=== PATIENT | male | born 1980 | race Caucasian/White ===

== ENCOUNTER 2018-03-12 13:59 | Emergency (ER) | payer MEDICARE, MEDICAID ==
[2018-03-12] MEDS ORDERED: SODIUM CHLORIDE 0.9% 1,000 ML IV ONE (14:16)
[2018-03-12] MEDS ORDERED: MIDAZOLAM 2 MG/2 ML VIAL IVP STA ×2 (14:16→16:31)
--- NOTE | 2018-03-12 14:19 | ED Physician Documentation ---
PD HPI MHE - Stated complaint Stated Complaint: SZ - Chief complaint Chief Complaint: MHE - History obtained from History obtained from: Patient, Other (CHART REVIEW) - History of Present Illness Primary symptom: Other (37-year-old gentleman somehow ambulated in despite his clearly intoxicated state and requested a refill of his Keppra and admits to suicidal ideation. He is quite uncooperative on history and physical. When I enter the room he is somnolent and then he will jerk his head up and looked at me and swear. He is belligerent and labile. He says that he ran out of his Keppra because his left him, when I ask him if his took his medications he simply replies "fuck you.") Review of Systems Unable to obtain: Confused, Intoxicated PD PAST MEDICAL HISTORY - Past Medical History Cardiovascular: Hypertension, Angina, [place] - Past Surgical History Past Surgical History: Yes General: Appendectomy - Present Medications Home Medications: Ambulatory Orders Medication Instructions Recorded Confirmed Furosemide 20 mg PO DAILY 06/16/14 04/14/15 Isosorbide Mononitrate [Isosorbide 30 mg PO DAILY 06/16/14 04/14/15 Mononitrate ER] Lisinopril 10 mg PO DAILY 06/16/14 04/14/15 Metoprolol Tartrate 25 mg PO DAILY 06/16/14 04/14/15 Sertraline HCl 100 mg PO DAILY 06/16/14 04/14/15 diltiaZEM CD [Cardizem Cd] 240 mg PO DAILY 06/16/14 04/14/15 levETIRAcetam [Keppra] 1,500 mg PO BID 01/06/15 04/14/15 Lorazepam [Ativan] 1 mg PO [id number] PRN #30 tablet 04/14/15 Promethazine [Phenergan] 25 - 50 mg PO Q6H PRN #30 tab 04/14/15 Clotrimazole [Athlete's Foot] 60 gm TP BID #60 cream..g. 07/15/15 Ibuprofen 800 mg PO TID PRN #30 tablet 07/15/15 Sulfamethoxazole/Trimethoprim 1 each PO BID #20 tablet 07/15/15 [Bactrim Ds Tablet] cephALEXin [Cephalexin] 500 mg PO TID #30 capsule 12/18/15 levETIRAcetam [Keppra] 3 tab PO BID #120 tablet 03/12/18 - Allergies Allergies/Adverse Reactions: Allergies Allergy/AdvReac Type Severity Reaction Status Date / Time morphine Allergy Hives Verified 01/05/15 18:30 Penicillins Allergy Hives Verified 01/05/15 18:30 - Social History Does the pt smoke?: No Smoking Status: Current every day smoker Does the pt drink ETOH?: No Does the pt have substance abuse?: No - Immunizations Immunizations are current?: No Immunizations: TDAP >10years/unknown - POLST Patient has POLST: No PD ED PE NORMAL - Vitals Vital signs reviewed: Yes - General General: Other (He is vacillating between somnolent and agitated and belligerent. He is swearing a lot and has dilated pupils. He is carrying a knife and when this is taken from him he becomes even more belligerent and requires restraints.) - HEENT HEENT: Other (Dilated pupils, unable to test extraocular movements because of belligerence.) - Neck Neck: Supple, no meningeal sign, No bony TTP - Cardiac Cardiac: RRR, No murmur - Respiratory Respiratory: No respiratory distress, Clear bilaterally - Abdomen Abdomen: Normal bowel sounds, Soft, Non tender - Back Back: No CVA TTP, No spinal TTP - Extremities Extremities: No deformity, No tenderness to palpate, Normal ROM s pain - Neuro Neuro: Other (He is uncooperative with orientation testing.) Eye Opening: Spontaneous Motor: Obeys Commands Verbal: Inappropriate GCS Score: 13 Results - Vitals Vitals: Vital Signs - 24 hr 03/12/18 03/12/18 03/12/18 14:02 16:54 19:23 Temperature 36.0 C L Heart Rate 97 94 89 Respiratory 20 16 17 Rate Blood Pressure 177/111 H 149/107 H 171/133 H O2 Saturation 97 100 100 Oxygen O2 Source Room air - EKG (time done) 1453 Rate: Rate (enter#) (85) Rhythm: NSR [place]: Normal Intervals: Normal [place] QRS: Normal Ischemia: ST elevation c/w repol Computer interpretation: Agree with computer - Labs Labs: Laboratory Tests 03/12/18 03/12/18 03/12/18 13:53 14:40 14:40 WBC 9.2 RBC 5.02 Hgb 16.8 Hct 47.6 MCV 94.7 H MCH 33.5 H MCHC 35.4 RDW 12.5 Plt Count 266 MPV 8.9 Neut # (Auto) 5.9 Lymph # (Auto) 2.6 [place] # (Auto) 0.5 Eos # (Auto) 0.0 Baso # (Auto) 0.0 Absolute Nucleated RBC 0.01 Nucleated RBC % 0.1 Sodium 139 Potassium 3.0 L Chloride 98 L Carbon Dioxide 31 Anion Gap 10.0 BUN 10 Creatinine 0.9 Estimated GFR (MDRD) 96 Glucose 92 Calcium 10.1 Total Bilirubin 0.4 AST 49 H ALT 68 H Alkaline Phosphatase 103 Total Creatine Kinase 45 Troponin I Total Protein 8.9 H Albumin 4.0 Globulin 4.9 H Albumin/Globulin Ratio 0.8 L Lipase 40 Urine Color YELLOW Urine Clarity CLEAR Urine pH 6.0 Ur Specific [place] <=1.005 Urine Protein NEGATIVE Urine Glucose (UA) NEGATIVE Urine Ketones NEGATIVE Urine Occult Blood NEGATIVE Urine Nitrite NEGATIVE Urine Bilirubin NEGATIVE Urine Urobilinogen 0.2 (NORMAL) Ur Leukocyte Esterase NEGATIVE Ur Microscopic Review NOT INDICATED Urine Culture Comments NOT INDICATED Salicylates < 6.0 Urine Opiates Screen POSITIVE H Ur Oxycodone Screen NEGATIVE Urine Methadone Screen NEGATIVE Ur Propoxyphene Screen NEGATIVE Acetaminophen < 10 L Ur Barbiturates Screen NEGATIVE Ur Tricyclics Screen NEGATIVE Ur Phencyclidine Scrn NEGATIVE Ur Amphetamine Screen POSITIVE H U Methamphetamines Scrn POSITIVE H U Benzodiazepines Scrn NEGATIVE Urine Cocaine Screen NEGATIVE U Cannabinoids Screen POSITIVE H Ethyl Alcohol 274.4 03/12/18 14:40 WBC RBC Hgb Hct MCV MCH MCHC RDW Plt Count MPV Neut # (Auto) Lymph # (Auto) [place] # (Auto) Eos # (Auto) Baso # (Auto) Absolute Nucleated RBC Nucleated RBC % Sodium Potassium Chloride Carbon Dioxide Anion Gap BUN Creatinine Estimated GFR (MDRD) Glucose Calcium Total Bilirubin AST ALT Alkaline Phosphatase Total Creatine Kinase Troponin I < 0.04 Total Protein Albumin Globulin Albumin/Globulin Ratio Lipase Urine Color Urine Clarity Urine pH Ur Specific [place]clean Urine Protein Urine Glucose (UA) Urine Ketones Urine Occult Blood Urine Nitrite Urine Bilirubin Urine Urobilinogen Ur Leukocyte Esterase Ur Microscopic Review Urine Culture Comments Salicylates Urine Opiates Screen Ur Oxycodone Screen Urine Methadone Screen Ur Propoxyphene Screen Acetaminophen Ur Barbiturates Screen Ur Tricyclics Screen Ur Phencyclidine Scrn Ur Amphetamine Screen U Methamphetamines Scrn U Benzodiazepines Scrn Urine Cocaine Screen U Cannabinoids Screen Ethyl Alcohol PD MEDICAL DECISION MAKING - ED course ED course: 37-year-old gentleman presents intoxicated on methamphetamines and also alcohol requesting refills of his seizure medication. He is quite belligerent and violence on arrival and had to be restrained for several hours, but after his intoxicants and worn off was much more pleasant and denied suicidality. - Sepsis Event Vital Signs: Vital Signs - 24 hr 03/12/18 03/12/18 03/12/18 14:02 16:54 19:23 Temperature 36.0 C L Heart Rate 97 94 89 Respiratory 20 16 17 Rate Blood Pressure 177/111 H 149/107 H 171/133 H O2 Saturation 97 100 100 Oxygen O2 Source Room air Departure - Departure Disposition: 01 Home, Self Care Clinical Impression: Recurrent seizures, Methamphetamine abuse Epilepsy Qualifiers: Epilepsy type: unspecified Intractability: not intractable Status epilepticus: without status epilepticus Qualified Code(s): G40.909 - Epilepsy, unspecified, not intractable, without status epilepticus Alcoholic intoxication Qualifiers: Complication of substance-induced condition: uncomplicated Qualified Code(s): F10.920 - Alcohol use, unspecified with intoxication, uncomplicated Condition: Good Record reviewed to determine appropriate education?: Yes Instructions: ED Alcohol Intoxication, ED Drug Abuse General Prescriptions: levETIRAcetam [Keppra] 3 tab PO BID #120 tablet Comments: Please refrain from drugs and alcohol and follow-up with your primary care physician for further evaluation, treatment, and medication refills. Your blood pressure was elevated today on check into the emergency department. This does not mean that you have hypertension, it is a common phenomenon to come to the emergency department and have elevated blood pressure. I recommend that you see your primary care physician within the week to have it rechecked when you are feeling better.
[2018-03-12 14:58] LABS: BASOPHILS % (AUTO) 0.3 %; EOSINOPHILS % (AUTO) 0.3 %; HGB - HEMOGLOBIN 16.8 g/dL (14.0-18.0); LYMPHOCYTES # (AUTO) 2.6 10^3/uL (1.5-3.5); LYMPHOCYTES % (AUTO) 28.8 %; MEAN CORPUSCULAR HEMOGLOBIN 33.5 pg (27.0-31.0); MEAN CORPUSCULAR HGB CONC 35.4 g/dL (32.0-36.0); MEAN CORPUSCULAR VOLUME 94.7 fL (80.0-94.0); MEAN PLATELET VOLUME 8.9 fL (7.4-11.4); MONOCYTES # (AUTO) 0.5 10^3/uL (0.0-1.0); MONOCYTES % (AUTO) 5.9 %; NEUTROPHILS # (AUTO) 5.9 10^3/uL (1.5-6.6); NEUTROPHILS % (AUTO) 64.7 %; PLT - PLATELET COUNT 266 10^3/uL (130-450); RED BLOOD COUNT 5.02 10^6/uL (4.70-6.10); RED CELL DISTRIBUTION WIDTH 12.5 % (12.0-15.0); WHITE BLOOD COUNT 9.2 x10^3/uL (4.8-10.8)
[2018-03-12 15:14] LABS: ALBUMIN/GLOBULIN RATIO 0.8 (1.0-2.2); ALKALINE PHOSPHATASE 103 IU/L (42-121); ALT ALANINE AMINOTRANSFERASE 68 IU/L (10-60); AST ASPARTATE AMINOTRANSFERASE 49 IU/L (10-42); BILIRUBIN,TOTAL 0.4 mg/dL (0.2-1.0); BUN - BLOOD UREA NITROGEN 10 mg/dL (6-20); CALCIUM 10.1 mg/dL (8.5-10.3); CARBON DIOXIDE - CO2 31 mmol/L (21-32); CHLORIDE 98 mmol/L (101-111); CK- CREATINE KINASE 45 IU/L (22-269); CREATININE 0.9 mg/dL (0.6-1.2); GFR - MDRD 96 (>89); GLUCOSE 92 mg/dL (70-100); LIPASE 40 U/L (22-51); SALICYLATE < 6.0 mg/dL; SODIUM 139 mmol/L (135-145); TOTAL PROTEIN 8.9 g/dL (6.7-8.2)
[2018-03-12 15:20] LABS: ACETAMINOPHEN < 10 ug/mL (10-30)
[2018-03-12] MEDS ORDERED: HALOPERIDOL 5 MG/ML VIAL ONE (15:25)
[2018-03-12] MEDS ORDERED: HALOPERIDOL 5 MG/ML VIAL IVP ONE (15:25)
[2018-03-12] MEDS ORDERED: POTASSIUM CHLOR 10 MEQ/100 ML 10 MEQ/100 ML BAG IV ONE (15:40)
[2018-03-12] MEDS ORDERED: LORazepam 2 MG/ML VIAL IVP STA (15:42)
[2018-03-12 15:43] LABS: MUDS CUTOFF CONCENTRATIONS CUTOFF CONC BELOW:
[2018-03-12 15:45] LABS: BILIRUBIN,URINE NEGATIVE (NEGATIVE); GLUCOSE, URINE (UA) NEGATIVE (NEGATIVE); KETONES,URINE (UA) NEGATIVE (NEGATIVE); LEUKOCYTE ESTERASE, URINE NEGATIVE (NEGATIVE); NITRITE,URINE NEGATIVE (NEGATIVE); OCCULT BLOOD,URINE NEGATIVE (NEGATIVE); PROTEIN,URINE NEGATIVE (NEGATIVE); UROBILINOGEN,URINE 0.2 (NORMAL) E.U./dL (NORMAL)
[2018-03-12 15:46] LABS: CLARITY,URINE CLEAR (CLEAR)
[2018-03-12 15:54] LABS: COCAINE SCREEN URINE NEGATIVE (NEGATIVE)
[2018-03-12 15:55] LABS: AMPHETAMINE SCREEN,URINE POSITIVE (NEGATIVE); BENZODIAZEPINES SCREEN, URINE NEGATIVE (NEGATIVE); METHADONE SCREEN, URINE NEGATIVE (NEGATIVE); METHAMPHETAMINES SCREEN, URINE POSITIVE (NEGATIVE); OPIATE SCREEN, URINE POSITIVE (NEGATIVE); OXYCODONE SCREEN, URINE NEGATIVE (NEGATIVE); PROPOXYPHENE SCREEN, URINE NEGATIVE (NEGATIVE); TRICYCLIC ANTIDEPRESSANT,URINE NEGATIVE (NEGATIVE)
[2018-03-12] MEDS ORDERED: diphenhydrAMINE INJ 50 MG/ML VIAL IVP STA (16:31)
[2018-03-12] MEDS ORDERED: levETIRAcetam 250 MG TABLET PO STA (19:14)
[2018-03-12] MEDS: LORazepam 2 MG/ML VIAL IVP STA ×2 (19:25→19:27)
[2018-03-12 20:26] VITALS: BP 159/100
== END 2018-03-12 20:30 | disposition home or self-care (01) ==
LOC: ED 13:59
DX: G40.909 Epilepsy, unspecified, not intractable, without status epilepticus (principal); F10.920 Alcohol use, unspecified with intoxication, uncomplicated; F15.129 Other stimulant abuse with intoxication, unspecified; I10 Essential (primary) hypertension; Z78.1 Physical restraint status
CPT/HCPCS: 36415; 80053; 81003; 82550; 83690; 84484; 85025; 93005; 96365; 96366; 96375; 96376; 99284; A9270; J1200; J2060; 80306; 80307; 80320; 80329; 81001; 87086

== ENCOUNTER 2018-03-24 16:04 | Inpatient (IN) | payer MEDICARE, MEDICAID ==
[2018-03-24 17:09] LABS: BASOPHILS % (AUTO) 0.3 %; EOSINOPHILS # (AUTO) 0.1 10^3/uL (0.0-0.7); EOSINOPHILS % (AUTO) 0.4 %; HGB - HEMOGLOBIN 13.3 g/dL (14.0-18.0); LYMPHOCYTES % (AUTO) 8.7 %; MEAN CORPUSCULAR HEMOGLOBIN 33.5 pg (27.0-31.0); MEAN CORPUSCULAR HGB CONC 35.2 g/dL (32.0-36.0); MEAN PLATELET VOLUME 8.9 fL (7.4-11.4); MONOCYTES # (AUTO) 0.9 10^3/uL (0.0-1.0); MONOCYTES % (AUTO) 7.9 %; NEUTROPHILS # (AUTO) 9.9 10^3/uL (1.5-6.6); NEUTROPHILS % (AUTO) 82.7 %; PLT - PLATELET COUNT 155 10^3/uL (130-450); RED BLOOD COUNT 3.96 10^6/uL (4.70-6.10); RED CELL DISTRIBUTION WIDTH 12.7 % (12.0-15.0); WHITE BLOOD COUNT 11.9 x10^3/uL (4.8-10.8)
[2018-03-24 17:20] LABS: ALBUMIN/GLOBULIN RATIO 0.8 (1.0-2.2); BILIRUBIN,TOTAL 0.7 mg/dL (0.2-1.0); CALCIUM 8.6 mg/dL (8.5-10.3); TOTAL PROTEIN 6.8 g/dL (6.7-8.2)
[2018-03-24] MEDS ORDERED: KETOROLAC 60 MG/2 ML VIAL IVP STA (19:02)
[2018-03-24] MEDS ORDERED: VANCOMYCIN INJ 2 GM in SODIUM CHLORIDE 0.9% 500 ML IV STA (19:02)
[2018-03-24] MEDS ORDERED: cefTRIAXone 1 GM VIAL IVP STA (19:02)
[2018-03-24] MEDS ORDERED: SODIUM CHLORIDE 0.9% 1,000 ML IV ONE (19:26)
--- NOTE | 2018-03-24 19:26 | ED Physician Documentation ---
History of Present Illness - Stated complaint Stated Complaint: RED L UPPERARM/PX/L SHOULDER WOUND - Chief complaint Chief Complaint: Wound - History obtained from History obtained from: Patient - History of Present Illness Timing: Yesterday Pain level max: 10 Pain level now: 10 Quality: "pain" Improved by: nothing Worsened by: palpation, movement - Additonal information Additional information: Patient is a 37-year-old male who presents to the emergency department for redness and swelling to the left arm. This started yesterday and has steadily worsened. He is having subjective fevers as well as chills. Has not taken anything for this. Denies any IV or IM drug use. States he did use heroin in the past, but has not used for several years. Review of Systems Ten Systems: 10 systems reviewed and negative Constitutional: reports: Fever, Chills Ears: denies: Ear pain, Drainage/discharge Nose: denies: Rhinorrhea / runny nose, Congestion Throat: denies: Sore throat Cardiac: denies: Chest pain / pressure Respiratory: denies: Cough GI: denies: Abdominal Pain, Nausea, Vomiting, Diarrhea Musculoskeletal: denies: Neck pain, Back pain Neurologic: denies: Headache PD PAST MEDICAL HISTORY - Past Medical History Cardiovascular: Hypertension, Angina, [place] Neuro: Seizure disorder - Past Surgical History Past Surgical History: Yes General: Appendectomy - Present Medications Home Medications: Ambulatory Orders Medication Instructions Recorded Confirmed Furosemide 20 mg PO DAILY 06/16/14 04/14/15 Isosorbide Mononitrate [Isosorbide 30 mg PO DAILY 06/16/14 04/14/15 Mononitrate ER] Lisinopril 10 mg PO DAILY 06/16/14 04/14/15 Metoprolol Tartrate 25 mg PO DAILY 06/16/14 04/14/15 Sertraline HCl 100 mg PO DAILY 06/16/14 04/14/15 diltiaZEM CD [Cardizem Cd] 240 mg PO DAILY 06/16/14 04/14/15 levETIRAcetam [Keppra] 1,500 mg PO BID 01/06/15 04/14/15 Lorazepam [Ativan] 1 mg PO [id number] PRN #30 tablet 04/14/15 Promethazine [Phenergan] 25 - 50 mg PO Q6H PRN #30 tab 04/14/15 Clotrimazole [Athlete's Foot] 60 gm TP BID #60 cream..g. 07/15/15 Ibuprofen 800 mg PO TID PRN #30 tablet 07/15/15 Sulfamethoxazole/Trimethoprim 1 each PO BID #20 tablet 07/15/15 [Bactrim Ds Tablet] cephALEXin [Cephalexin] 500 mg PO TID #30 capsule 07/15/15 levETIRAcetam [Keppra] 3 tab PO BID #120 tablet 03/12/18 - Allergies Allergies/Adverse Reactions: Allergies Allergy/AdvReac Type Severity Reaction Status Date / Time morphine Allergy Hives Verified 01/05/15 18:30 Penicillins Allergy Hives Verified 01/05/15 18:30 - Social History Does the pt smoke?: No Smoking Status: Current every day smoker Does the pt drink ETOH?: No Does the pt have substance abuse?: No - Immunizations Immunizations are current?: No Immunizations: TDAP >10years/unknown - POLST Patient has POLST: No PD ED PE NORMAL - Vitals Vital signs reviewed: Yes - General General: Alert and oriented X 3, No acute distress - HEENT HEENT: Moist mucous membranes - Neck Neck: Supple, no meningeal sign - Cardiac Cardiac: RRR, No murmur - Respiratory Respiratory: No respiratory distress, Clear bilaterally - Abdomen Abdomen: Soft, Non tender, Non distended - Derm Derm: Warm and dry - Neuro Neuro: Alert and oriented X 3 Results - Vitals Vitals: Vital Signs - 24 hr 03/24/18 03/24/18 16:34 19:01 Temperature 37.1 C Heart Rate 112 H 81 Respiratory 14 18 Rate Blood Pressure 161/101 H 142/92 H O2 Saturation 99 99 Oxygen O2 Source Room air - Labs Labs: Laboratory Tests 03/24/18 03/24/18 03/24/18 17:00 17:00 17:00 WBC 11.9 H RBC 3.96 L Hgb 13.3 L Hct 37.6 L MCV 95.0 H MCH 33.5 H MCHC 35.2 RDW 12.7 Plt Count 155 MPV 8.9 Neut # (Auto) 9.9 H Lymph # (Auto) 1.0 L [place] # (Auto) 0.9 Eos # (Auto) 0.1 Baso # (Auto) 0.0 Absolute Nucleated RBC 0.01 Nucleated RBC % 0.1 Sodium 133 L Potassium 3.2 L Chloride 95 L Carbon Dioxide 28 Anion Gap 10.0 BUN 15 Creatinine 1.0 Estimated GFR (MDRD) 85 L Glucose 120 H Lactic Acid 0.9 Calcium 8.6 Total Bilirubin 0.7 AST 34 ALT 32 Alkaline Phosphatase 95 Total Protein 6.8 Albumin 3.0 L Globulin 3.8 Albumin/Globulin Ratio 0.8 L Lipase 29 - Rads (name of study) Left humerus x-ray Radiology: Prelim report reviewed, EMP read contemporaneously, See rad report ( Soft tissue swelling without mass or foreign object. No bony abnormality) PD MEDICAL DECISION MAKING - ED course Complexity details: reviewed results, re-evaluated patient, considered differential, d/w patient, d/w customer service consultant ED course: Patient is a 37-year-old male who presents to the emergency department with severe left arm swelling and cellulitis. No drainable abscess at this time. Bedside ultrasound was passed over the largest area of induration with no abscess visible at this time. Likely that this is early and will likely coalesce into an abscess that will need drainage. He was started on Vanco and Rocephin. Will admit for further care. No evidence of necrotizing soft tissue infection at this time. Discussed the case with Dr. Izaguirre, hospitalist who accepts. This document was made in part using voice recognition software. While efforts are made to proofread this document, sound alike and grammatical errors may occur. - Sepsis Event Vital Signs: Vital Signs - 24 hr 03/24/18 03/24/18 16:34 19:01 Temperature 37.1 C Heart Rate 112 H 81 Respiratory 14 18 Rate Blood Pressure 161/101 H 142/92 H O2 Saturation 99 99 Oxygen O2 Source Room air Departure - Departure Disposition: [facility] DC/Xfer Clinical Impression: Cellulitis Qualifiers: Site of cellulitis: extremity Site of cellulitis of extremity: upper extremity Laterality: left Qualified Code(s): L03.114 - Cellulitis of left upper limb Condition: Stable Discharge Date/Time: 03/24/18 20:44
[2018-03-24] MEDS ORDERED: fentaNYL 100 MCG/2 ML VIAL IVP STA (19:51)
[2018-03-24] MEDS ORDERED: ONDANSETRON 4 MG/2 ML VIAL IVP PRN (20:17)
[2018-03-24] MEDS ORDERED: TEMAZEPAM 15 MG CAPSULE PO PRN (20:17)
--- NOTE | 2018-03-24 20:18 | XRAY Report ---
Reason: L upper arm swelling, infection Procedure Date: 03/24/2018 Accession Number: [id number] / [id number] Procedure: XR - Humerus LT CPT Code: FULL RESULT: EXAM: LEFT HUMERUS RADIOGRAPHY EXAM DATE: 03/24/2018 08:10 PM. CLINICAL HISTORY: Left proximal humerus redness and swelling. COMPARISON: None. TECHNIQUE: 2 views. FINDINGS: Bones: No fracture. No suspicious focal osseous lesion. No periostitis or cortical erosion. Joints: Normal. No effusions or subluxations in the visualized shoulder or elbow joints. Soft Tissues: Diffuse subcutaneous edema/soft tissue swelling present throughout the visualized upper arm. IMPRESSION: Normal humerus with soft tissue swelling throughout the visualized upper arm. Query sign/symptoms of cellulitis or DVT. RADIA
[2018-03-24] MEDS: LACTOBACILLUS RHAMNOSUS GG CAPSULE PO SCH (21:31)
[2018-03-24] MEDS: oxyCODONE 5 MG TABLET PO PRN (21:31)
[2018-03-24] MEDS ORDERED: POTASSIUM CHLORIDE 20 MEQ TABLET PO ONE (21:59)
[2018-03-24] MEDS ORDERED: diphenhydrAMINE INJ 50 MG/ML VIAL IVP PRN (22:00)
[2018-03-25] MEDS: SODIUM CHLORIDE FLUSH 0.9% 10 ML SYRINGE IVP SCH ×3 (00:37→18:13)
[2018-03-25 00:48] LABS: MUDS CUTOFF CONCENTRATIONS CUTOFF CONC BELOW:
[2018-03-25 01:21] LABS: AMPHETAMINE SCREEN,URINE POSITIVE (NEGATIVE); BENZODIAZEPINES SCREEN, URINE NEGATIVE (NEGATIVE); COCAINE SCREEN URINE NEGATIVE (NEGATIVE); METHADONE SCREEN, URINE NEGATIVE (NEGATIVE); METHAMPHETAMINES SCREEN, URINE POSITIVE (NEGATIVE); OPIATE SCREEN, URINE POSITIVE (NEGATIVE); OXYCODONE SCREEN, URINE NEGATIVE (NEGATIVE); PROPOXYPHENE SCREEN, URINE NEGATIVE (NEGATIVE); TRICYCLIC ANTIDEPRESSANT,URINE NEGATIVE (NEGATIVE)
--- NOTE | 2018-03-25 06:35 | HISTORY & PHYSICAL EXAMINATION ---
DATE OF SERVICE: 03/24/2018 Physician: Angela Izaguirre MD CHIEF COMPLAINT: Left upper extremity swelling. HISTORY OF PRESENT ILLNESS: The patient is a 37-year-old white male with past medical history of drug use, who presented to [facility] ER on the evening of 03/24 complaining of two days' history of right upper extremity and shoulder swelling, redness, pain and warmth. The patient reported that he has been undergoing a divorce, and sleeping in a tent. He claims that he got bit by a spider two days ago, and subsequently his left upper arm started to swell up. Notably, he does have history of right hand cellulitis when he presented with the same story of spider bite. He has history of drug use and denied drug use several years ago when he was admitted, however, his toxicology screen was positive back then. The patient claims that he has a history of MRSA "in the stomach." Reviewing electronic medical record, he had a positive wound culture from the abdomen, positive for MRSA in 06/2015. Upon presentation to the ER, the patient was tachycardic with heart rate of 112 , had elevated temperature 37.1, blood pressure was 160/100, respiratory rate was 14, oxygen saturation 99% on room air. White blood cell count was slightly elevated at 11.9, potassium was 3.2. Toxicology screen was positive for amphetamine, methamphetamine, opiates, and cannabinoids. The patient had cellulitis involving the entire left upper extremity between the shoulder and the elbow. The patient underwent ultrasound, which was done by the ER physician , it did not show collection. He subsequently had an x-ray of the arm to rule out foreign body. The x-ray showed diffuse tissue swelling, no other abnormality. The patient received 2 grams vancomycin and 1 gram of ceftriaxone initially. Subsequently, he developed reaction with itching. Notably, HE HAS ALLERGY TO PENICILLIN. PAST MEDICAL HISTORY 1. IV drug use. 2. Right hand cellulitis, was admitted in 2014. 3. Hypertension. 4. History of deep venous thrombosis. 5. History of methamphetamine use-related acute coronary syndrome/coronary artery disease, had cardiac catheterization in 2003 in [place]. 6. Seizure, had been on Keppra. 7. Depression. 8. Psoriasis. 9. History of methicillin-resistant Staphylococcus aureus positive wound culture in 2014. ALLERGIES: PENICILLIN. OUTPATIENT MEDICATIONS: Please note that the medication reconciliation is not yet available. In the past, the patient was on Keppra and on multiple blood pressure medications. He could not provide medication list when I interviewed him. SOCIAL HISTORY: The patient smokes cigarettes. Denies alcohol or drug use; however, his toxicology screen is positive for multiple substances. PRIMARY CARE PHYSICIAN: No PCP. FAMILY HISTORY: The patient tells me he does not know anything about his parents. REVIEW OF SYSTEMS: Please see pertinent positives listed above in history of present illness. The patient did not report additional complaints on the 12- point review. PHYSICAL EXAMINATION VITAL SIGNS: Please see listed above at history of present illness. GENERAL: The patient is a well-developed male who was not in distress. MUSCULOSKELETAL: Sizable swelling of the left upper extremity involving the entire upper arm above the elbow. There was a small focal punch, wound-like a lesion in the middle of the deltoid. There was no palpable collection. SKIN: With left upper arm cellulitis, otherwise unremarkable, except for small excoriations and wounds on the face and lower extremities. There was a burn wound-like lesion on the left upper neck area. HEENT: Oral mucosa, no ulcers, no thrush. CARDIOVASCULAR: S1, S2, regular tachycardia. RESPIRATORY: Clear to auscultation. NEUROLOGIC: Alert, oriented, nonfocal. PSYCH: Cooperative. ABDOMEN: Soft, benign. Normal bowel tones. ASSESSMENT AND PLAN/ACTIVE ISSUES/DIAGNOSES 1. Extensive left upper extremity cellulitis. 2. Systemic inflammatory response with tachycardia. 3. Hypokalemia. 4. Polysubstance abuse. 5. History of methicillin-resistant Staphylococcus aureus. 6. Allergic reaction to either vancomycin or ceftriaxone. PLAN AND ORDERS 1. Patient is getting admitted as an inpatient. 2. Blood cultures were sent. 3. For now, I switched to Levaquin: We will check MRSA screen. If positive, then zyvox could be added. I SUSPECT ALLERGIC REACTION WAS FOR CEFTRIAXONE. However, at this point, I am not sure, and we will need to follow the clinical course. The patient received 2 grams vancomycin initially, which will cover him for at least 24 hours. Further antibiotic coverage could be decided per the clinical course. 4. Replace potassium. 5. Gave Benadryl for allergic reaction and switched antibiotic. 6. Bowel prophylaxis. 7. FULL CODE. 8. Deep venous thrombosis prophylaxis. ATTESTATION: I certify that the reasonable expectation for this patient is to remain hospitalized for 48 hours; however, to get discharged or transferred within 96 hours. Time spent in the care of this patient was 50 minutes. TD: 03/25/2018 04:06 KARLY
[2018-03-25] MEDS: POLYETHYLENE GLYCOL 3350 17 GM PACKET PO SCH (09:02)
[2018-03-25] MEDS: LACTOBACILLUS RHAMNOSUS GG CAPSULE PO SCH (09:03)
[2018-03-25] MEDS: oxyCODONE 5 MG TABLET PO PRN ×4 (09:03→23:02)
[2018-03-25] MEDS: ENOXAPARIN 40 MG/0.4 ML SYRINGE SUBQ SCH (09:03)
[2018-03-25] MEDS: levoFLOXacin 500 MG/100 ML 500 MG/100 ML BAG IV SCH (10:35)
[2018-03-25] MEDS: SODIUM CHLORIDE FLUSH 0.9% 10 ML SYRINGE IVP PRN ×3 (10:35→20:08)
[2018-03-25] MEDS: KETOROLAC 15 MG/ML VIAL IVP PRN ×2 (11:48→20:08)
[2018-03-25] MEDS: ACETAMINOPHEN 325 MG TABLET PO PRN (11:49)
--- NOTE | 2018-03-25 13:49 | PROVIDER PROGRESS NOTE ---
Subjective - Prog Note Date Prog Note Date: 03/25/18 Prog Note Time: 13:47 - Subjective Pt reports feeling: No change Subjective: Gustabo complains of extreme left upper arm pain. He admits to sleeping a lot. He denies increased shortness of breath, nausea, vomiting, or a new cough. Current Medications - Current Medications Current Medications: Active Medications Acetaminophen (Tylenol) 650 mg PO Q4HR PRN PRN Reason: Pain 1 to 4 Last Admin: 03/25/18 11:49 Dose: 650 mg Diphenhydramine HCl (Benadryl Inj) 25 mg IVP Q6H PRN PRN Reason: Allergy Symptoms Last Admin: 03/24/18 22:06 Dose: 25 mg Enoxaparin Sodium (Lovenox) 40 mg SUBQ DAILY [facility] Last Admin: 03/25/18 09:03 Dose: 40 mg Levofloxacin (Levaquin 500 Mg/100 Ml) 500 mg in 100 mls @ 100 mls/hr IV Q24H [facility] Last Infusion: 03/25/18 11:41 Dose: Infused Ketorolac Tromethamine (Toradol Inj (15mg)) 15 mg IVP Q6HR PRN PRN Reason: PAIN Stop: 03/30/18 03:50 Last Admin: 03/25/18 11:48 Dose: 15 mg Lactobacillus Rhamnosus (Culturelle) 1 cap PO DAILY [facility] Last Admin: 03/25/18 09:03 Dose: 1 cap Ondansetron HCl (Zofran Inj) 4 mg IVP Q6HR PRN PRN Reason: Nausea / Vomiting Oxycodone HCl (Roxicodone) 5 mg PO Q4HR PRN PRN Reason: Pain 5 to 7 Last Admin: 03/25/18 13:15 Dose: 5 mg Polyethylene Glycol (Miralax) 17 gm PO DAILY [facility] Last Admin: 03/25/18 09:02 Dose: 17 gm Sodium Chloride (Normal Saline Flush 0.9%) 10 ml IVP PRN PRN PRN Reason: NEEDED PER PROVIDER ORDERS Last Admin: 03/25/18 11:42 Dose: 10 ml Sodium Chloride (Normal Saline Flush 0.9%) 10 ml IVP 0100,0900,1700 [facility] Last Admin: 03/25/18 09:03 Dose: 10 ml Temazepam (Restoril) 15 mg PO QPM PRN PRN Reason: Insomnia Furosemide 20 mg PO DAILY 06/16/14 Isosorbide Mononitrate [Isosorbide Mononitrate ER] 30 mg PO DAILY 06/16/14 Lisinopril 10 mg PO DAILY 06/16/14 Metoprolol Tartrate 25 mg PO DAILY 06/16/14 Sertraline HCl 100 mg PO DAILY 06/16/14 diltiaZEM CD [Cardizem Cd] 240 mg PO DAILY 06/16/14 levETIRAcetam [Keppra] 1,500 mg PO BID 01/06/15 Objective - Vital Signs/Intake & Output Reviewed Vital Signs: Yes Vital Signs: Vital Signs x48h Temp Pulse Resp BP Pulse Ox 03/25/18 08:00 36.7 C 83 20 157/101 H 99 Intake & Output: Intake & Output 03/22/18 03/23/18 03/24/18 03/25/18 23:59 23:59 23:59 23:59 Intake Total 500 1540 Output Total 300 Balance 500 1240 - Objective General Appearance: positive: Alert, Moderate distress, Anxious Eyes Bilateral: positive: Normal inspection, PERRL ENT: positive: ENT inspection nml, Pharynx nml, No signs of dehydration Neck: positive: Nml inspection, Thyroid nml, No JVD, Trachea midline Respiratory: positive: Chest non-tender, No respiratory distress, Breath sounds nml Cardiovascular: positive: Regular rate & rhythm, No gallop, Systolic murmur, Decreased pulse(s) Peripheral Pulses: 2+ Radial (R), 2+ Radial (L), 2+ Dorsalis pedis (R), 2+ Dorsalis pedis (L) Abdomen: positive: Non-tender, No organomegaly, Nml bowel sounds, No distention Back: positive: Nml inspection Skin: positive: No rash, Warm, Dry, Other (multiple scattered scabs Left bicep has a boil appearing lesion with surrounding cellulitis.) Extremities: positive: Non-tender, Full ROM, Nml appearance, No pedal edema Neurologic/Psychiatric: positive: Oriented x3, CN's nml (2-12), Motor nml, Sensation nml, Depressed mood/affect Reflexes: Bicep (R): 4+, Bicep (L): 4+ - Lab Results Fish Bones: 03/26/18 04:10 03/26/18 04:10 Other Labs: Lab Results x24hrs 03/25/18 Range/Units 00:38 Urine Opiates Screen POSITIVE H (NEGATIVE) Ur Oxycodone Screen NEGATIVE (NEGATIVE) Urine Methadone Screen NEGATIVE (NEGATIVE) Ur Propoxyphene Screen NEGATIVE (NEGATIVE) Ur Barbiturates Screen NEGATIVE (NEGATIVE) Ur Tricyclics Screen NEGATIVE (NEGATIVE) Ur Phencyclidine Scrn NEGATIVE (NEGATIVE) Ur Amphetamine Screen POSITIVE H (NEGATIVE) U Methamphetamines Scrn POSITIVE H (NEGATIVE) U Benzodiazepines Scrn NEGATIVE (NEGATIVE) Urine Cocaine Screen NEGATIVE (NEGATIVE) U Cannabinoids Screen POSITIVE H (NEGATIVE) ABX Reporting Has patient been on IV antibiotics over the past 48 hours?: Yes Assessment/Plan - Problem List (1) Left arm cellulitis Impression: Upon exam, the patient has a very raised, hot, and localized area in which there is a centralized "boil" appearing lesion with the surrounding tissue cellulitis. The patient's story is that he believes this is from an insect. He denies injectable drug use. This wound is extremely uncomfortable for the patient and he jumps when he brushes up against it. He was given vanco and Rocephin in the ED, that has now been changed to Levofloxacin due to itching- allergy. I called Dr. Cortez who suggests further imaging to determine the route of specialist, I & D would be helpful. Plan: Obtain Left arm CT, contact appropriate consulting service depending on the location and depth of this wound. (2) Homelessness Impression: The patient apparently lives in a tent in [place] as he is going through a divorce. Plan: contact social work for support. (3) Methamphetamine abuse Impression: The patient has a history of this and was found positive for this substance upon admission. Today, he continues to deny any injectable drugs. He is found to have multiple scabbed areas and states that since he has been staying in the tent he has not been able to shower and this causes extra itching. There are no areas which appear to be open. Plan: Monitor for suspicious visitors. Keep all syringes out of the waste basket in the event he keeps these for future use. Offer social service support. (4) Hypokalemia Impression: The patient was noted to be slightly low at 3.2 and this may have been due to lack of PO intake leading up to the admission. He received a LR bolus, and has been eating meals today. Plan: Daily labs and monitor for diarrhea and or poor PO intake. We will give supplements as needed.
[2018-03-25] MEDS ORDERED: IOPAMIDOL-300 100 ML VIAL ONE (14:41)
--- NOTE | 2018-03-25 15:36 | CONSULTATION NOTE ---
Referring Provider Name of Referring Provider:: Tracie Galvan NP Consult Date: 03/25/18 Chief Complaint - Chief Complaint Chief Complaint: pain and swelling Left arm History of Present Illness - Admitted From Admitted From:: ED - History Obtained From Records Reviewed: yes History obtained from: pt - History of Present Illness HPI Comment/Other: 37y/o man with h/o IV drug abuse admitted to ICU with cellulitis involving the left upper arm. He states he was bit by a spider 2days ago. He denies any drainage from the area. He states it is extremely painful. He has had numerous previous episodes of cellulitis and abscesses including a documented episode of MRSA of the abdominal wall. Xray of the arm showed extensive swelling of the entire visualized arm. He has a raised area centrally within the erythematous area and surgical consult was requested to determine if I&D is indicated. History - Past Medical History Cardiovascular: reports: Hypertension, Angina, [place] Respiratory: reports: None Neuro: reports: Seizure disorder Endocrine/Autoimmune: reports: None GI: reports: None : reports: None HEENT: reports: None Psych: reports: Panic attacks, Post traumatic stress disorder Musculoskeletal: reports: None Derm: reports: Psoriasis MRSA Hx?: Yes Other Past Medical History: cellulitis and abscess of various locations - Past Surgical History General: reports: Appendectomy - Substance History Use: Uses substance without health or social issues: Tobacco, Amphetamine ( denies but positive tox screen), Cannabis (denied but positive tox screen), Opioid (denied but positive tox screen) - POLST Patient has POLST: No Meds/Allgy - Home Medications Home Medications: Ambulatory Orders Medication Instructions Recorded Confirmed Furosemide 20 mg PO DAILY 06/16/14 04/14/15 Isosorbide Mononitrate [Isosorbide 30 mg PO DAILY 06/16/14 04/14/15 Mononitrate ER] Lisinopril 10 mg PO DAILY 06/16/14 04/14/15 Metoprolol Tartrate 25 mg PO DAILY 06/16/14 04/14/15 Sertraline HCl 100 mg PO DAILY 06/16/14 04/14/15 diltiaZEM CD [Cardizem Cd] 240 mg PO DAILY 06/16/14 04/14/15 levETIRAcetam [Keppra] 1,500 mg PO BID 01/06/15 04/14/15 Lorazepam [Ativan] 1 mg PO [id number] PRN #30 tablet 04/14/15 Promethazine [Phenergan] 25 - 50 mg PO Q6H PRN #30 tab 04/14/15 Clotrimazole [Athlete's Foot] 60 gm TP BID #60 cream..g. 07/15/15 Ibuprofen 800 mg PO TID PRN #30 tablet 07/15/15 Sulfamethoxazole/Trimethoprim 1 each PO BID #20 tablet 07/15/15 [Bactrim Ds Tablet] cephALEXin [Cephalexin] 500 mg PO TID #30 capsule 07/15/15 levETIRAcetam [Keppra] 3 tab PO BID #120 tablet 03/12/18 - Allergies Allergies/Adverse Reactions: Allergies Allergy/AdvReac Type Severity Reaction Status Date / Time morphine Allergy Hives Verified 01/05/15 18:30 Penicillins Allergy Hives Verified 01/05/15 18:30 Review of Systems - Integumentary Integumentary: reports: Other (painful to touch skin of left arm even lightly) - All Other Systems All Other Systems: reports: Reviewed and negative Exam - Vital Signs Reviewed Vital Signs: Yes Vital Signs: Vital Signs x48h Temp Pulse Resp BP Pulse Ox 03/25/18 08:00 36.7 C 83 20 157/101 H 99 - Physical Exam General Appearance: positive: No acute distress, Alert Eyes Bilateral: positive: EOMI, No scleral icterus Neck: positive: No JVD, Trachea midline Respiratory: positive: No respiratory distress, Breath sounds nml Cardiovascular: positive: Regular rate & rhythm Peripheral Pulses: positive: 2+ Abdomen: positive: Non-tender, Nml bowel sounds, No distention Extremities: positive: Other (erythema and swelling of left upper arm midway between elbow and shoulder; centrally within the erythema is a raised lesion that is not draining but is exquisitely tender and he would not allow me to palpate it sufficiently to determine fluctuance.) Neurologic/Psychiatric: positive: Oriented x3, Other (no focal deficits) Conclusion/Plan - Diagnosis Diagnosis: cellulitis of left upper arm - Plan Plan: Continue with IV ATBX. Awaiting CT of Left arm to evaluate for a deeper process that may require I&D. CT shows cellulitis of left chest wall and arm with 3cm abscess of left upper arm just anterior to deltoid muscle. Will plan for I&D. - Lab Results Lab results reviewed: Yes Fish Bones: 03/24/18 17:00 03/24/18 17:00
[2018-03-25] MEDS: NICOTINE 14 MG PATCH TOP SCH (15:49)
[2018-03-25] MEDS ORDERED: IOPAMIDOL-300 100 ML VIAL IVP ONE (16:26)
--- NOTE | 2018-03-25 17:23 | CT Report ---
Reason: CELLULITIS, CYST, ABSCESS Procedure Date: 03/25/2018 Accession Number: [id number] / [id number] Procedure: CT - Upper Extremity Left W/ CPT Code: FULL RESULT: EXAM: LEFT SHOULDER CT WITH CONTRAST EXAM DATE: 03/25/2018 03:36 PM. CLINICAL HISTORY: Soft tissue cellulitis versus abscess of the left shoulder. COMPARISON: Humerus radiograph 03/24/2018. TECHNIQUE: Thin-section axial images were acquired of the shoulder after administration of intravenous contrast. IV contrast: Isovue-300. Post-processing: Coronal and sagittal reformats. Other: None. In accordance with CT protocol optimization, one or more of the following dose reduction techniques were utilized for this exam: automated exposure control, adjustment of mA and/or KV based on patient size, or use of iterative reconstructive technique. FINDINGS: Bones: No fracture or bone lesion. Acromion type 1. Joints: The glenohumeral and acromioclavicular joints are normal. No large effusions. Musculature: Normal. No fatty atrophy. Other: Subcutaneous edema is seen in the left upper chest wall and in the left upper arm. There is a subcutaneous abscess anterior to the distal deltoid musculature. It measures 3.1 x 1.6 x 2.2 cm (series 4, image 190). IMPRESSION: Cellulitis of the left upper chest wall and left upper arm. 3.1 cm subcutaneous abscess anterior to the distal deltoid musculature. [facility]
[2018-03-25] MEDS ORDERED: cefTRIAXone 1 GM in SODIUM CHLORIDE 0.9% MINIBAG 100 ML IV SCH (20:00)
[2018-03-25] MEDS: levETIRAcetam 250 MG TABLET PO SCH (23:02)
[2018-03-26] MEDS: SODIUM CHLORIDE FLUSH 0.9% 10 ML SYRINGE IVP SCH ×4 (01:10→23:39)
[2018-03-26] MEDS: KETOROLAC 15 MG/ML VIAL IVP PRN ×4 (02:10→23:39)
[2018-03-26] MEDS: SODIUM CHLORIDE FLUSH 0.9% 10 ML SYRINGE IVP PRN ×3 (02:10→13:05)
[2018-03-26 04:44] LABS: BASOPHILS % (AUTO) 0.3 %; EOSINOPHILS # (AUTO) 0.1 10^3/uL (0.0-0.7); EOSINOPHILS % (AUTO) 0.8 %; HGB - HEMOGLOBIN 14.1 g/dL (14.0-18.0); LYMPHOCYTES # (AUTO) 1.2 10^3/uL (1.5-3.5); LYMPHOCYTES % (AUTO) 12.9 %; MEAN CORPUSCULAR HGB CONC 35.2 g/dL (32.0-36.0); MEAN CORPUSCULAR VOLUME 96.8 fL (80.0-94.0); MEAN PLATELET VOLUME 9.2 fL (7.4-11.4); MONOCYTES # (AUTO) 0.7 10^3/uL (0.0-1.0); MONOCYTES % (AUTO) 7.1 %; NEUTROPHILS # (AUTO) 7.4 10^3/uL (1.5-6.6); NEUTROPHILS % (AUTO) 78.9 %; PLT - PLATELET COUNT 158 10^3/uL (130-450); RED BLOOD COUNT 4.13 10^6/uL (4.70-6.10); RED CELL DISTRIBUTION WIDTH 12.8 % (12.0-15.0); WHITE BLOOD COUNT 9.3 x10^3/uL (4.8-10.8)
[2018-03-26 04:56] LABS: ALBUMIN 3.1 g/dL (3.2-5.5); ALBUMIN/GLOBULIN RATIO 0.7 (1.0-2.2); BILIRUBIN,TOTAL 0.3 mg/dL (0.2-1.0); CREATININE 0.8 mg/dL (0.6-1.2); CRP - C-REACTIVE PROTEIN 5.5 mg/dL (0-1.0); TOTAL PROTEIN 7.3 g/dL (6.7-8.2)
[2018-03-26] MEDS: oxyCODONE 5 MG TABLET PO PRN ×5 (05:16→23:37)
[2018-03-26] MEDS: levETIRAcetam 250 MG TABLET PO SCH ×2 (09:00→21:10)
[2018-03-26] MEDS: ENOXAPARIN 40 MG/0.4 ML SYRINGE SUBQ SCH (09:00)
[2018-03-26] MEDS: SERTRALINE 50 MG TABLET PO SCH (09:00)
[2018-03-26] MEDS: LACTOBACILLUS RHAMNOSUS GG CAPSULE PO SCH (09:01)
[2018-03-26] MEDS: METOPROLOL SUCCINATE 50 MG TABLET PO SCH (09:01)
[2018-03-26] MEDS: POLYETHYLENE GLYCOL 3350 17 GM PACKET PO SCH (09:02)
[2018-03-26] MEDS: ACETAMINOPHEN 325 MG TABLET PO PRN ×2 (09:02→16:47)
[2018-03-26] MEDS: NICOTINE 14 MG PATCH TOP SCH (09:03)
[2018-03-26] MEDS: levoFLOXacin 500 MG/100 ML 500 MG/100 ML BAG IV SCH (09:50)
[2018-03-26] MEDS ORDERED: LORazepam 2 MG/ML VIAL IVP PRN (12:33)
--- NOTE | 2018-03-26 12:47 | ANESTHESIA ---
Pre-Anesthesia VS, & Labs - Diagnosis Diagnosis cellulitis of left upper arm - Procedure Incision/drainage left arm Vital Signs: Temp Pulse Resp BP Pulse Ox 36.9 C 85 20 151/105 H 100 03/26/18 08:43 03/26/18 08:43 03/26/18 08:43 03/26/18 08:59 03/26/18 08:43 Height 6 ft 1 in Weight (kg) 77 kg Body Mass Index 22.4 - NPO >8 hours - Lab Results Fish Bones: 03/26/18 04:10 03/26/18 04:10 Home Medications and Allergies Home Medications: Ambulatory Orders Medication Instructions Recorded Confirmed Lisinopril 10 mg PO DAILY 06/16/14 03/25/18 Sertraline HCl 100 mg PO DAILY 06/16/14 03/25/18 Metoprolol Succinate 50 mg PO DAILY 03/25/18 03/25/18 levETIRAcetam [Levetiracetam] 1,500 mg PO BID 03/25/18 03/25/18 Allergies/Adverse Reactions: Allergies Allergy/AdvReac Type Severity Reaction Status Date / Time ceftriaxone Allergy Itching Verified 03/26/18 08:01 morphine Allergy Hives Verified 01/05/15 18:30 Penicillins Allergy Hives Verified 01/05/15 18:30 Anes History & Medical History - Anesthetic History Anesthesia Complications: reports: No previous complications Family history of Anesthesia Complications: Denies Family history of Malignant Hyperthermia: Denies - Medical History Cardiovascular: reports: Hypertension, Coronary artery disease, Angina, [place] Pulmonary: reports: None Gastrointestinal: reports: None 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: Other (Born with one kidney) Neuro: reports: Head injury, Seizure disorder Musculoskeletal: reports: None Endocrine/Autoimmune: reports: None Blood Disorders: reports: None Skin: reports: Psoriasis Smoking Status: Current every day smoker Psychosocial: reports: Substance abuse, Alcohol, Amphetamine, Cannabis, Opioid Other Past Medical History: cellulitis and abscess of various locations - Surgical History General: Appendectomy Urologic: Kidney stents Exam General: Alert Dental: Loose/Frag, Poor dentition Mouth Opening: Greater than 4 Fingerbreadths Neck Mobility: Normal Mallampati classification: I Thyromental Distance: greater than 6 cm Respiratory: Lungs clear Cardiovascular: Regular rate, No murmurs Mental/Cognitive Status: Alert/Oriented X3 Cognitive Status: Within normal limits Plan Anesthesia Type: General Consent for Procedure(s) Verified and Reviewed: Yes Code Status: Attempt Resuscitation ASA classification: 3-Severe systemic disease Is this case an emergency?: No
[2018-03-26] MEDS ORDERED: LACTATED RINGERS 1,000 ML IV ONE (15:04)
[2018-03-26] MEDS ORDERED: ONDANSETRON 4 MG/2 ML VIAL IVP ONE (15:25)
[2018-03-26] MEDS ORDERED: fentaNYL 100 MCG/2 ML VIAL IVP ONE (15:25)
[2018-03-26] MEDS ORDERED: LIDOCAINE-MPF 2% 5 ML VIAL IM ONE (15:25)
[2018-03-26] MEDS ORDERED: PROPOFOL 200 MG/20 ML VIAL IVP ONE (15:25)
[2018-03-26] MEDS ORDERED: MIDAZOLAM 2 MG/2 ML VIAL IVP ONE (15:25)
[2018-03-26] MEDS ORDERED: GLYCOPYRROLATE 1 MG/5 ML VIAL IVP ONE (15:25)
--- NOTE | 2018-03-26 15:39 | OPERATIVE REPORT ---
Operative Report - General Admit Date: 03/24/18 Procedure Date: 03/26/18 Planned Procedure: I&D left upper arm abscess Pre-Op Diagnosis: left upper arm abscess and cellulitis Procedure Performed: I&D left upper arm abscess Post Op Diagnosis: cellulitis and abscess of left upper arm - Procedure Note Primary Surgeon: Melissa Matthews MD Anesthesia Provider: Jose Duval CRNA Anesthesia Technique: General LMA Pathology: wound cultures taken Estimated Blood Loss (mL): 2 Complications: NONE - Other Other Information/Narrative: After informed consent was obtained, the pt was placed in supine position with the left arm extended on an armboard. General LMA anesthesia was given and the left arm was prepped and draped in sterile fashion. A cruciate incision was made and the pocket of pus encountered. Cultures were taken. The pocket extended down to, but did not penetrate the fascial layer. There were no loculations encountered. The wound was copiously irrigated out with saline. The wound was then packed with 1/2 inch iodoform gauze packing. Sterile dressings were applied. The pt tolerated the procedure well and was sent to the PACU in stable condition.
[2018-03-26] MEDS: METOPROLOL 5 MG/5 ML VIAL IVP ONE ×2 (15:51→16:01)
[2018-03-26] MEDS: HYDROmorphone 1 MG/ML CARPUJECT ONE ×2 (15:56→16:03)
--- NOTE | 2018-03-26 21:44 | PROVIDER PROGRESS NOTE ---
Subjective - Prog Note Date Prog Note Date: 03/26/18 Prog Note Time: 12:00 - Subjective Pt reports feeling: No change Subjective: Gustabo complains about being so hungry that he would rather just leave, but his wound is so painful and admits to needing help. He denies any new symptoms such as shortness of breath, increased nausea, vomiting, diarrhea, rashes, or a new cough. Current Medications - Current Medications Current Medications: Active Medications Acetaminophen (Tylenol) 650 mg PO Q4HR PRN PRN Reason: Pain 1 to 4 Last Admin: 03/26/18 16:47 Dose: 650 mg Diphenhydramine HCl (Benadryl Inj) 25 mg IVP Q6H PRN PRN Reason: Allergy Symptoms Last Admin: 03/24/18 22:06 Dose: 25 mg Enoxaparin Sodium (Lovenox) 40 mg SUBQ DAILY [facility] Last Admin: 03/26/18 09:00 Dose: 40 mg Levofloxacin (Levaquin 500 Mg/100 Ml) 500 mg in 100 mls @ 100 mls/hr IV Q24H [facility] Last Infusion: 03/26/18 10:50 Dose: Infused Ketorolac Tromethamine (Toradol Inj (15mg)) 15 mg IVP Q6HR PRN PRN Reason: PAIN Stop: 03/30/18 03:50 Last Admin: 03/26/18 12:53 Dose: 15 mg Lactobacillus Rhamnosus (Culturelle) 1 cap PO DAILY [facility] Last Admin: 03/26/18 09:01 Dose: 1 cap Levetiracetam (Keppra) 1,500 mg PO BID [facility] Last Admin: 03/26/18 21:10 Dose: 1,500 mg Lisinopril (Zestril) 10 mg PO DAILY [facility] Lorazepam (Ativan Inj (Vial)) 1 mg IVP Q2H PRN PRN Reason: Anxiety Last Admin: 03/26/18 13:04 Dose: 1 mg Metoprolol Succinate (Toprol Xl) 50 mg PO DAILY [facility] Last Admin: 03/26/18 09:01 Dose: 50 mg Nicotine (Nicoderm) 1 patch TOP DAILY [facility] Last Admin: 03/26/18 09:03 Dose: 1 patch Ondansetron HCl (Zofran Inj) 4 mg IVP Q6HR PRN PRN Reason: Nausea / Vomiting Oxycodone HCl (Roxicodone) 5 mg PO Q4HR PRN PRN Reason: Pain 5 to 7 Last Admin: 03/26/18 16:47 Dose: 5 mg Polyethylene Glycol (Miralax) 17 gm PO DAILY [facility] Last Admin: 03/26/18 09:02 Dose: 17 gm Sertraline HCl (Zoloft) 100 mg PO DAILY [facility] Last Admin: 03/26/18 09:00 Dose: 100 mg Sodium Chloride (Normal Saline Flush 0.9%) 10 ml IVP PRN PRN PRN Reason: NEEDED PER PROVIDER ORDERS Last Admin: 03/26/18 13:05 Dose: 10 ml Sodium Chloride (Normal Saline Flush 0.9%) 10 ml IVP 0100,0900,1700 [facility] Last Admin: 03/26/18 16:44 Dose: 10 ml Temazepam (Restoril) 15 mg PO QPM PRN PRN Reason: Insomnia Lisinopril 10 mg PO DAILY 06/16/14 Sertraline HCl 100 mg PO DAILY 06/16/14 Metoprolol Succinate 50 mg PO DAILY 03/25/18 levETIRAcetam [Levetiracetam] 1,500 mg PO BID 03/25/18 Objective - Vital Signs/Intake & Output Reviewed Vital Signs: Yes Vital Signs: Vital Signs x48h Temp Pulse Resp BP BP Pulse Ox 03/26/18 16:51 96 18 153/108 H 100 03/26/18 16:34 100 151/114 H 03/26/18 16:20 36.3 C L 105 H 20 153/111 H 100 03/26/18 16:10 16 155/103 H 100 03/26/18 16:05 36.3 C L 14 156/108 H 100 03/26/18 16:00 14 161/116 H 100 03/26/18 15:55 14 158/109 H 100 03/26/18 15:50 13 161/113 H 100 03/26/18 15:45 14 159/110 H 100 03/26/18 15:40 36.4 C L 14 152/104 H 100 Intake & Output: Intake & Output 03/23/18 03/24/18 03/25/18 03/26/18 23:59 23:59 23:59 23:59 Intake Total 500 2020 100 Output Total 300 Balance 500 1720 100 - Objective General Appearance: positive: Alert, Moderate distress, Anxious (tearful at times when speaking of his current situation as being in the middle of a divorce.) Eyes Bilateral: positive: Normal inspection, PERRL Eyes: OU Other (redness to bilateral conjunctivae) ENT: positive: ENT inspection nml, Pharynx nml, No signs of dehydration Neck: positive: Nml inspection, Thyroid nml, No JVD, Trachea midline, Lymphadenopathy (R), Lymphadenopathy (L) Respiratory: positive: Chest non-tender, No respiratory distress, Breath sounds nml Cardiovascular: positive: Regular rate & rhythm, No gallop, Systolic murmur Peripheral Pulses: 2+ Radial (R), 2+ Radial (L), 2+ Dorsalis pedis (R), 2+ Dorsalis pedis (L) Abdomen: positive: Non-tender, No organomegaly, Nml bowel sounds, No distention Back: positive: Nml inspection Skin: positive: Color nml, No rash, Warm, Dry, Other (scattered lesions likely from meth use. LUE with a "boil" appearing lesion with surrounding cellulitis. Located in the bicep area.) Extremities: positive: Non-tender, Full ROM, Nml appearance, No pedal edema Neurologic/Psychiatric: positive: Oriented x3, CN's nml (2-12), Motor nml, Sensation nml, Depressed mood/affect Reflexes: Bicep (R): 4+, Bicep (L): 4+ - Lab Results Fish Bones: 03/26/18 04:10 03/26/18 04:10 Other Labs: Lab Results x24hrs 03/26/18 03/26/18 03/26/18 Range/Units 04:10 04:10 04:10 WBC (4.8-10.8) x10^3/uL RBC (4.70-6.10) 10^6/uL Hgb (14.0-18.0) g/dL Hct (42.0-52.0) % MCV (80.0-94.0) fL MCH (27.0-31.0) pg MCHC (32.0-36.0) g/dL RDW (12.0-15.0) % Plt Count (130-450) 10^3/uL MPV (7.4-11.4) fL Neut # (Auto) (1.5-6.6) 10^3/uL Lymph # (Auto) (1.5-3.5) 10^3/uL [place] # (Auto) (0.0-1.0) 10^3/uL Eos # (Auto) (0.0-0.7) 10^3/uL Baso # (Auto) (0.0-0.1) 10^3/uL Absolute Nucleated RBC x10^3/uL Nucleated RBC % /100WBC ESR 36 H (0-15) mm/Hr Sodium 137 (135-145) mmol/L Potassium 3.5 (3.5-5.0) mmol/L Chloride 101 (101-111) mmol/L Carbon Dioxide 27 (21-32) mmol/L Anion Gap 9.0 (6-13) BUN 12 (6-20) mg/dL Creatinine 0.8 (0.6-1.2) mg/dL Estimated GFR (MDRD) 110 (>89) Glucose 116 H (70-100) mg/dL Calcium 9.0 (8.5-10.3) mg/dL Total Bilirubin 0.3 (0.2-1.0) mg/dL AST 41 (10-42) IU/L ALT 38 (10-60) IU/L Alkaline Phosphatase 104 (42-121) IU/L C-Reactive Protein 5.5 H (0-1.0) mg/dL B-Natriuretic Peptide 133 H (5-100) pg/mL Total Protein 7.3 (6.7-8.2) g/dL Albumin 3.1 L (3.2-5.5) g/dL Globulin 4.2 (2.1-4.2) g/dL Albumin/Globulin Ratio 0.7 L (1.0-2.2) 03/26/18 Range/Units 04:10 WBC 9.3 (4.8-10.8) x10^3/uL RBC 4.13 L (4.70-6.10) 10^6/uL Hgb 14.1 (14.0-18.0) g/dL Hct 40.0 L (42.0-52.0) % MCV 96.8 H (80.0-94.0) fL MCH 34.0 H (27.0-31.0) pg MCHC 35.2 (32.0-36.0) g/dL RDW 12.8 (12.0-15.0) % Plt Count 158 (130-450) 10^3/uL MPV 9.2 (7.4-11.4) fL Neut # (Auto) 7.4 H (1.5-6.6) 10^3/uL Lymph # (Auto) 1.2 L (1.5-3.5) 10^3/uL [place] # (Auto) 0.7 (0.0-1.0) 10^3/uL Eos # (Auto) 0.1 (0.0-0.7) 10^3/uL Baso # (Auto) 0.0 (0.0-0.1) 10^3/uL Absolute Nucleated RBC 0.01 x10^3/uL Nucleated RBC % 0.1 /100WBC ESR (0-15) mm/Hr Sodium (135-145) mmol/L Potassium (3.5-5.0) mmol/L Chloride (101-111) mmol/L Carbon Dioxide (21-32) mmol/L Anion Gap (6-13) BUN (6-20) mg/dL Creatinine (0.6-1.2) mg/dL Estimated GFR (MDRD) (>89) Glucose (70-100) mg/dL Calcium (8.5-10.3) mg/dL Total Bilirubin (0.2-1.0) mg/dL AST (10-42) IU/L ALT (10-60) IU/L Alkaline Phosphatase (42-121) IU/L C-Reactive Protein (0-1.0) mg/dL B-Natriuretic Peptide (5-100) pg/mL Total Protein (6.7-8.2) g/dL Albumin (3.2-5.5) g/dL Globulin (2.1-4.2) g/dL Albumin/Globulin Ratio (1.0-2.2) ABX Reporting Has patient been on IV antibiotics over the past 48 hours?: Yes Assessment/Plan - Problem List (1) Left arm cellulitis Impression: The patient had an elevated WBC count upon admission at greater than 11, that is now normalized. Inflammatory markers are also elevated with a CRP 5.5 of and an ESR of 36. The patient's wound looks very painful, more swollen, and he will undergo an I & D as it will aide in overall healing. The wound is on the patient's LUE, outer bicep and it is unclear whether his story of "a spider bite " or his usual drug use was the cause. There are no other obvious track hidalgo to his AC or forearms. He states that he is right handed, so a self injection may match the location of this wound. Upon exam the wound appears encapsulated , and fluid filled. The surrounding skin remains quite tender with palpation, very hot and it has spontaneously started to have minimal drainage, so is now wrapped in a bandage. He was originally prescribed Rocephin, but developed an immediate allergy causing a full chest puritic rash, so this was quickly changed to Levofloxacin and this continues. This may be changed after the I&D cultures. I will add a probiotic. Imaging was done including a humerus x-ray and a LUE CT with contrast as per general surgery request to ensure there was no bone, tendon or muscle involvement. The patient was taken to the OR with Dr. Cortez and he had an uncomplicated procedure, with an uncomplicated post-op course so far. The wound was drained, cultures sent and remains packed. Plan: Continue antibiotics, await culture results, monitor for bleeding or excess drainage, and consider wound care consult if this proves to be something the patient will have to see the [facility] wound clinic for out patient. (2) Homelessness Impression: The patient apparently lives in a tent in [place] as he is going through a divorce. He may be non-compliant with out patient medical management due to this situation. Plan: Social work has been seeing him and will provide community resources. (3) Methamphetamine abuse Impression: The patient has a history of this and was found positive for this substance upon admission. He is found to have multiple scabbed areas and states that since he has been staying in the tent he has not been able to shower and this causes extra itching. There are no areas which appear to be open. Plan: Monitor for suspicious visitors. Keep all syringes out of the waste basket in the event he keeps these for future use. Offer social service support. (4) Hypokalemia Impression: This condition may have been due to lack of PO intake leading up to the admission. He received a LR bolus, and has been eating meals, with the exception of today as he is NPO for his upcoming I & D. Labs today show a resolution of hypokalemia with a potassium of 3.5. Plan: Daily labs and monitor for diarrhea and or poor PO intake. We will give supplements as needed. (5) Anxiety Impression: The patient told nursing that he is considering leaving against medical advise as his anxiety is nearly too much to handle. He is focused on being hungry and his current home life, which is that he is homeless and lives in a tent. He is going though a divorce. He is agreeable to under go the I & D, but wishes to leave in the morning. Plan: Give Lorazepam IV pre-procedure, and then only daily in PO form to encourage compliance.
[2018-03-27 05:17] LABS: ALBUMIN 2.9 g/dL (3.2-5.5); ALBUMIN/GLOBULIN RATIO 0.7 (1.0-2.2); BILIRUBIN,TOTAL 0.5 mg/dL (0.2-1.0); CALCIUM 8.8 mg/dL (8.5-10.3); CREATININE 0.9 mg/dL (0.6-1.2); CRP - C-REACTIVE PROTEIN 1.6 mg/dL (0-1.0); TOTAL PROTEIN 6.9 g/dL (6.7-8.2)
[2018-03-27 05:22] LABS: BASOPHILS % (AUTO) 0.3 %; EOSINOPHILS # (AUTO) 0.1 10^3/uL (0.0-0.7); HGB - HEMOGLOBIN 14.6 g/dL (14.0-18.0); LYMPHOCYTES # (AUTO) 1.4 10^3/uL (1.5-3.5); LYMPHOCYTES % (AUTO) 22.3 %; MEAN CORPUSCULAR HEMOGLOBIN 33.6 pg (27.0-31.0); MEAN CORPUSCULAR HGB CONC 34.7 g/dL (32.0-36.0); MEAN CORPUSCULAR VOLUME 96.9 fL (80.0-94.0); MEAN PLATELET VOLUME 8.8 fL (7.4-11.4); MONOCYTES # (AUTO) 0.5 10^3/uL (0.0-1.0); MONOCYTES % (AUTO) 7.3 %; NEUTROPHILS # (AUTO) 4.3 10^3/uL (1.5-6.6); NEUTROPHILS % (AUTO) 69.1 %; PLT - PLATELET COUNT 187 10^3/uL (130-450); RED BLOOD COUNT 4.36 10^6/uL (4.70-6.10); RED CELL DISTRIBUTION WIDTH 12.9 % (12.0-15.0); WHITE BLOOD COUNT 6.2 x10^3/uL (4.8-10.8)
--- NOTE | 2018-03-27 07:05 | Discharge Plan ---
Discharge Plan Disposition: Home, Self Care Condition: Stable Prescriptions: Clindamycin HCl [Clindamycin 300MG CAP] 300 mg PO QID #28 capsule Lactobacillus Rhamnosus GG [Culturelle] 1 cap PO DAILY #30 capsule oxyCODONE [Roxicodone] 5 mg PO Q4-6H #30 tablet Diet: Regular Activity Restrictions: keep wound clean and dry Shower Restrictions: Yes (keep wound dry until closed. ) Additional Instructions or Follow Up instructions: You were admitted to the hospital because of an abcess and skin infection in the left arm. You needed Intravenous antibiotics for treatment as well as incision and debridement of the abcess. You will need to keep the wound in your arm clean and dry. But take a shower daily and wash the wound in the shower. Once out dry it carefully. Pack the wound with dry kerlex bandange then cover. You will go home on 7 days of oral antibiotics. Even if your infection has gone , complete the therapy. See Dr. Renteria or a surgeon in her office in 7-10 days for a wound check. Please also establish yourself with a primary care provider in [place]. [employer] will give you a list with their phone numbers. No Smoking: If you smoke, Please STOP! Call for help. Follow-up with: Melissa Renteria MD [Provider Admit Priv/Credential] -
[2018-03-27] MEDS: oxyCODONE 5 MG TABLET PO PRN ×2 (07:31→09:19)
--- NOTE | 2018-03-27 07:50 | DISCHARGE SUMMARY ---
Discharge Summary Admit Date: 03/24/18 Discharge Date: 03/27/18 Discharging Provider: Janet Greco MD Primary Care Provider: None. He agrees to establish himself with one. Code Status: Attempt Resuscitation Condition at Discharge: Stable Discharge Disposition: 01 Home, Self Care - DIAGNOSES Discharge Diagnoses with Status of Each Condition: (1) Left arm cellulitis and biceps abcess (2) Homelessness (3) Methamphetamine abuse (4) Hypokalemia (5) Anxiety (6 Hypertension - HPI History of Present Illness: He is living in a tent in his future ex-in-laws back yard, has a history of metamphetamine abuse, and history of MRSA cellulitis that presents with new left arm redness and boil over the biceps/deltoid region with the redness spreading to his left anterior chest wall. In the ER, he had SIRS. Given rocephin with subsequent red rash on his body. Changed to levaquin. He has been noncompliant with his blood pressure drugs in that he ran out of them and [employer] has stated he can no longer return to them as customer. He does not have a PCP at this time. - CONSULTS | PROCEDURES Consultations: Melissa Cortez MD, General Surgery Procedures: 1. I&D 03/25/2018 2. Wound cultures pending 3. CT of left upper extremity FINDINGS: Bones: No fracture or bone lesion. Acromion type 1. Joints: The glenohumeral and acromioclavicular joints are normal. No large effusions. Musculature: Normal. No fatty atrophy. Other: Subcutaneous edema is seen in the left upper chest wall and in the left upper arm. There is a subcutaneous abscess anterior to the distal deltoid musculature. It measures 3.1 x 1.6 x 2.2 cm (series 4, image 190). IMPRESSION: Cellulitis of the left upper chest wall and left upper arm. 3.1 cm subcutaneous abscess anterior to the distal deltoid musculature. 4. Left humerus plain film IMPRESSION: Normal humerus with soft tissue swelling throughout the visualized upper arm. Query sign/symptoms of cellulitis or DVT. - HOSPITAL COURSE Hospital Course: (1) Left arm cellulitis and left biceps skin abcess Impression: The patient had an elevated WBC count upon admission at greater than 11, that is now normalized. Inflammatory markers are also elevated with a CRP 5.5 of and an ESR of 36. The redness of cellulitis with a small boil was on on the patient's LUE, outer bicep and it is unclear whether his story of "a spider bite " or his usual drug use was the cause. There are no other obvious track hidalgo to his AC or forearms. He states that he is right handed, so a self injection may match the location of this wound. He was originally prescribed Rocephin, but developed an immediate allergy causing a full chest puritic rash, so this was quickly changed to Levofloxacin . Suspecting MRSA, but cultures not back yet , he will be sent home on Clindamycin and a probiotic. At his followup visit, cultures should be reviewed. Imaging was done including a humerus x-ray and a LUE CT with contrast as per general surgery request to ensure there was no bone, tendon or muscle involvement.The patient was taken to the OR with Dr. Cortez and he had an uncomplicated I&D. He is to continue to shower daily with daily washing of his wound with soap and water. Dry then pack the wound with clean kerlex daily. Keep it clean and dry during the day. Dr. Cortez would like to see him in the office in the next 7-10 days. (2) Homelessness Impression: The patient apparently lives in a tent in [place] (on the property of his future ex in laws as he is going through a divorce). He may be non-compliant with out patient medical management due to this situation. Social work has been seeing him and will provide community resources. We have asked him to establish himself with a primary care provider. (3) Methamphetamine abuse Impression: The patient has a history of this and was found positive for this substance upon admission. He is found to have multiple scabbed areas and states that since he has been staying in the tent he has not been able to shower and this causes extra itching. There are no areas which appear to be open. (4) Hypokalemia Impression: This condition may have been due to lack of PO intake leading up to the admission. He received a LR bolus, and has been eating meals. Labs show a resolution of hypokalemia with a potassium of 3.5. (5) Anxiety Impression: The patient told nursing on 03/26 that he is considering leaving against medical advise as his anxiety is nearly too much to handle. He is focused on being hungry and his current home life, which is that he is homeless and lives in a tent. He is going though a divorce. He was agreeable to under go the I & D, but wanted to leave the next morning, day of discharge. (6) Hypertension His home meds were adjusted. His lisinopril was doubled during his stay because he had not been taking them. At discharge he is to resume his ususal 10 mg daily. Again, asked to establish himself with a primary care provider for blood pressure followup. His systolic was 153-167 at discharge. - ALLERGIES Allergies/Adverse Reactions: Allergies Allergy/AdvReac Type Severity Reaction Status Date / Time ceftriaxone Allergy Itching Verified 03/26/18 08:01 morphine Allergy Hives Verified 01/05/15 18:30 Penicillins Allergy Hives Verified 01/05/15 18:30 - MEDICATIONS Home Medications: Ambulatory Orders Medication Instructions Recorded Confirmed Lisinopril 10 mg PO DAILY 06/16/14 03/25/18 Sertraline HCl 100 mg PO DAILY 06/16/14 03/25/18 Metoprolol Succinate 50 mg PO DAILY 03/25/18 03/25/18 levETIRAcetam [Levetiracetam] 1,500 mg PO BID 03/25/18 03/25/18 Clindamycin HCl [Clindamycin 300MG 300 mg PO QID #28 capsule 03/27/18 CAP] Lactobacillus Rhamnosus GG 1 cap PO DAILY #30 capsule 03/27/18 [Culturelle] oxyCODONE [Roxicodone] 5 mg PO Q4-6H #30 tablet 03/27/18 - PHYSICAL EXAM AT DISCHARGE General Appearance: positive: No acute distress, Alert Eyes Bilateral: positive: PERRL ENT: positive: Other (Gingivitis, poor dentition with dental carries and some loss of teeth.) Neck: positive: No JVD, Lymphadenopathy (R) (shotty), Lymphadenopathy (L) ( shotty) Respiratory: positive: Chest non-tender. negative: Wheezes, Rales, Rhonchi Cardiovascular: positive: Regular rate & rhythm. negative: Systolic murmur, Gallop/S4, Friction rub Peripheral Pulses: positive: 2+ Abdomen: positive: Non-tender, No organomegaly, Nml bowel sounds, No distention Skin: positive: Warm, Dry, Other (multiple tatoos) Extremities: positive: Non-tender, Other (the left lateral biceps near the deltoid has a wound. Redness and swelling improved from admisson but still present. No purulence. no fluctuence. ) Neurologic/Psychiatric: positive: Oriented x3, CN's nml (2-12), Motor nml, Sensation nml - LABS Result Diagrams: 03/27/18 04:25 03/27/18 04:25
[2018-03-27 07:58] VITALS: BP 166/92
[2018-03-27] MEDS ORDERED: LISINOPRIL 5 MG TABLET PO SCH (09:00)
[2018-03-27] MEDS: ENOXAPARIN 40 MG/0.4 ML SYRINGE SUBQ SCH (09:14)
[2018-03-27] MEDS: METOPROLOL SUCCINATE 50 MG TABLET PO SCH (09:15)
[2018-03-27] MEDS: SERTRALINE 50 MG TABLET PO SCH (09:15)
[2018-03-27] MEDS: LACTOBACILLUS RHAMNOSUS GG CAPSULE PO SCH (09:15)
[2018-03-27] MEDS: levETIRAcetam 250 MG TABLET PO SCH (09:15)
[2018-03-27] MEDS: NICOTINE 14 MG PATCH TOP SCH (09:15)
[2018-03-27] MEDS: POLYETHYLENE GLYCOL 3350 17 GM PACKET PO SCH (09:15)
[2018-03-27] MEDS: SODIUM CHLORIDE FLUSH 0.9% 10 ML SYRINGE IVP SCH (09:15)
== END 2018-03-27 09:10 | disposition home or self-care (01) | DRG 908 ==
LOC: ED 16:04 → ICU 20:17
PROVIDERS: ADMIT Internal Medicine; ATTEND Specialist
PROC: 0J9F0ZZ Drainage of Left Upper Arm Subcutaneous Tissue and Fascia, Open Approach (ICD-10-PCS; principal; 2018-03-26 13:00)
DX: T63.301A Toxic effect of unspecified spider venom, accidental (unintentional), initial encounter (principal); L03.114 Cellulitis of left upper limb; I20.9 Angina pectoris, unspecified; L03.313 Cellulitis of chest wall; L02.414 Cutaneous abscess of left upper limb; F17.200 Nicotine dependence, unspecified, uncomplicated; Z79.899 Other long term (current) drug therapy; Z87.898 Personal history of other specified conditions; F19.10 Other psychoactive substance abuse, uncomplicated; I10 Essential (primary) hypertension; L27.1 Localized skin eruption due to drugs and medicaments taken internally; T36.1X5A Adverse effect of cephalosporins and other beta-lactam antibiotics, initial encounter; Y92.239 Unspecified place in hospital as the place of occurrence of the external cause; Z63.5 Disruption of family by separation and divorce; E87.6 Hypokalemia; T46.4X6A Underdosing of angiotensin-converting-enzyme inhibitors, initial encounter; F41.0 Panic disorder [episodic paroxysmal anxiety]; I25.119 Atherosclerotic heart disease of native coronary artery with unspecified angina pectoris; L40.9 Psoriasis, unspecified; F32.9 Major depressive disorder, single episode, unspecified; F43.10 Post-traumatic stress disorder, unspecified; G40.909 Epilepsy, unspecified, not intractable, without status epilepticus; I25.2 Old myocardial infarction; Z91.138 Patient's unintentional underdosing of medication regimen for other reason; Z88.0 Allergy status to penicillin; Z86.14 Personal history of Methicillin resistant Staphylococcus aureus infection; Z59.0 Homelessness; Z86.718 Personal history of other venous thrombosis and embolism; Z72.0 Tobacco use
CPT/HCPCS: 36415; 80053; 80306; 83605; 83690; 83880; 85025; 85651; 86140; 87040; 87070; 87205; 87640; 96365; 96375; 99283; 99284

== ENCOUNTER 2018-06-18 13:54 | Emergency (ER) | payer OTHER, MEDICAID ==
[2018-06-18 14:06] VITALS: BP 152/88
[2018-06-18] MEDS ORDERED: LORazepam 0.5 MG TABLET PO STA (14:16)
[2018-06-18] MEDS ORDERED: DOXYCYCLINE 100 MG TABLET PO STA (14:16)
[2018-06-18] MEDS ORDERED: NAPROXEN 250 MG TABLET PO STA (14:16)
[2018-06-18] MEDS ORDERED: DEXAMETHASONE 10 MG/ML VIAL PO STA (14:16)
--- NOTE | 2018-06-18 15:01 | XRAY Report ---
Reason: knee injury and pain with walking Procedure Date: 06/18/2018 Accession Number: [id number] / [id number] Procedure: XR - Knee 3 View LT CPT Code: FULL RESULT: EXAM: LEFT KNEE RADIOGRAPHY EXAM DATE: 06/18/2018 02:27 PM. CLINICAL HISTORY: Knee injury and pain with walking. COMPARISON: XR KNEE 4 OR MORE VIEWS 09/05/2012 5:53 PM. TECHNIQUE: 3 views. FINDINGS: Bones: Normal. No fractures or bone lesions. Joints: Normal. No effusion. No subluxations. Soft Tissues: Normal. No soft tissue swelling. IMPRESSION: No acute fracture or dislocation. RADIA
--- NOTE | 2018-06-18 15:03 | ED Physician Documentation ---
PD HPI SKIN - Stated complaint Stated Complaint: MED CLEAR - Chief complaint Chief Complaint: General - History obtained from History obtained from: Patient - History of Present Illness Timing - onset: How many days ago (had skin reaction that was itchy and raised, then the sores unroofed and left with small partial thickness skin sores. Also had knee contusion from banging it, with bruising and hurting for walking. He is arrested and here for med clearance for intermediate.) Timing - details: Gradual onset Review of Systems Constitutional: reports: Myalgias. denies: Fever, Chills Eyes: denies: Loss of vision, Photophobia GI: denies: Abdominal Pain, Nausea, Vomiting PD PAST MEDICAL HISTORY - Past Medical History Cardiovascular: Hypertension, Coronary artery disease, Angina, [place] Respiratory: None Neuro: Head injury, Seizure disorder Endocrine/Autoimmune: None GI: None : Other HEENT: None Psych: Panic attacks, Post traumatic stress disorder Musculoskeletal: None Derm: Psoriasis - Past Surgical History Past Surgical History: Yes General: Appendectomy - Present Medications Home Medications: Ambulatory Orders Medication Instructions Recorded Confirmed Lisinopril 10 mg PO DAILY 06/16/14 03/25/18 Sertraline HCl 100 mg PO DAILY 06/16/14 03/25/18 Metoprolol Succinate 50 mg PO DAILY 03/25/18 03/25/18 levETIRAcetam [Levetiracetam] 1,500 mg PO BID 03/25/18 03/25/18 Chlorhexidine Gluconate [Hibiclens] 15 ml TP DAILY #236 ml 06/18/18 Dexamethasone [Decadron] 4 mg PO DAILY #5 tablet 06/18/18 Doxycycline Hyclate 100 mg PO BID #20 capsule 06/18/18 LORazepam [Ativan] 1 mg PO Q6H PRN #15 tablet 06/18/18 Naproxen 375 mg PO BID #20 tablet 06/18/18 - Allergies Allergies/Adverse Reactions: Allergies Allergy/AdvReac Type Severity Reaction Status Date / Time ceftriaxone Allergy Itching Verified 06/18/18 14:06 morphine Allergy Hives Verified 06/18/18 14:06 Penicillins Allergy Hives Verified 06/18/18 14:06 - Social History Does the pt smoke?: Yes Smoking Status: Current every day smoker Does the pt drink ETOH?: Yes Does the pt have substance abuse?: Yes Substance Use and Type: Marijuana, Meth, Heroin - Immunizations Immunizations are current?: No Immunizations: TDAP >10years/unknown - POLST Patient has POLST: No PD ED PE NORMAL - Vitals Vital signs reviewed: Yes - General General: Alert and oriented X 3, No acute distress, Well developed/nourished - HEENT HEENT: Moist mucous membranes, Pharynx benign - Neck Neck: No bony TTP - Cardiac Cardiac: RRR, No murmur - Respiratory Respiratory: Clear bilaterally - Abdomen Abdomen: Soft, Non tender - Back Back: No CVA TTP - Derm Derm: Normal color, Other (there are multiple discrete lesions partial thickness, that just get to deeper skin layer. No active purlulence) - Extremities Extremities: Other (left knee medially with some bruising and swelling. no joint effusion) - Neuro Neuro: Alert and oriented X 3 Eye Opening: Spontaneous Motor: Obeys Commands Verbal: Oriented GCS Score: 15 Results - Vitals Vitals: Vital Signs - 24 hr 06/18/18 14:03 Temperature 36.8 C Heart Rate 81 Respiratory 18 Rate Blood Pressure 152/88 H O2 Saturation 100 Oxygen O2 Source Room air PD MEDICAL DECISION MAKING - ED course Complexity details: considered differential (knee contusion with some ransfuse), d/w patient Departure - Departure Disposition: 01 Home, Self Care Clinical Impression: Skin lesions, generalized, Drug abuse Knee contusion Qualifiers: Encounter type: initial encounter Laterality: left Qualified Code(s): S80.02XA - Contusion of left knee, initial encounter Upper respiratory infection Qualifiers: URI type: unspecified URI Qualified Code(s): J06.9 - Acute upper respiratory infection, unspecified Condition: Stable Record reviewed to determine appropriate education?: Yes Prescriptions: Chlorhexidine Gluconate [Hibiclens] 15 ml TP DAILY #236 ml Dexamethasone [Decadron] 4 mg PO DAILY #5 tablet Doxycycline Hyclate 100 mg PO BID #20 capsule LORazepam [Ativan] 1 mg PO Q6H PRN #15 tablet PRN Reason: Anxiety Naproxen 375 mg PO BID #20 tablet Comments: Regarding the skin sores, presume it was from an allergic reaction given the multiplicity of it. We want to make sure they do not get secondarily infected and so use chlorhexidine body wash as part of your daily showering for the next week to 10 days. Use doxycycline antibiotic twice daily for a week. Regarding your cough and chest cold, the Decadron and doxycycline will be used to treat that as well. For the knee injury.; Your x-ray appears normal so no fractures. There is a bruise on the inside of it. It appears to likely have a contusion to the area and it should improve with light activity and some naproxen twice daily for a week. Regarding your drug abuse; you likely will have some element of withdrawal at so I prescribed Ativan 1 mg every 6 hours if needed for withdrawal symptoms. Drink lots of fluids. Discharge Date/Time: 06/18/18 15:41
== END 2018-06-18 15:41 | disposition home or self-care (01) ==
LOC: ED 13:54
DX: Z02.89 Encounter for other administrative examinations (principal); J06.9 Acute upper respiratory infection, unspecified; L98.9 Disorder of the skin and subcutaneous tissue, unspecified; S80.02XA Contusion of left knee, initial encounter; F12.10 Cannabis abuse, uncomplicated; F11.10 Opioid abuse, uncomplicated; F15.10 Other stimulant abuse, uncomplicated; X58.XXXA Exposure to other specified factors, initial encounter; F17.200 Nicotine dependence, unspecified, uncomplicated; I10 Essential (primary) hypertension
CPT/HCPCS: 73562; 99283; A9270

== ENCOUNTER 2018-10-07 03:01 | Emergency (ER) | payer MEDICARE, MEDICAID ==
--- NOTE | 2018-10-07 03:53 | ED Physician Documentation ---
History of Present Illness - Stated complaint Stated Complaint: BODY SORES - Chief complaint Chief Complaint: General - History obtained from History obtained from: Patient - History of Present Illness Timing: How many days ago (2-3) Improved by: nothing Worsened by: palpation - Additonal information Additional information: c/o diffuse skin lesions as a result of picking behavior; he uses heroin and methamphetamine. he is worried that some lesions have become infected. he is also worried about the extent of this behavior and his inability to stop picking despite having not used methamphetamines for 2-3 days Review of Systems Constitutional: reports: Reviewed and negative Skin: reports: Lesions PD PAST MEDICAL HISTORY - Past Medical History Past Medical History: Yes Cardiovascular: Hypertension, Coronary artery disease, Angina, [place] Respiratory: None Neuro: Head injury, Seizure disorder Endocrine/Autoimmune: None GI: None : Other HEENT: None Psych: Anxiety, Panic attacks, Post traumatic stress disorder Musculoskeletal: None Derm: Psoriasis - Past Surgical History Past Surgical History: Yes General: Appendectomy - Present Medications Home Medications: Ambulatory Orders Medication Instructions Recorded Confirmed Lisinopril 10 mg PO DAILY 06/16/14 03/25/18 Sertraline HCl 100 mg PO DAILY 06/16/14 03/25/18 Metoprolol Succinate 50 mg PO DAILY 03/25/18 03/25/18 levETIRAcetam [Levetiracetam] 1,500 mg PO BID 03/25/18 03/25/18 Chlorhexidine Gluconate [Hibiclens] 15 ml TP DAILY #236 ml 06/18/18 Dexamethasone [Decadron] 4 mg PO DAILY #5 tablet 06/18/18 Doxycycline Hyclate 100 mg PO BID #20 capsule 06/18/18 LORazepam [Ativan] 1 mg PO Q6H PRN #15 tablet 06/18/18 Naproxen 375 mg PO BID #20 tablet 06/18/18 Clindamycin HCl [Clindamycin 300MG 300 mg PO Q6H #28 capsule 10/07/18 CAP] LORazepam [Lorazepam] 0.5 - 1 mg PO BID PRN #10 tablet 10/07/18 hydrOXYzine pamoate [Hydroxyzine 25 mg PO Q6HR PRN #20 capsule 10/07/18 Pamoate] - Allergies Allergies/Adverse Reactions: Allergies Allergy/AdvReac Type Severity Reaction Status Date / Time ceftriaxone Allergy Itching Verified 10/07/18 03:20 morphine Allergy Hives Verified 10/07/18 03:20 Penicillins Allergy Hives Verified 10/07/18 03:20 - Social History Does the pt smoke?: Yes Smoking Status: Current every day smoker Does the pt drink ETOH?: No Does the pt have substance abuse?: Yes Substance Use and Type: Meth, Heroin - Immunizations Immunizations are current?: No Immunizations: TDAP >10years/unknown, Other immun not current - POLST Patient has POLST: No PD ED PE NORMAL - Vitals Vital signs reviewed: Yes - General General: Alert and oriented X 3, No acute distress, Well developed/nourished PD ED PE EXPANDED - Derm Derm: Pick hidalgo (extensive number of discrete pick lesions on face, neck, chest, and bilateral upper extremities. the deepest of these is on dorsum of right hand and is into subcutaneous fat. there is surrounding erythema and induration) Results - Vitals Vitals: Oxygen O2 Source Room air PD MEDICAL DECISION MAKING - ED course Complexity details: considered differential, d/w patient Departure - Departure Disposition: 01 Home, Self Care Clinical Impression: Methamphetamine abuse, Skin lesions, generalized, Cellulitis Condition: Good Instructions: ED Infec Skin Cellulitis, ED Drug Abuse General Follow-Up: [facility] [Provider Group] [facility] [Provider Group] Prescriptions: hydrOXYzine pamoate [Hydroxyzine Pamoate] 25 mg PO Q6HR PRN #20 capsule PRN Reason: Anxiety Clindamycin HCl [Clindamycin 300MG CAP] 300 mg PO Q6H #28 capsule LORazepam [Lorazepam] 0.5 - 1 mg PO BID PRN #10 tablet PRN Reason: Anxiety Discharge Date/Time: 10/07/18 04:47
[2018-10-07] MEDS ORDERED: CLINDAMYCIN 150 MG CAPSULE PO STA (04:23)
[2018-10-07] MEDS ORDERED: LORazepam 1 MG TABLET PO STA (04:23)
[2018-10-07] MEDS ORDERED: hydrOXYzine PAMOATE 25 MG CAPSULE PO STA (04:24)
[2018-10-07 04:43] VITALS: BP 138/84
== END 2018-10-07 04:47 | disposition home or self-care (01) ==
LOC: ED 03:01
DX: L03.90 Cellulitis, unspecified (principal); L98.8 Other specified disorders of the skin and subcutaneous tissue; F63.89 Other impulse disorders; F15.10 Other stimulant abuse, uncomplicated; F11.10 Opioid abuse, uncomplicated; I10 Essential (primary) hypertension; F17.200 Nicotine dependence, unspecified, uncomplicated
CPT/HCPCS: 99283; A9270; J8499

== ENCOUNTER 2019-04-07 11:21 | Emergency (ER) | payer MEDICARE, MEDICAID ==
[2019-04-07] MEDS ORDERED: BUFFERED LIDOCAINE 10 ML SYRINGE SUBQ STA (12:37)
[2019-04-07] MEDS ORDERED: LORazepam 2 MG/ML VIAL IM STA (12:37)
[2019-04-07] MEDS ORDERED: SULFAMETH/TRIMETH DS 800/160 MG TABLET PO STA (12:37)
[2019-04-07] MEDS ORDERED: KETOROLAC 60 MG/2 ML VIAL IM STA (12:37)
--- NOTE | 2019-04-07 12:38 | ED Physician Documentation ---
PD HPI SKIN - Stated complaint Stated Complaint: SORES ON ARM - Chief complaint Chief Complaint: Wound - History obtained from History obtained from: Patient - History of Present Illness Timing - onset: Other (38-year-old gentleman with history of MRSA and IV drug abuse. He has been injecting drugs and has some abscesses that are painful over the last few days, 2 in the right antecubital fossa, one on the dorsum of the right hand. No fevers.) Review of Systems Constitutional: denies: Fever, Chills Cardiac: denies: Chest pain / pressure, Palpitations Respiratory: denies: Dyspnea PD PAST MEDICAL HISTORY - Past Medical History Cardiovascular: Hypertension, Coronary artery disease, Angina, [place] Respiratory: None Neuro: Head injury, Seizure disorder Endocrine/Autoimmune: None GI: None : Other HEENT: None Psych: Anxiety, Panic attacks, Post traumatic stress disorder Musculoskeletal: None Derm: Psoriasis - Past Surgical History Past Surgical History: Yes General: Appendectomy - Present Medications Home Medications: Ambulatory Orders Medication Instructions Recorded Confirmed Lisinopril 10 mg PO DAILY 06/16/14 03/25/18 Sertraline HCl 100 mg PO DAILY 06/16/14 03/25/18 Metoprolol Succinate 50 mg PO DAILY 03/25/18 03/25/18 levETIRAcetam [Levetiracetam] 1,500 mg PO BID 03/25/18 03/25/18 Chlorhexidine Gluconate [Hibiclens] 15 ml TP DAILY #236 ml 06/18/18 Doxycycline Hyclate 100 mg PO BID #20 capsule 06/18/18 LORazepam [Ativan] 1 mg PO Q6H PRN #15 tablet 06/18/18 Naproxen 375 mg PO BID #20 tablet 06/18/18 dexAMETHasone [Decadron] 4 mg PO DAILY #5 tablet 06/18/18 Clindamycin HCl [Clindamycin 300MG 300 mg PO Q6H #28 capsule 10/07/18 CAP] LORazepam [Lorazepam] 0.5 - 1 mg PO BID PRN #10 tablet 10/07/18 hydrOXYzine pamoate [Hydroxyzine 25 mg PO Q6HR PRN #20 capsule 10/07/18 Pamoate] Oxycodone HCl/Acetaminophen 1 - 2 each PO Q6H PRN #7 tablet 04/07/19 [Percocet 5-325 mg Tablet] Sulfamethoxazole/Trimethoprim 1 each PO BID #14 tablet 04/07/19 [Sulfamethoxazole-Tmp Ds Tablet] - Allergies Allergies/Adverse Reactions: Allergies Allergy/AdvReac Type Severity Reaction Status Date / Time ceftriaxone Allergy Itching Verified 10/07/18 03:20 morphine Allergy Hives Verified 10/07/18 03:20 Penicillins Allergy Hives Verified 10/07/18 03:20 - Social History Does the pt smoke?: Yes Smoking Status: Current every day smoker Does the pt drink ETOH?: No Does the pt have substance abuse?: Yes - Immunizations Immunizations are current?: No Immunizations: TDAP >10years/unknown, Other immun not current - POLST Patient has POLST: No PD ED PE NORMAL - Vitals Vital signs reviewed: Yes - General General: Alert and oriented X 3, No acute distress, Other (He is somewhat sleep y) - Derm Derm: Other (To marble sized abscess is one on each side of the anterior right antecubital fossa. There is an indurated area that not yet abscessed on the dorsum of the left hand.) - Neuro Neuro: Alert and oriented X 3, Normal speech Results - Vitals Vitals: Vital Signs - 24 hr 04/07/19 11:42 Temperature 37 C Heart Rate 95 Respiratory 16 Rate Blood Pressure 158/96 H O2 Saturation 100 Oxygen O2 Source Room air PD MEDICAL DECISION MAKING - ED course ED course: 2 abscesses in the right antecubital fossa were he was placed on Bactrim. A culture was obtained. He declined to talk to the nephrology social worker about IV drug use. He has resources and plans to go to detox. Departure - Departure Disposition: 01 Home, Self Care Clinical Impression: Drug abuse, Abscess of right arm Condition: Good Record reviewed to determine appropriate education?: Yes Instructions: ED Narcotic Abuse, ED Abscess IandD Prescriptions: Oxycodone HCl/Acetaminophen [Percocet 5-325 mg Tablet] 1 - 2 each PO Q6H PRN #7 tablet PRN Reason: pain Sulfamethoxazole/Trimethoprim [Sulfamethoxazole-Tmp Ds Tablet] 1 each PO BID #14 tablet Comments: We are performing a wound culture, the results should be done in 48-72 hours. If antibiotic change is necessary we will call you. Return if worse in the meantime, especially if you develop increased pain, fevers, cannot keep down the medication. Otherwise follow-up with your physician in approximately 2-3 days. Your blood pressure was elevated today on check into the emergency department. This does not mean that you have hypertension, it is a common phenomenon to come to the emergency department and have elevated blood pressure. I recommend that you see your primary care physician within the week to have it rechecked when you are feeling better. Forms: Activity restrictions
[2019-04-07] MEDS ORDERED: oxyCODONE 5 MG TABLET PO STA (13:12)
[2019-04-07 13:20] VITALS: BP 148/92
== END 2019-04-07 13:19 | disposition home or self-care (01) ==
LOC: ED 11:21
DX: L02.413 Cutaneous abscess of right upper limb (principal); F19.10 Other psychoactive substance abuse, uncomplicated; Z86.14 Personal history of Methicillin resistant Staphylococcus aureus infection; I10 Essential (primary) hypertension; F17.200 Nicotine dependence, unspecified, uncomplicated
CPT/HCPCS: 87070; 87181; 87205; 96372; 99283; A9270; J2060

== ENCOUNTER 2020-03-16 09:30 | Outpatient (CLI) | payer MEDICARE, MEDICAID ==
[2020-03-16 11:45] LABS: BASOPHILS % (AUTO) 0.3 %; EOSINOPHILS # (AUTO) 0.2 10^3/uL (0.0-0.7); EOSINOPHILS % (AUTO) 2.3 %; HGB - HEMOGLOBIN 13.5 g/dL (14.0-18.0); LYMPHOCYTES # (AUTO) 1.6 10^3/uL (1.5-3.5); LYMPHOCYTES % (AUTO) 20.2 %; MEAN CORPUSCULAR HEMOGLOBIN 30.3 pg (27.0-31.0); MEAN CORPUSCULAR HGB CONC 33.8 g/dL (32.0-36.0); MEAN CORPUSCULAR VOLUME 89.9 fL (80.0-94.0); MONOCYTES # (AUTO) 0.7 10^3/uL (0.0-1.0); MONOCYTES % (AUTO) 8.7 %; NEUTROPHILS # (AUTO) 5.4 10^3/uL (1.5-6.6); PLT - PLATELET COUNT 194 10^3/uL (130-450); RED BLOOD COUNT 4.45 10^6/uL (4.70-6.10); RED CELL DISTRIBUTION WIDTH 12.3 % (12.0-15.0); WHITE BLOOD COUNT 7.9 x10^3/uL (4.8-10.8)
[2020-03-16 12:00] LABS: ALBUMIN 3.6 g/dL (3.2-5.5); ALBUMIN/GLOBULIN RATIO 0.8 (1.0-2.2); BILIRUBIN,TOTAL 0.4 mg/dL (0.2-1.0); CALCIUM 9.1 mg/dL (8.5-10.3); TOTAL PROTEIN 8.1 g/dL (6.7-8.2)
[2020-03-17 13:09] LABS: HEPATITIS C ANTIBODY REACTIVE (NON-REACTIVE)
[2020-03-20 19:51] LABS: HCV RNA QNT 6.59 Log IU/mL (NOT DETECTED); HCV RNA QUANT RT PCR 3880000 IU/mL (NOT DETECTED)
== END 2020-03-16 23:59 | disposition home or self-care (01) ==
LOC: LAB.WCP 09:30
PROVIDERS: ATTEND Nurse Practitioner Family
DX: R60.0 Localized edema (principal); F15.10 Other stimulant abuse, uncomplicated
CPT/HCPCS: 36415; 80053; 85025; 86803; 87389; 87522

== ENCOUNTER 2020-09-11 04:48 | Inpatient (IN) | payer MEDICARE, MEDICAID ==
--- NOTE | 2020-09-11 04:56 | ED Physician Documentation ---
PD HPI SKIN - Stated complaint Stated Complaint: R HAND SWELLING/REDNESS - Chief complaint Chief Complaint: Wound - History obtained from History obtained from: Patient - History of Present Illness Timing - onset: How many days ago (7) Timing - duration: Days Timing - details: Gradual onset, Constant Pain level max: 10 Pain level now: 10 Location: RUE Quality / character: Painful, Discolored, Swelling Associated symptoms: Other (has not taken his temperature;has had sweats/chills) Contributing factors: Other (IV drug use (heroin, methamphetamine)) Similar symptoms before: Diagnosis (similar symptoms in the past, including March 2020 (admitted to , multiple sites of infection, primarily abdominal wall, RLE), admitted [facility] 2017 for LUE cellulitis and abscess) Recently seen: Clinic - Additional information Additional information: Patient presents with right upper extremity swelling, pain, erythema. Patient states the symptoms started one week ago. He has a long history of intravenous drug use, uses heroin and methamphetamines. Patient states that he was treated at [facility] in the inpatient setting in March 2020 and that he stopped using after being discharged until A few weeks ago. Patient says he was seen in a walk-in clinic five days ago for dental pain and was prescribed doxy cycline. Patient says he has been taking the doxycycline for these five days as prescribed. Patient says at that time, he did not have pain nor swelling of his right arm, making the time of onset unclear, considering he initially reports to me that his symptoms started one week ago. patient says the symptoms on his right hand, wrist, and forearm our sites where he had recently injected drugs. patient is right-hand dominant Review of Systems Constitutional: reports: Chills, Sweats, Other (has not taken his temperatture; he states I think so when asked about fever , clarifying that he has has sweats and chills) Eyes: reports: Reviewed and negative Ears: reports: Reviewed and negative Nose: reports: Reviewed and negative Throat: reports: Dental pain / toothache (resolved few days ago) Cardiac: reports: Reviewed and negative Respiratory: reports: Reviewed and negative GI: reports: Reviewed and negative : denies: Dysuria, Frequency Skin: reports: Rash (RUE erythema) Musculoskeletal: reports: Extremity pain, Extremity swelling Neurologic: reports: Reviewed and negative PD PAST MEDICAL HISTORY - Past Medical History Cardiovascular: Hypertension, Coronary artery disease, Angina, [place] Respiratory: None Neuro: Head injury, Seizure disorder Endocrine/Autoimmune: None GI: None : Other HEENT: None Psych: Anxiety, Panic attacks, Post traumatic stress disorder Musculoskeletal: None Derm: Psoriasis - Past Surgical History Past Surgical History: Yes General: Appendectomy - Present Medications Home Medications: Ambulatory Orders Medication Instructions Recorded Confirmed Sertraline HCl 100 mg PO DAILY 06/16/14 03/25/18 lisinopriL [Lisinopril] 10 mg PO DAILY 06/16/14 03/25/18 Metoprolol Succinate 50 mg PO DAILY 03/25/18 03/25/18 levETIRAcetam [Levetiracetam] 1,500 mg PO BID 03/25/18 03/25/18 Chlorhexidine Gluconate [Hibiclens] 15 ml TP DAILY #236 ml 06/18/18 Doxycycline Hyclate 100 mg PO BID #20 capsule 06/18/18 LORazepam [Ativan] 1 mg PO Q6H PRN #15 tablet 06/18/18 Naproxen 375 mg PO BID #20 tablet 06/18/18 dexAMETHasone [Decadron] 4 mg PO DAILY #5 tablet 06/18/18 Clindamycin HCl [Clindamycin 300MG 300 mg PO Q6H #28 capsule 10/07/18 CAP] LORazepam [Lorazepam] 0.5 - 1 mg PO BID PRN #10 tablet 10/07/18 hydrOXYzine pamoate [Hydroxyzine 25 mg PO Q6HR PRN #20 capsule 10/07/18 Pamoate] Oxycodone HCl/Acetaminophen 1 - 2 each PO Q6H PRN #7 tablet 04/07/19 [Percocet 5-325 mg Tablet] Sulfamethoxazole/Trimethoprim 1 each PO BID #14 tablet 04/07/19 [Sulfamethoxazole-Tmp Ds Tablet] - Allergies Allergies/Adverse Reactions: Allergies Allergy/AdvReac Type Severity Reaction Status Date / Time ceftriaxone Allergy Itching Verified 09/11/20 05:03 morphine Allergy Hives Verified 09/11/20 05:03 Penicillins Allergy Hives Verified 09/11/20 05:03 - Social History Does the pt smoke?: Yes Smoking Status: Current every day smoker Does the pt drink ETOH?: No Does the pt have substance abuse?: Yes - Immunizations Immunizations are current?: No Immunizations: TDAP >10years/unknown, Other immun not current - POLST Patient has POLST: No PD ED PE NORMAL - Vitals Vital signs reviewed: Yes - General General: Well developed/nourished, Other (appears to be in painful discomfort appropriate to the findings on exam of RUE) - HEENT HEENT: Moist mucous membranes, Other (poor dentition) - Neck Neck: Supple, no meningeal sign - Cardiac Cardiac: No murmur - Respiratory Respiratory: No respiratory distress, Clear bilaterally - Abdomen Abdomen: Soft, Non tender - Back Back: No CVA TTP - Neuro Neuro: Alert and oriented X 3 PD ED PE EXPANDED - Cardiac Cardiac: Tachy, Regular Rhythm - Extremities RENE UE/Hands Visual: 1 - rash (confluent erythema), swelling (marked swelling), tenderness (exquisite tenderness without palpable fluctuance) 2 - rash (confluent erythema with mild/moderate swelling but not contiguous with erythema of hand/wrist), tenderness Results - Vitals Vitals: Vital Signs - 24 hr 09/11/20 09/11/20 09/11/20 04:50 05:26 05:53 Temperature 36.4 C L 36.4 C L Heart Rate 105 H 105 H 89 Respiratory 16 16 17 Rate Blood Pressure 190/118 H 190/118 H 155/97 H O2 Saturation 100 99 09/11/20 09/11/20 06:11 06:30 Temperature Heart Rate 88 84 Respiratory 18 17 Rate Blood Pressure 146/93 H 157/99 H O2 Saturation 99 100 Oxygen O2 Source Room air - Labs Labs: Laboratory Tests 09/11/20 09/11/20 09/11/20 06:38 06:38 06:38 WBC 11.7 H RBC 4.27 L Hgb 13.3 L Hct 38.1 L MCV 89.2 MCH 31.1 H MCHC 34.9 RDW 12.5 Plt Count 152 MPV 10.6 Neut # (Auto) 9.0 H Lymph # (Auto) 1.7 Borden # (Auto) 0.9 Eos # (Auto) 0.1 Baso # (Auto) 0.0 Absolute Nucleated RBC 0.00 Nucleated RBC % 0.0 Sodium 134 L Potassium 3.5 Chloride 98 L Carbon Dioxide 27 Anion Gap 9.0 BUN 20 Creatinine 0.8 Estimated GFR (MDRD) 108 Glucose 104 H Lactic Acid 0.7 Calcium 8.9 Total Bilirubin 0.3 AST 19 ALT 19 Alkaline Phosphatase 76 C-Reactive Protein 10.2 H Total Protein 7.4 Albumin 3.6 Globulin 3.8 Albumin/Globulin Ratio 0.9 L Lipase 24 Nasal Adenovirus (PCR) Nasal B. parapertussis DNA (PCR) Nasal Coronavir 229E PCR Nasal Coronavir HKU1 PCR Nasal Coronavir NL63 PCR Nasal Coronavir OC43 PCR Nasal Enterovir/Rhinovir PCR Nasal Influenza B PCR Nasal Influenza A PCR Nasal Parainfluen 1 PCR Nasal Parainfluen 2 PCR Nasal Parainfluen 3 PCR Nasal Parainfluen 4 PCR Nasal RSV (PCR) Nasal B.pertussis DNA PCR Nasal C.pneumoniae (PCR) Issa Human Metapneumo PCR Nasal M.pneumoniae (PCR) Nasal SARS-CoV-2 (PCR) 09/11/20 06:38 WBC RBC Hgb Hct MCV MCH MCHC RDW Plt Count MPV Neut # (Auto) Lymph # (Auto) Borden # (Auto) Eos # (Auto) Baso # (Auto) Absolute Nucleated RBC Nucleated RBC % Sodium Potassium Chloride Carbon Dioxide Anion Gap BUN Creatinine Estimated GFR (MDRD) Glucose Lactic Acid Calcium Total Bilirubin AST ALT Alkaline Phosphatase C-Reactive Protein Total Protein Albumin Globulin Albumin/Globulin Ratio Lipase Nasal Adenovirus (PCR) NOT DETECTED Nasal B. parapertussis DNA (PCR) NOT DETECTED Nasal Coronavir 229E PCR NOT DETECTED Nasal Coronavir HKU1 PCR NOT DETECTED Nasal Coronavir NL63 PCR NOT DETECTED Nasal Coronavir OC43 PCR NOT DETECTED Nasal Enterovir/Rhinovir PCR NOT DETECTED Nasal Influenza B PCR NOT DETECTED Nasal Influenza A PCR NOT DETECTED Nasal Parainfluen 1 PCR NOT DETECTED Nasal Parainfluen 2 PCR NOT DETECTED Nasal Parainfluen 3 PCR NOT DETECTED Nasal Parainfluen 4 PCR NOT DETECTED Nasal RSV (PCR) NOT DETECTED Nasal B.pertussis DNA PCR NOT DETECTED Nasal C.pneumoniae (PCR) NOT DETECTED Issa Human Metapneumo PCR NOT DETECTED Nasal M.pneumoniae (PCR) NOT DETECTED Nasal SARS-CoV-2 (PCR) NOT DETECTED - Rads (name of study) right hand xrays Radiology: Prelim report reviewed, See rad report right forearm xrays Radiology: Prelim report reviewed, See rad report cxr Radiology: Prelim report reviewed, See rad report Procedures - Central Line Central Line Preparation: Consent Obtained, Time out completed, Ultrasound used, Sterile prep and drape Central line location: Right IJ Central line type: Triple lumen Central line aftercare: Chlorhexidine disc placed, Secured, Placement confirmed, No pneumothorax, No complications, Pt tolerated well PD MEDICAL DECISION MAKING - ED course Complexity details: reviewed old records (including records faxed from (March 2020 inpatient stay)), reviewed results, re-evaluated patient, considered differential, d/w patient ED course: marked swelling, erythema, tenderness of right hand, wrist with milder cellulitis of right forearm; there is an area between the two erythematous margins suggesting two separate sites of infection, c/w patients admitted IV drug use with multiple injection sites. he says he typically requires a central line and after nurses tried LUE IV and were unsuccessful, I placed a triple lumen CVC in right IJ. in preparation for this procedure, I noted faint echymosis on the right side of his neck, and he says he has recently injected there, as well (the echymosis does not appear recent and no evidence of infection, but this is another indication of the extent of his drug use). he was calm and cooperative during ED stay. he says he is allergic to penicillin and morphine; discharge summary from previous [facility] indicates a reaction to rocephin, as well. he is given clindamycin and vancomycin in ED and signed out to oncoming ED physician at end of my shift pending disposition, with anticipati on of admission to [facility] Departure - Departure Disposition: [address] [facility] DC/Xfer Clinical Impression: Cellulitis of right hand, IV drug abuse Condition: Stable Discharge Date/Time: 09/11/20 09:01
[2020-09-11] MEDS ORDERED: SODIUM CHLORIDE 0.9% 1,000 ML IV STA (05:08)
[2020-09-11] MEDS ORDERED: HYDROmorphone 1 MG/ML CARPUJECT IVP STA ×3 (05:21→07:14)
[2020-09-11 06:54] LABS: BASOPHILS % (AUTO) 0.1 %; EOSINOPHILS # (AUTO) 0.1 10^3/uL (0.0-0.7); EOSINOPHILS % (AUTO) 0.7 %; HGB - HEMOGLOBIN 13.3 g/dL (14.0-18.0); LYMPHOCYTES # (AUTO) 1.7 10^3/uL (1.5-3.5); LYMPHOCYTES % (AUTO) 14.7 %; MEAN CORPUSCULAR HEMOGLOBIN 31.1 pg (27.0-31.0); MEAN CORPUSCULAR HGB CONC 34.9 g/dL (32.0-36.0); MEAN CORPUSCULAR VOLUME 89.2 fL (80.0-94.0); MEAN PLATELET VOLUME 10.6 fL (7.4-11.4); MONOCYTES # (AUTO) 0.9 10^3/uL (0.0-1.0); MONOCYTES % (AUTO) 7.6 %; NEUTROPHILS % (AUTO) 76.6 %; PLT - PLATELET COUNT 152 10^3/uL (130-450); RED BLOOD COUNT 4.27 10^6/uL (4.70-6.10); RED CELL DISTRIBUTION WIDTH 12.5 % (12.0-15.0); WHITE BLOOD COUNT 11.7 x10^3/uL (4.8-10.8)
[2020-09-11 07:03] LABS: ALBUMIN 3.6 g/dL (3.2-5.5); ALBUMIN/GLOBULIN RATIO 0.9 (1.0-2.2); BILIRUBIN,TOTAL 0.3 mg/dL (0.2-1.0); CALCIUM 8.9 mg/dL (8.5-10.3); CREATININE 0.8 mg/dL (0.6-1.2); CRP - C-REACTIVE PROTEIN 10.2 mg/dL (0-1.0); TOTAL PROTEIN 7.4 g/dL (6.7-8.2)
--- NOTE | 2020-09-11 07:15 | XRAY Report ---
PROCEDURE: Chest for Line Placement INDICATIONS: Central line placement TECHNIQUE: One view of the chest was acquired. COMPARISON: None. FINDINGS: Surgical changes and devices: A right central venous jugular catheter is in place with the distal tip projecting approximately 3.0 cm above the cavoatrial junction. Lungs and pleura: No pleural effusions or pneumothorax. Lungs are clear. Mediastinum: Mediastinal contours appear normal. Heart size is normal. Bones and chest wall: No suspicious bony lesions. Overlying soft tissues appear unremarkable. IMPRESSION: Chest without acute cardiopulmonary abnormalities. Right central venous catheter tip projects approximately 3.0 cm above the bautista. No pneumothorax. No significant discrepancy with initial interpretation by overnight radiologist. Reviewed by: Best Hunt MD on 09/11/2020 7:14 AM PST Approved by: Best Hunt MD on 09/11/2020 7:14 AM PST Station ID: [id number]
[2020-09-11] MEDS ORDERED: VANCOMYCIN INJ 1 GM in SODIUM CHLORIDE 0.9% 500 ML IV STA (07:16)
[2020-09-11] MEDS ORDERED: CLINDAMYCIN 600 MG/50 ML 50 ML IV STA (07:17)
--- NOTE | 2020-09-11 07:18 | XRAY Report ---
PROCEDURE: Hand 3 View RT INDICATIONS: erythema, swelling TECHNIQUE: 3 views of the hand(s) acquired. COMPARISON: None. FINDINGS: Bones: No acute fractures or dislocations. No suspicious bony lesions. Soft tissues: Extensive soft tissue swelling of the right hand and visualized portion of the distal right forearm. No suspicious soft tissue calcifications. Corticated ossification over the dorsal asp ect of the right wrist may represent sequela of remote triquetral fracture. IMPRESSION: Marked soft tissue swelling of the right hand and distal forearm without underlying osseous abnormali ties. No definitive soft tissue gas visualized. No significant discrepancy with initial interpretation by overnight radiologist. Reviewed by: Best Hunt MD on 09/11/2020 7:16 AM PST Approved by: Best Hunt MD on 09/11/2020 7:16 AM PST Station ID: [id number]
--- NOTE | 2020-09-11 07:19 | XRAY Report ---
PROCEDURE: Forearm RT INDICATIONS: redness, swelling TECHNIQUE: 2 views of the forearm were acquired. COMPARISON: None. FINDINGS: Bones: No acute fractures or dislocations. No suspicious bony lesions. Small corticated ossificatio n over the dorsal aspect of the right wrist may represent remote triquetral fracture. Soft tissues: Moderate soft tissue swelling of the right forearm and right wrist. No definite soft ti ssue gas. No suspicious soft tissue calcifications or masses. IMPRESSION: Moderate soft tissue swelling of the right forearm and wrist without underlying osseous abnormalities . Findings are suggestive of cellulitis. No significant discrepancy with initial interpretation by overnight radiologist. Reviewed by: Best Hunt MD on 09/11/2020 7:17 AM PST Approved by: Best Hunt MD on 09/11/2020 7:17 AM PST Station ID: [id number]
[2020-09-11 07:50] LABS: C. PNEUMONIAE- RESP PCR PANEL NOT DETECTED
[2020-09-11] MEDS ORDERED: ONDANSETRON 4 MG/2 ML VIAL IVP PRN (07:51)
[2020-09-11] MEDS ORDERED: SODIUM CHLORIDE FLUSH 0.9% 10 ML SYRINGE IVP PRN (07:51)
--- NOTE | 2020-09-11 07:58 | PROVIDER PROGRESS NOTE ---
Assessment/Plan - Current Meds Current Meds: Current Medications Generic Name Dose Route Start Last Admin Trade Name Freq PRN Reason Stop Dose Admin Sodium Chloride 1,000 mls @ 150 mls/hr 09/11/20 05:08 09/11/20 06:48 Normal Saline 0.9% IV 09/11/20 11:47 150 mls/hr .[id number] STA Administration - Lab Result Fish Bone Diagrams: 09/11/20 06:38 09/11/20 06:38 - Additional Planning My Orders: My Active Orders 09/11/20 Breakfast Regular Diet [DIET] 09/11/20 07:51 Acetaminophen [Tylenol] 650 mg PO Q4HR PRN Ondansetron Inj [Zofran Inj] 4 mg IVP Q6HR PRN Sodium Chloride Flush 0.9% [Normal Saline Flush 0.9%] 10 ml IVP PRN PRN 09/11/20 07:52 Activity Orders [RC] Q2HR Admit \ Transfer \ Status [RC] ONCE IO [RC] IOSHIFT Initiate Bowel Care Protocol [RC] .protocol Initiate Flu Vaccine Screening [RC] ONCE Initiate Line Care Protocol [RC] QSHIFT Initiate Personal Care Protoco [RC] .protocol Initiate Pneumonia Vaccine Scr [RC] ONCE Vital Signs [RC] 0800,1600,0000 Code Status [OTHERS] Routine Condition of Patient [OTHERS] Routine 09/11/20 07:56 Vancomycin: Pharmacy To Dose [Vancomycin-Pharmacy To Dose] 1 each ONCE PRN 09/11/20 08:00 Saccharomyces Boulardii [Florastor] 250 mg PO BIDWM Sodium Chloride 0.9% [Normal Saline 0.9%] 1,000 ml IV 100 mls/hr 09/11/20 09:00 Enoxaparin [Lovenox] 40 mg SUBQ DAILY Sodium Chloride Flush 0.9% [Normal Saline Flush 0.9%] 10 ml IVP 0100,0900,1700 09/11/20 14:00 Clindamycin/D5W 600 mg/50 ml q8hr Clindamycin 600 mg/50 ml [Cleocin 600 mg/50 ml] 50 ml IV Q8HR 09/12/20 05:00 BMP - BASIC METABOLIC PANEL [CHEM] DAILYLAB CBC - COMP BLD CT W/AUTO DIFF [HEME] DAILYLAB 09/13/20 05:00 BMP - BASIC METABOLIC PANEL [CHEM] DAILYLAB CBC - COMP BLD CT W/AUTO DIFF [HEME] DAILYLAB 09/14/20 05:00 BMP - BASIC METABOLIC PANEL [CHEM] DAILYLAB CBC - COMP BLD CT W/AUTO DIFF [HEME] DAILYLAB 09/15/20 05:00 BMP - BASIC METABOLIC PANEL [CHEM] DAILYLAB CBC - COMP BLD CT W/AUTO DIFF [HEME] DAILYLAB 09/16/20 05:00 BMP - BASIC METABOLIC PANEL [CHEM] DAILYLAB CBC - COMP BLD CT W/AUTO DIFF [HEME] DAILYLAB Objective Vital Signs: Vital Signs - 24 hr 09/11/20 09/11/20 09/11/20 04:50 05:26 05:53 Temperature 36.4 C L 36.4 C L Heart Rate 105 H 105 H 89 Respiratory 16 16 17 Rate Blood Pressure 190/118 H 190/118 H 155/97 H O2 Saturation 100 99 09/11/20 09/11/20 06:11 06:30 Temperature Heart Rate 88 84 Respiratory 18 17 Rate Blood Pressure 146/93 H 157/99 H O2 Saturation 99 100 Oxygen O2 Source Room air - Results Results: Laboratory Results WBC 11.7 x10^3/uL (4.8-10.8) H 09/11/20 06:38 RBC 4.27 10^6/uL (4.70-6.10) L 09/11/20 06:38 Hgb 13.3 g/dL (14.0-18.0) L 09/11/20 06:38 Hct 38.1 % (42.0-52.0) L 09/11/20 06:38 MCV 89.2 fL (80.0-94.0) 09/11/20 06:38 MCH 31.1 pg (27.0-31.0) H 09/11/20 06:38 MCHC 34.9 g/dL (32.0-36.0) 09/11/20 06:38 RDW 12.5 % (12.0-15.0) 09/11/20 06:38 Plt Count 152 10^3/uL (130-450) 09/11/20 06:38 MPV 10.6 fL (7.4-11.4) 09/11/20 06:38 Neut # (Auto) 9.0 10^3/uL (1.5-6.6) H 09/11/20 06:38 Lymph # (Auto) 1.7 10^3/uL (1.5-3.5) 09/11/20 06:38 Ashley # (Auto) 0.9 10^3/uL (0.0-1.0) 09/11/20 06:38 Eos # (Auto) 0.1 10^3/uL (0.0-0.7) 09/11/20 06:38 Baso # (Auto) 0.0 10^3/uL (0.0-0.1) 09/11/20 06:38 Absolute Nucleated RBC 0.00 x10^3/uL 09/11/20 06:38 Nucleated RBC % 0.0 /100WBC 09/11/20 06:38 Sodium 134 mmol/L (135-145) L 09/11/20 06:38 Potassium 3.5 mmol/L (3.5-5.0) 09/11/20 06:38 Chloride 98 mmol/L (101-111) L 09/11/20 06:38 Carbon Dioxide 27 mmol/L (21-32) 09/11/20 06:38 Anion Gap 9.0 (6-13) 09/11/20 06:38 BUN 20 mg/dL (6-20) 09/11/20 06:38 Creatinine 0.8 mg/dL (0.6-1.2) 09/11/20 06:38 Estimated GFR (MDRD) 108 (>89) 09/11/20 06:38 Glucose 104 mg/dL (70-100) H 09/11/20 06:38 Lactic Acid 0.7 mmol/L (0.5-2.2) 09/11/20 06:38 Calcium 8.9 mg/dL (8.5-10.3) 09/11/20 06:38 Total Bilirubin 0.3 mg/dL (0.2-1.0) 09/11/20 06:38 AST 19 IU/L (10-42) 09/11/20 06:38 ALT 19 IU/L (10-60) 09/11/20 06:38 Alkaline Phosphatase 76 IU/L (42-121) 09/11/20 06:38 C-Reactive Protein 10.2 mg/dL (0-1.0) H 09/11/20 06:38 Total Protein 7.4 g/dL (6.7-8.2) 09/11/20 06:38 Albumin 3.6 g/dL (3.2-5.5) 09/11/20 06:38 Globulin 3.8 g/dL (2.1-4.2) 09/11/20 06:38 Albumin/Globulin Ratio 0.9 (1.0-2.2) L 09/11/20 06:38 Lipase 24 U/L (22-51) 09/11/20 06:38 Nasal Adenovirus (PCR) NOT DETECTED 09/11/20 06:38 Nasal B. parapertussis DNA (PCR) NOT DETECTED 09/11/20 06:38 Nasal Coronavir 229E PCR NOT DETECTED 09/11/20 06:38 Nasal Coronavir HKU1 PCR NOT DETECTED 09/11/20 06:38 Nasal Coronavir NL63 PCR NOT DETECTED 09/11/20 06:38 Nasal Coronavir OC43 PCR NOT DETECTED 09/11/20 06:38 Nasal Enterovir/Rhinovir PCR NOT DETECTED 09/11/20 06:38 Nasal Influenza B PCR NOT DETECTED 09/11/20 06:38 Nasal Influenza A PCR NOT DETECTED 09/11/20 06:38 Nasal Parainfluen 1 PCR NOT DETECTED 09/11/20 06:38 Nasal Parainfluen 2 PCR NOT DETECTED 09/11/20 06:38 Nasal Parainfluen 3 PCR NOT DETECTED 09/11/20 06:38 Nasal Parainfluen 4 PCR NOT DETECTED 09/11/20 06:38 Nasal RSV (PCR) NOT DETECTED 09/11/20 06:38 Nasal B.pertussis DNA PCR NOT DETECTED 09/11/20 06:38 Nasal C.pneumoniae (PCR) NOT DETECTED 09/11/20 06:38 Issa Human Metapneumo PCR NOT DETECTED 09/11/20 06:38 Nasal M.pneumoniae (PCR) NOT DETECTED 09/11/20 06:38 Nasal SARS-CoV-2 (PCR) NOT DETECTED 09/11/20 06:38 - Procedures Procedures: Procedures DRAINAGE OF L UP ARM SUBCU/FASCIA, OPEN APPROACH (03/24/18)
--- NOTE | 2020-09-11 08:00 | HISTORY & PHYSICAL EXAMINATION ---
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 He was prescribed doxycycline a week ago which she reports he has been taking. It was prescribed for 10 days. He has taken it for 7 days so far. However he came to the ED today because the hand was becoming increasingly painful red and swollen. He denied fever or drainage from the hand. He last use heroin about a week ago. He denies the possibility of any foreign object in the arm. He was presented for admission and treatment with IV antibiotics, having failed outpatient management. He has history of MRSA infections in the past. He has extensive tattoos over his arms bilaterally. Currently he denies chest pain, dyspnea, abdominal pain, nausea or vomiting. History - Past Medical History Cardiovascular: reports: Hypertension, Coronary artery disease, Angina, [place] Respiratory: reports: None Neuro: reports: Head injury, Seizure disorder Endocrine/Autoimmune: reports: None GI: reports: None : reports: Other HEENT: reports: None Psych: reports: Anxiety, Panic attacks, Post traumatic stress disorder Musculoskeletal: reports: None Derm: reports: Psoriasis MRSA Hx?: Yes - Past Surgical History General: reports: Appendectomy - Family & Social History Family History Comment/Other: Previous records state that the patient's mother was alcoholic. The patient is not in very close communication with his family thus does not have a lot of information on their health history. Social History Notes: He lives in [place]. He has been living there since the age of 10. He was brought in [place], [place] but moved when he was young. He is . He has 3 children. He smokes about 6 to 7 cigarettes daily and also uses a vaporizer. He used to drink but denies alcohol. He has history of methamphetamine, heroine and marijuana use. - Substance History Use: Uses substance without health or social issues: Tobacco, Amphetamine (denies but positive tox screen), Cannabis (denied but positive tox screen), Opioid (denied but positive tox screen) - POLST Patient has POLST: No POLST Status: Full Code Meds/Allgy - Home Medications Home Medications: Ambulatory Orders Medication Instructions Recorded Confirmed levETIRAcetam [Levetiracetam] 1,500 mg PO BID 03/25/18 09/11/20 Clindamycin HCl [Clindamycin 300MG 300 mg PO TID 09/11/20 09/11/20 CAP] - Allergies Allergies/Adverse Reactions: Allergies Allergy/AdvReac Type Severity Reaction Status Date / Time ceftriaxone Allergy Itching Verified 09/11/20 05:03 morphine Allergy Hives Verified 09/11/20 05:03 Penicillins Allergy Hives Verified 09/11/20 05:03 Review of Systems - Constitutional Constitutional: denies: Fatigue, Fever, Chills - Eyes Eyes: denies: Pain, Vision loss, Dipolpia - Ears, Nose & Throat Ears, Nose & Throat: denies: Vertigo - Cardiovascular Cariovascular: reports: Palpitations. denies: Irregular heart rate, Chest pain, Edema, Lightheadedness, Syncope, Exertional dyspnea - Respiratory Respiratory: denies: Cough, Sputum production, Wheezing, SOB at rest, SOB with exertion - Gastrointestinal Gastrointestinal: denies: Abdominal pain, Abdominal distention, Constipation, Diarrhea, Nausea, Vomiting, Coffee grounds emesis, Reflux/heartburn - Genitourinary Genitourinary: denies: Dysuria, Frequency, Urgency, Hematuria - Musculoskeletal Musculoskeletal: reports: Other (Right hand and forearm redness, swelling and pain). denies: Muscle pain, Back pain, Muscle aches - Integumentary Integumentary: reports: Rash (Psoriatic) - Neurological Neurological: denies: General weakness, Focal weakness, Headache, Dizziness - Psychiatric Psychiatric: denies: Depression, Anxiety - Endocrine Endocrine: denies: Polyuria, Polydypsia - Hematologic/Lymphatic Hematologic/Lymphatic: denies: Anemia, Bruising, Petechiae Prior Level of Functionality: He is independent of activities of daily living. Exam - Vital Signs Vital Signs: Vital Signs x48h Temp Pulse Resp BP Pulse Ox 09/11/20 06:30 84 17 157/99 H 100 09/11/20 06:11 88 18 146/93 H 99 09/11/20 05:53 89 17 155/97 H 99 09/11/20 05:26 36.4 C L 105 H 16 190/118 H 100 09/11/20 04:50 36.4 C L 105 H 16 190/118 H - Physical Exam General Appearance: positive: Alert, Moderate distress Eyes Bilateral: positive: PERRL, EOMI ENT: positive: No signs of dehydration Neck: positive: No JVD, Trachea midline Respiratory: positive: Chest non-tender, No respiratory distress, Breath sounds nml. negative: Wheezes, Rales, Rhonchi Cardiovascular: positive: No murmur, Tachycardia Abdomen: positive: Non-tender, Nml bowel sounds, No distention. negative: Guarding, Rebound Back: positive: Nml inspection Skin: positive: Other (Right hand, wrist and forearm swollen, erythematous and tender to palpation. Pain worse when he attempts to extend fingers. Patient has Psoriatic lesions all over his body. Patient has extensive tattoos all over his body.) Extremities: positive: Other (Right hand, wrist and forearm swollen, erythematous and tender to palpation. Pain worse when he attempts to extend fingers. Patient has Psoriatic lesions all over his body. Patient has extensive tattoos all over his body.) Neurologic/Psychiatric: positive: Oriented x3, Other (Disgruntled) Conclusion/Plan - Problem List (1) Cellulitis Conclusion/Plan: Was drawn. Patient started on vancomycin and clindamycin. We will continue. If no improvement will consider switching clindamycin to meropenem. Patient has history of MRSA positive in his wounds before. Pain management with Tylenol, Toradol and or oxycodone If pain worsens in right arm. Will consider CT scan of the arm. X-ray done in the ED was negative for any soft tissue gas or underlying osseous abnormalities but showed soft tissue edema consistent with cellulitis. Lactic acid was 0.7 (2) IV drug abuse Conclusion/Plan: To minimize use of narcotics. However due to patient's significant right hand and arm swelling, Codon 10 mg every 4 hours as needed ordered. (3) History of seizures Conclusion/Plan: On Keppra 750 mg p.o. twice daily. We will continue (4) Psoriasis Conclusion/Plan: Chronic. Not on any medications. - Lab Results Fish Bones: 09/11/20 06:38 09/11/20 06:38 Core Measures - Anticipated LOS I expect patient to be DC'd or transferred within 96 hours.: Yes - DVT/VTE - Prophylaxis VTE/DVT Device ordered at admit?: Yes VTE/DVT Prophylaxis med ordered at admit?: Yes
[2020-09-11] MEDS ORDERED: VANCOMYCIN INJ 2 GM in SODIUM CHLORIDE 0.9% 500 ML IV ONE (08:30)
[2020-09-11] MEDS: SODIUM CHLORIDE FLUSH 0.9% 10 ML SYRINGE IVP SCH ×3 (09:11→23:48)
[2020-09-11] MEDS: SODIUM CHLORIDE 0.9% 1,000 ML IV SCH ×2 (09:11→21:20)
[2020-09-11] MEDS: ENOXAPARIN 40 MG/0.4 ML SYRINGE SUBQ SCH (09:13)
[2020-09-11] MEDS: ACETAMINOPHEN 325 MG TABLET PO PRN ×3 (09:13→20:30)
[2020-09-11] MEDS: SACCHAROMYCES BOULARDII 250 MG CAPSULE PO SCH ×2 (09:14→17:04)
--- NOTE | 2020-09-11 10:07 | PHARMACY PROGRESS NOTE ---
- Therapy Status Vancomycin regimen day #: 1 Therapy status: Awaiting steady state Basis for treatment: Empirical Treatment indication: CELLULITIS OF HAND Trough goal: 15-20 Concurrent antibiotics: CLINDAMYCIN - ADRIEN Risk Risk level for Acute Kidney Injury: Low - Monitoring and Recommendation Clinical response to treatment: I&O Previous 24 hours 09/09/20 09/10/20 09/11/20 23:59 23:59 23:59 Intake Total 380 Balance 380 Lab Results 09/11/20 06:38 BUN 20 Creatinine 0.8 Estimated GFR (MDRD) 108 Monitoring plan: Daily serum creatinine (VANCOMYCIN INITIATED: CELLULITIS/ SKIN SOFT TISSUE INFECTION - EMPIRIC THERAPY + CLINDAMYCIN 2GM LOADING DOSE X1 IN ED MAINTENACE DOSE = 1GM Q8H T1/2 ~ 7H SCR: 0.8 MG/DL; CRCL: ~110 ML/MIN TROUGH SCHEDULED FOR 09/12 @ 1600)
--- NOTE | 2020-09-11 12:58 | PHARMACY PROGRESS NOTE ---
- Best Possible Medication History Admit Date and Time: 09/11/20 0751 Processed by: Pharmacy Medication History completed: Yes Patient Interview: Completed Secondary Source(s): Physician records (PATIENT INTERVIEWED BY PHARMACY. PATIENT REPORTS HE ONLY TAKES KEPPRA 1500MG BID. PATIENT RECENTLY COMPLETED CLINDAMYCIN AND BACTRIM COURSES ), Pharmacy records, Insurance records As the person ultimately responsible for medication therapy, providers are able to order a medication from an existing home medication list in [facility] via the "Reconcile Routine" prior to Confirmation of that medication by customer support assistant. Such practice is discouraged except when the physician, in their clinical judgment, deems that a medical need exists for a medication without regard to previous use.
[2020-09-11] MEDS: CLINDAMYCIN 600 MG/50 ML 50 ML IV SCH ×2 (13:35→21:20)
[2020-09-11] MEDS: KETOROLAC 15 MG/ML VIAL IVP PRN ×2 (14:57→23:52)
[2020-09-11] MEDS: oxyCODONE 5 MG TABLET PO PRN ×2 (15:32→20:30)
[2020-09-11] MEDS: VANCOMYCIN INJ 1 GM, VANCOMYCIN INJ 250 MG in SODIUM CHLORIDE 0.9% 250 ML IV SCH (17:03)
[2020-09-11] MEDS ORDERED: cloNIDine 0.1 MG TABLET PO STA (17:17)
[2020-09-11] MEDS: levETIRAcetam 250 MG TABLET PO SCH (20:30)
[2020-09-12] MEDS: VANCOMYCIN INJ 1 GM, VANCOMYCIN INJ 250 MG in SODIUM CHLORIDE 0.9% 250 ML IV SCH ×2 (00:43→08:12)
[2020-09-12] MEDS: oxyCODONE 5 MG TABLET PO PRN ×3 (03:37→13:52)
[2020-09-12] MEDS: ACETAMINOPHEN 325 MG TABLET PO PRN (03:38)
[2020-09-12 05:09] LABS: BASOPHILS % (AUTO) 0.1 %; EOSINOPHILS # (AUTO) 0.1 10^3/uL (0.0-0.7); EOSINOPHILS % (AUTO) 0.4 %; HGB - HEMOGLOBIN 11.9 g/dL (14.0-18.0); LYMPHOCYTES # (AUTO) 1.3 10^3/uL (1.5-3.5); LYMPHOCYTES % (AUTO) 11.1 %; MEAN CORPUSCULAR HGB CONC 33.8 g/dL (32.0-36.0); MEAN CORPUSCULAR VOLUME 88.7 fL (80.0-94.0); MEAN PLATELET VOLUME 10.9 fL (7.4-11.4); MONOCYTES # (AUTO) 0.8 10^3/uL (0.0-1.0); MONOCYTES % (AUTO) 6.6 %; NEUTROPHILS # (AUTO) 9.5 10^3/uL (1.5-6.6); NEUTROPHILS % (AUTO) 81.5 %; PLT - PLATELET COUNT 149 10^3/uL (130-450); RED BLOOD COUNT 3.97 10^6/uL (4.70-6.10); RED CELL DISTRIBUTION WIDTH 11.9 % (12.0-15.0); WHITE BLOOD COUNT 11.6 x10^3/uL (4.8-10.8)
[2020-09-12 05:18] LABS: CALCIUM 8.8 mg/dL (8.5-10.3); CREATININE 0.8 mg/dL (0.6-1.2)
[2020-09-12] MEDS: CLINDAMYCIN 600 MG/50 ML 50 ML IV SCH ×2 (05:40→13:50)
[2020-09-12] MEDS ORDERED: hydrOXYzine PAMOATE 25 MG CAPSULE PO PRN (05:48)
[2020-09-12 07:53] VITALS: BP 165/94
[2020-09-12] MEDS: KETOROLAC 15 MG/ML VIAL IVP PRN (08:14)
[2020-09-12] MEDS: ENOXAPARIN 40 MG/0.4 ML SYRINGE SUBQ SCH (08:16)
[2020-09-12] MEDS: SACCHAROMYCES BOULARDII 250 MG CAPSULE PO SCH (08:17)
[2020-09-12] MEDS: levETIRAcetam 250 MG TABLET PO SCH (08:17)
[2020-09-12] MEDS: SODIUM CHLORIDE FLUSH 0.9% 10 ML SYRINGE IVP SCH (08:18)
[2020-09-12] MEDS ORDERED: NICOTINE 14 MG PATCH TOP SCH (09:00)
[2020-09-12] MEDS ORDERED: LORazepam 2 MG/ML VIAL IVP STA (10:15)
[2020-09-12] MEDS ORDERED: POTASSIUM CHLORIDE 20 MEQ TABLET PO STA (10:19)
--- NOTE | 2020-09-12 10:21 | PROVIDER PROGRESS NOTE ---
Assessment/Plan - Current Meds Current Meds: Current Medications Generic Name Dose Route Start Last Admin Trade Name Freq PRN Reason Stop Dose Admin Acetaminophen 650 mg 09/11/20 07:51 09/12/20 03:38 Acetaminophen 325 Mg Tablet PO 650 mg Q4HR PRN Administration Pain 1 to 4 Enoxaparin Sodium 40 mg 09/11/20 09:00 09/12/20 08:16 Enoxaparin 40 Mg/0.4 Ml Syringe SUBQ 40 mg DAILY KENDALL Administration Heparin Sodium (Beef Lung) 30 - 50 unit 09/11/20 20:27 09/12/20 04:43 Heparin Flush 50 Units/5 Ml Syringe IVP 50 unit PRN PRN Administration Central Line Protocol (<24 hr) Hydroxyzine Pamoate 25 mg 09/12/20 05:48 09/12/20 06:01 Hydroxyzine Pamoate 25 Mg Capsule PO 25 mg Q6HR PRN Administration Agitation Sodium Chloride 1,000 mls @ 100 mls/hr 09/11/20 08:00 09/11/20 21:20 Normal Saline 0.9% IV 100 mls/hr .Q10H KENDALL Administration Clindamycin Phosphate 50 mls @ 100 mls/hr 09/11/20 14:00 09/12/20 06:11 Cleocin 600 Mg/50 Ml IV Infused Q8HR KENDALL Infusion Vancomycin HCl 1 gm/ 250 mls @ 167 mls/hr 09/11/20 17:00 09/12/20 09:48 Vancomycin HCl 250 mg/ Sodium IV Infused Chloride Q8H KENDALL Infusion Ketorolac Tromethamine 15 mg 09/11/20 14:41 09/12/20 08:14 Ketorolac 15 Mg/Ml Vial IVP 09/16/20 14:40 15 mg Q6HR PRN Administration PAIN Levetiracetam 1,500 mg 09/11/20 21:00 09/12/20 08:17 Levetiracetam 250 Mg Tablet PO 1,500 mg BID KENDALL Administration Nicotine 1 patch 09/12/20 09:00 09/12/20 08:17 Nicotine 14 Mg Patch TOP 1 patch DAILY KENDALL Administration Oxycodone HCl 10 mg 09/11/20 15:10 09/12/20 08:18 Oxycodone 5 Mg Tablet PO 10 mg Q4HR PRN Administration PAIN Saccharomyces Boulardii 250 mg 09/11/20 08:00 09/12/20 08:17 Saccharomyces Boulardii 250 Mg Capsule PO 250 mg BIDWM KENDALL Administration Sodium Chloride 10 ml 09/11/20 09:00 09/12/20 08:18 Sodium Chloride Flush 0.9% 10 Ml Syringe IVP 10 ml 0100,0900,1700 KENDALL Administration - Lab Result Fish Bone Diagrams: 09/12/20 04:45 09/12/20 04:45 - Additional Planning My Orders: My Active Orders 09/11/20 14:00 Clindamycin 600 mg/50 ml [Cleocin 600 mg/50 ml] 50 ml IV Q8HR 09/11/20 14:41 Ketorolac Inj (15Mg) [Toradol Inj (15Mg)] 15 mg IVP Q6HR PRN 09/11/20 15:10 oxyCODONE [Roxicodone] 10 mg PO Q4HR PRN 09/11/20 17:00 Vancomycin Inj [Vancomycin] 1 gm Vancomycin Inj 250 mg Sodium Chloride 0.9% [Normal Saline 0.9%] 250 ml IV Q8H 09/11/20 20:27 Heparin Flush 30 - 50 unit IVP PRN PRN 09/11/20 21:00 levETIRAcetam [Keppra] 1,500 mg PO BID 09/12/20 09:00 Nicotine 14 mg Patch [Nicoderm] 1 patch TOP DAILY 09/12/20 10:19 Potassium Chloride [K-Dur] 40 meq PO ONCE STA 09/12/20 15:00 LORazepam INJ [Ativan Inj (Vial)] 0.5 mg IVP Q6H PRN 09/13/20 05:00 BMP - BASIC METABOLIC PANEL [CHEM] DAILYLAB CBC - COMP BLD CT W/AUTO DIFF [HEME] DAILYLAB 09/14/20 05:00 BMP - BASIC METABOLIC PANEL [CHEM] DAILYLAB CBC - COMP BLD CT W/AUTO DIFF [HEME] DAILYLAB 09/15/20 05:00 BMP - BASIC METABOLIC PANEL [CHEM] DAILYLAB CBC - COMP BLD CT W/AUTO DIFF [HEME] DAILYLAB 09/16/20 05:00 BMP - BASIC METABOLIC PANEL [CHEM] DAILYLAB CBC - COMP BLD CT W/AUTO DIFF [HEME] DAILYLAB Objective Vital Signs: Vital Signs - 24 hr 09/11/20 09/11/20 09/12/20 16:00 23:53 03:39 Temperature 37.3 C 37.5 C 36.5 C Heart Rate [ 85 92 96 Brachial] Respiratory 18 20 18 Rate Blood Pressure 150/89 H 150/81 H 157/87 H [Right Brachial artery] O2 Saturation 98 98 100 09/12/20 07:49 Temperature 37.0 C Heart Rate [ 89 Brachial] Respiratory 21 Rate Blood Pressure 165/94 H [Right Brachial artery] O2 Saturation 96 Oxygen O2 Source Room air I&O (Last 24 Hrs): Intake and Output Totals x24h 09/10/20 09/11/20 09/12/20 23:59 23:59 23:59 Intake Total 2188.333 1170 Output Total 900 1375 Balance 1288.333 -205 - Results Results: Laboratory Results WBC 11.6 x10^3/uL (4.8-10.8) H 09/12/20 04:45 RBC 3.97 10^6/uL (4.70-6.10) L 09/12/20 04:45 Hgb 11.9 g/dL (14.0-18.0) L 09/12/20 04:45 Hct 35.2 % (42.0-52.0) L 09/12/20 04:45 MCV 88.7 fL (80.0-94.0) 09/12/20 04:45 MCH 30.0 pg (27.0-31.0) 09/12/20 04:45 MCHC 33.8 g/dL (32.0-36.0) 09/12/20 04:45 RDW 11.9 % (12.0-15.0) L 09/12/20 04:45 Plt Count 149 10^3/uL (130-450) 09/12/20 04:45 MPV 10.9 fL (7.4-11.4) 09/12/20 04:45 Neut # (Auto) 9.5 10^3/uL (1.5-6.6) H 09/12/20 04:45 Lymph # (Auto) 1.3 10^3/uL (1.5-3.5) L 09/12/20 04:45 [place] # (Auto) 0.8 10^3/uL (0.0-1.0) 09/12/20 04:45 Eos # (Auto) 0.1 10^3/uL (0.0-0.7) 09/12/20 04:45 Baso # (Auto) 0.0 10^3/uL (0.0-0.1) 09/12/20 04:45 Absolute Nucleated RBC 0.00 x10^3/uL 09/12/20 04:45 Nucleated RBC % 0.0 /100WBC 09/12/20 04:45 Sodium 138 mmol/L (135-145) 09/12/20 04:45 Potassium 3.2 mmol/L (3.5-5.0) L 09/12/20 04:45 Chloride 101 mmol/L (101-111) 09/12/20 04:45 Carbon Dioxide 25 mmol/L (21-32) 09/12/20 04:45 Anion Gap 12.0 (6-13) 09/12/20 04:45 BUN 11 mg/dL (6-20) 09/12/20 04:45 Creatinine 0.8 mg/dL (0.6-1.2) 09/12/20 04:45 Estimated GFR (MDRD) 108 (>89) 09/12/20 04:45 Glucose 107 mg/dL (70-100) H 09/12/20 04:45 Lactic Acid 0.7 mmol/L (0.5-2.2) 09/11/20 06:38 Calcium 8.8 mg/dL (8.5-10.3) 09/12/20 04:45 Total Bilirubin 0.3 mg/dL (0.2-1.0) 09/11/20 06:38 AST 19 IU/L (10-42) 09/11/20 06:38 ALT 19 IU/L (10-60) 09/11/20 06:38 Alkaline Phosphatase 76 IU/L (42-121) 09/11/20 06:38 C-Reactive Protein 10.2 mg/dL (0-1.0) H 09/11/20 06:38 Total Protein 7.4 g/dL (6.7-8.2) 09/11/20 06:38 Albumin 3.6 g/dL (3.2-5.5) 09/11/20 06:38 Globulin 3.8 g/dL (2.1-4.2) 09/11/20 06:38 Albumin/Globulin Ratio 0.9 (1.0-2.2) L 09/11/20 06:38 Lipase 24 U/L (22-51) 09/11/20 06:38 Nasal Adenovirus (PCR) NOT DETECTED 09/11/20 06:38 Nasal B. parapertussis DNA (PCR) NOT DETECTED 09/11/20 06:38 Nasal Coronavir 229E PCR NOT DETECTED 09/11/20 06:38 Nasal Coronavir HKU1 PCR NOT DETECTED 09/11/20 06:38 Nasal Coronavir NL63 PCR NOT DETECTED 09/11/20 06:38 Nasal Coronavir OC43 PCR NOT DETECTED 09/11/20 06:38 Nasal Enterovir/Rhinovir PCR NOT DETECTED 09/11/20 06:38 Nasal Influenza B PCR NOT DETECTED 09/11/20 06:38 Nasal Influenza A PCR NOT DETECTED 09/11/20 06:38 Nasal Parainfluen 1 PCR NOT DETECTED 09/11/20 06:38 Nasal Parainfluen 2 PCR NOT DETECTED 09/11/20 06:38 Nasal Parainfluen 3 PCR NOT DETECTED 09/11/20 06:38 Nasal Parainfluen 4 PCR NOT DETECTED 09/11/20 06:38 Nasal RSV (PCR) NOT DETECTED 09/11/20 06:38 Nasal Screen MRSA (PCR) NEGATIVE (NEGATIVE) 09/11/20 11:11 Nasal B.pertussis DNA PCR NOT DETECTED 09/11/20 06:38 Nasal C.pneumoniae (PCR) NOT DETECTED 09/11/20 06:38 Issa Human Metapneumo PCR NOT DETECTED 09/11/20 06:38 Nasal M.pneumoniae (PCR) NOT DETECTED 09/11/20 06:38 Nasal SARS-CoV-2 (PCR) NOT DETECTED 09/11/20 06:38 - Procedures Procedures: Procedures DRAINAGE OF L UP ARM SUBCU/FASCIA, OPEN APPROACH (03/24/18) ABX Reporting Has patient been on IV antibiotics over the past 48 hours?: Yes
[2020-09-12] MEDS: SODIUM CHLORIDE 0.9% 1,000 ML IV SCH (10:34)
[2020-09-12] MEDS ORDERED: MAGNESIUM SULFATE 2 GRAM 2 GM/50 ML BAG IV ONE (11:30)
--- NOTE | 2020-09-12 14:41 | DISCHARGE SUMMARY ---
Discharge Summary Admit Date: 09/11/20 Discharge Date: 09/12/20 Discharging Provider: Konstantin Zuritatricky Code Status: Attempt Resuscitation Condition at Discharge: Stable Discharge Disposition: 07 Against Medical Advice - DIAGNOSES Admission Diagnoses: Cellulitis IV drug abuse History of seizures Psoriasis Discharge Diagnoses with Status of Each Condition: Cellulitis: Acute. Patient left AMA IV drug abuse: Chronic. Patient last used 1 week prior to presentation History of seizures: Chronic. Patient on Keppra 750 twice daily Psoriasis: Chronic. patient is not on any medication. - HPI History of Present Illness: This 40-year-old male with medical history significant for IV drug use, previous right hand cellulitis in 2014, hypertension, DVT, coronary syndrome/coronary artery disease related to methamphetamine use status post catheterization in 2003 in [place], seizures on Keppra, depression, psoriasis, MRSA positive wound cultures in 2014 who presented to the ED with complaint of worsening right hand and forearm swelling and redness. He was prescribed doxycycline a week ago which she reports he has been taking. It was prescribed for 10 days. He has taken it for 7 days so far. However he came to the ED today because the hand was becoming increasingly painful red and swollen. He denied fever or drainage from the hand. He last use heroin about a week ago. He denies the possibility of any foreign object in the arm. He was presented for admission and treatment with IV antibiotics, having failed outpatient management. He has history of MRSA infections in the past. He has extensive tattoos over his arms bilaterally. Currently he denies chest pain, dyspnea, abdominal pain, nausea or vomiting. Blood cultures were drawn in the ED. The patient was started on vancomycin and clindamycin which were continued during his hospital stay. By the next day it appeared a point of potential abscess was coming to ahead. There was no significant change in the patient's right hand pain. He could ex tend and flex his fingers without significant pain. While the patient was sleeping he somehow applied pressure on the hand which resulted in the abscess rupturing and bled somewhat. The hand was wrapped with bandage. The patient specifically requested to be given Dilaudid. This was denied. He was prescribed oxycodone instead. He also specifically demanded methadone which was again declined. He was subsequently prescribed Ativan 1 mg IV x1 and then 0.5 mg IV every 6 hours as needed for anxiety. At this point which was around 2pm on 09/12/20, he decided he was going to leave AM because he was not happy with his treatment in the hospital. He was advised to reconsider and stay for further treatment. He was told he could go into septic shock and it could potentially lead to his demise. He e xpressed understanding but insisted that he was going to leave and if needed he will go to another hospital. Consequently he was discharged. - ALLERGIES Allergies/Adverse Reactions: Allergies Allergy/AdvReac Type Severity Reaction Status Date / Time ceftriaxone Allergy Itching Verified 09/11/20 05:03 morphine Allergy Hives Verified 09/11/20 05:03 Penicillins Allergy Hives Verified 09/11/20 05:03 - MEDICATIONS Home Medications: Ambulatory Orders Medication Instructions Recorded Confirmed levETIRAcetam [Levetiracetam] 1,500 mg PO BID 03/25/18 09/11/20 Clindamycin HCl [Clindamycin 300MG 300 mg PO TID 09/11/20 09/11/20 CAP] - PHYSICAL EXAM AT DISCHARGE General Appearance: positive: Alert, Moderate distress Eyes Bilateral: positive: PERRL, EOMI ENT: positive: No signs of dehydration Neck: positive: No JVD, Trachea midline Respiratory: positive: Chest non-tender, No respiratory distress, Breath sounds nml. negative: Wheezes, Rales, Rhonchi Cardiovascular: positive: Regular rate & rhythm, No murmur Abdomen: positive: Non-tender, No organomegaly, Nml bowel sounds, No distention. negative: Guarding, Rebound Back: positive: Nml inspection Skin: positive: Other (Psoriatec lesions/rash all over body. Right hand is swollen and red. There is tenderness to palpation. The head of a potential abscess is noted on the medial aspect of the patient's right hand.) Neurologic/Psychiatric: positive: Oriented x3, Other (Disgruntled) - LABS Result Diagrams: 09/12/20 04:45 09/12/20 04:45 - TIME SPENT Time Spent in Discharge (Minutes): 25
--- NOTE | 2020-09-12 14:42 | Discharge Plan ---
Discharge Plan Problem Reviewed?: Yes Disposition: 07 Against Medical Advice Condition: Stable Diet: Regular Activity Restrictions: Activity as Tolerated Shower Restrictions: No No Smoking: If you smoke, Please STOP! Call for help. Follow-up with: Wilson Christianson MD [Primary Care Provider] -
[2020-09-12] MEDS ORDERED: LORazepam 2 MG/ML VIAL IVP PRN (15:00)
== END 2020-09-12 13:10 | disposition left against medical advice (07) | DRG 603 ==
LOC: ED 04:48 → MS3 07:51
PROVIDERS: ADMIT Internal Medicine; ATTEND Internal Medicine
DX: L03.113 Cellulitis of right upper limb (principal); F19.10 Other psychoactive substance abuse, uncomplicated; F11.20 Opioid dependence, uncomplicated; F15.20 Other stimulant dependence, uncomplicated; F12.20 Cannabis dependence, uncomplicated; L40.9 Psoriasis, unspecified; I10 Essential (primary) hypertension; I25.119 Atherosclerotic heart disease of native coronary artery with unspecified angina pectoris; F17.200 Nicotine dependence, unspecified, uncomplicated; G40.909 Epilepsy, unspecified, not intractable, without status epilepticus; F43.10 Post-traumatic stress disorder, unspecified; F41.0 Panic disorder [episodic paroxysmal anxiety]; F41.9 Anxiety disorder, unspecified; F32.9 Major depressive disorder, single episode, unspecified; F17.210 Nicotine dependence, cigarettes, uncomplicated; F17.290 Nicotine dependence, other tobacco product, uncomplicated; Z79.899 Other long term (current) drug therapy; I25.2 Old myocardial infarction; Z86.718 Personal history of other venous thrombosis and embolism; Z86.14 Personal history of Methicillin resistant Staphylococcus aureus infection
CPT/HCPCS: 36415; 36556; 71045; 73090; 73130; 80048; 80053; 83605; 83690; 83735; 85025; 86140; 87040; 87631; 87640; 96374; 96376; 99284; 99285; A9270; J1170; J1650; J2060; J3370; 0202U; 80202

== ENCOUNTER 2020-10-29 20:16 | Outpatient (CLI) | payer MEDICARE, MEDICAID ==
--- OUTSIDE RECORDS SUMMARY | 2020-11-02 02:45 | EXTERNAL MEDICAL SUMMARY RPT | Continuity of Care Document ---
:1980 Demographics Phone Unavailable Preferred Language Unknown Marital Status Unknown Confucianist Affiliation Unknown Race Unknown Ethnic Group Unknown Author Organization [facility] Address [address] [place] [address] Phone Social History date description facility [phone]
== END 2020-10-29 20:17 | disposition critical access hospital (66) ==
LOC: EMS 20:16
PROVIDERS: ATTEND Emergency Medicine
DX: R56.9 Unspecified convulsions (principal)
CPT/HCPCS: A0425; A0427

== ENCOUNTER 2020-10-29 20:35 | Emergency (ER) | payer MEDICARE, MEDICAID ==
--- NOTE | 2020-10-29 20:58 | ED Physician Documentation ---
PD HPI SEIZURE - Stated complaint Stated Complaint: SZ - Chief complaint Chief Complaint: Neuro - History obtained from History obtained from: Patient, EMS - History of Present Illness Timing - onset: Today (just [employer] IN[employer]CHIT[employer]) Witnessed: Witnessed Number of seizures: Single Description of seizure activity: Generalized (Patient reportedly had grand mal seizure witnessed and EMS was called. Seizure was done and he was rousing on EMS arrival. Facial abrasions and a lac at left eyebrow. Dried blood in nose. Complained of facial pain. History of seizures. He says he ran out of meds 2 days ago, awaiting pharmacy refill.) Injury during seizure: Fell, Other (facial and knees, per patient.). No: Neck injury Associated symptoms: Headache (frontal area). No: Chest pain, Nausea / vomiting History of seizures: Known seizure disorder Contributing factors: Out of meds (ran out of Keppra 2 days ago and he says the pharmacy was delayed in refill, so had not had meds. Also reportedly he had used some heroin prior to the seizure, per Medics report from bystanders. 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 He states the infection has stayed away. No new sores/infections.) Review of Systems Constitutional: denies: Fever, Chills Eyes: denies: Loss of vision Nose: denies: Rhinorrhea / runny nose, Congestion Throat: denies: Sore throat Cardiac: denies: Chest pain / pressure Respiratory: denies: Cough GI: denies: Abdominal Pain, Nausea, Vomiting, Diarrhea Skin: reports: Laceration (s) (left eyebrow from fall with seizure SAP INTEGRATION ARCHITECT. Abrasions on cheek/forehead/nose.) Musculoskeletal: reports: Joint pain (he says both knees are sore from the fall as well, but has full ROM of them.) Neurologic: reports: Headache, Head injury, LOC (with the seizure). denies: Focal weakness, Altered mental status PD PAST MEDICAL HISTORY - Past Medical History Past Medical History: Yes Cardiovascular: Hypertension, Coronary artery disease, Angina, [place] Respiratory: None Neuro: Head injury, Seizure disorder Endocrine/Autoimmune: None GI: None : Other HEENT: None Psych: Anxiety, Panic attacks, Post traumatic stress disorder Musculoskeletal: None Derm: Psoriasis - Past Surgical History Past Surgical History: Yes General: Appendectomy - Present Medications Home Medications: Ambulatory Orders Medication Instructions Recorded Confirmed levETIRAcetam [Levetiracetam] 1,500 mg PO BID 03/25/18 10/29/20 Clindamycin HCl [Clindamycin 300MG 300 mg PO TID 09/11/20 09/11/20 CAP] - Allergies Allergies/Adverse Reactions: Allergies Allergy/AdvReac Type Severity Reaction Status Date / Time ceftriaxone Allergy Itching Verified 10/29/20 20:44 morphine Allergy Hives Verified 10/29/20 20:44 Penicillins Allergy Hives Verified 10/29/20 20:44 - Social History Does the pt smoke?: Yes Smoking Status: Current every day smoker Does the pt drink ETOH?: No Does the pt have substance abuse?: Yes Substance Use and Type: Heroin - Immunizations Immunizations are current?: No Immunizations: TDAP >10years/unknown, Other immun not current - POLST Patient has POLST: No POLST Status: Full Code PD ED PE NORMAL - Vitals Vital signs reviewed: Yes - General General: Alert and oriented X 3, Well developed/nourished, Other (abrasions on face, dried blood in nares. Lac left eyebrow. He is able to answer questions fully. He is oriented. Good ROM of the knees/extremities. ) - HEENT HEENT: PERRL, EOMI (denies diplopia), Moist mucous membranes, Pharynx benign, Dentition benign (many teeth previously missing. No new dental injury/gum injury seen. ), Other (dried blood in nares without septal hematoma. Swelling nose without obvious deformity. Left eyebrow with 1.5 cm laceration with edges close and no bleeding right now. ) - Neck Neck: Supple, no meningeal sign, No bony TTP (but has some tenderness right lateral muscles. ), No adenopathy - Cardiac Cardiac: RRR, No murmur - Respiratory Respiratory: Clear bilaterally, Other (no chestwall tenderness. ) - Abdomen Abdomen: Soft, Non tender - Back Back: No spinal TTP - Derm Derm: Normal color, Warm and dry - Extremities Extremities: No tenderness to palpate, Normal ROM s pain, Other (knees slightly tender infrapatellar bilaterally with deformity nor effusion. Full ROM of the knees. Left hand has healed recent area infection without redness/drainage/warmth. No new areas of skin infection seen on extremities. ) - Neuro Neuro: Alert and oriented X 3, No motor deficit, No sensory deficit, Normal speech Results - Vitals Vitals: Vital Signs - 24 hr 10/29/20 10/29/20 10/29/20 20:35 20:40 22:40 Temperature 36.5 C 36.5 C 36.5 C Heart Rate 88 88 71 Respiratory 18 18 16 Rate Blood Pressure 166/107 H 166/107 H 152/96 H O2 Saturation 96 96 99 10/30/20 10/30/20 10/30/20 00:00 02:00 04:00 Temperature 36.6 C 36.6 C 36.6 C Heart Rate 71 65 65 Respiratory 16 16 15 Rate Blood Pressure 146/97 H 145/92 H 131/80 H O2 Saturation 100 100 97 Oxygen O2 Source Room air - Labs Labs: Laboratory Tests 10/29/20 10/29/20 10/29/20 21:16 21:16 21:16 WBC 5.5 RBC 4.79 Hgb 14.5 Hct 41.8 L MCV 87.3 MCH 30.3 MCHC 34.7 RDW 12.4 Plt Count 154 MPV 10.0 Neut # (Auto) 3.8 Lymph # (Auto) 1.2 L Cooper # (Auto) 0.5 Eos # (Auto) 0.1 Baso # (Auto) 0.0 Absolute Nucleated RBC 0.00 Nucleated RBC % 0.0 Sodium 140 Potassium 3.5 Chloride 98 L Carbon Dioxide 27 Anion Gap 15.0 H BUN 22 H Creatinine 1.0 Estimated GFR (MDRD) 84 L Glucose 165 H Calcium 9.5 Magnesium 2.2 Total Bilirubin 0.5 AST 26 ALT 27 Alkaline Phosphatase 81 Total Creatine Kinase 89 Total Protein 7.6 Albumin 3.9 Globulin 3.7 Albumin/Globulin Ratio 1.1 Lipase 25 Ethyl Alcohol < 5.0 - Rads (name of study) head CT Radiology: Prelim report reviewed (no ICH nor acute changes), See rad report cervical CT Radiology: Prelim report reviewed (no fractures), See rad report maxilofacial CT Radiology: Prelim report reviewed (no fractures. Some mild fluid in sinus. ), See rad report Procedures - Laceration (location) left eyebrow Length in cm: 1.5 Wound type: Linear, Into subcut fat, Clean Neurovascular status: Sensory intact Wound preparation: Wound explored, To the base, Other (cleansed with tap water well.). No: FB identified Skin layer closure: Dermabond, Steri strips Other: Patient tolerated well, No complications, Neurovascular intact, Tetanus UTD PD MEDICAL DECISION MAKING - ED course Complexity details: reviewed results, re-evaluated patient (he did not have his phone and did not know numbers for his friends. No means of getting ride home at this point. Prolonged ED stay due to disposition overnight. ), considered differential (Known seizure disorder and had seizure. Had been out of meds for 2 days and states pharmacy had been delayed in getting refill. He believes it will be available for pickup tomorrow. ), d/w patient Departure - Departure Disposition: 01 Home, Self Care Clinical Impression: Recurrent seizures Facial abrasion Qualifiers: Encounter type: initial encounter Qualified Code(s): S00.81XA - Abrasion of other part of head, initial encounter Eyebrow laceration Qualifiers: Encounter type: initial encounter Laterality: left Qualified Code(s): S01.112A - Laceration without foreign body of left eyelid and periocular area, initial encounter Nasal contusion Qualifiers: Encounter type: initial encounter Qualified Code(s): S00.33XA - Contusion of nose, initial encounter Condition: Stable Record reviewed to determine appropriate education?: Yes Instructions: ED Laceration Facial Sutr Tape Follow-Up: Wilson Christainson MD [Primary Care Provider] - Comments: Continue usual medications. Keep the Steri-Stripped laceration clean and dry. Other abrasions, use topical ointment lightly once or twice daily. Recheck if signs of infection. Tylenol ibuprofen if needed for pains.
[2020-10-29] MEDS ORDERED: ACETAMINOPHEN 325 MG TABLET PO STA (21:12)
[2020-10-29] MEDS ORDERED: levETIRAcetam 250 MG TABLET PO STA (21:12)
[2020-10-29 21:21] LABS: BASOPHILS % (AUTO) 0.2 %; EOSINOPHILS # (AUTO) 0.1 10^3/uL (0.0-0.7); EOSINOPHILS % (AUTO) 1.3 %; HCT - HEMATOCRIT 41.8 % (42.0-52.0); HGB - HEMOGLOBIN 14.5 g/dL (14.0-18.0); LYMPHOCYTES # (AUTO) 1.2 10^3/uL (1.5-3.5); LYMPHOCYTES % (AUTO) 21.2 %; MEAN CORPUSCULAR HEMOGLOBIN 30.3 pg (27.0-31.0); MEAN CORPUSCULAR HGB CONC 34.7 g/dL (32.0-36.0); MEAN CORPUSCULAR VOLUME 87.3 fL (80.0-94.0); MONOCYTES # (AUTO) 0.5 10^3/uL (0.0-1.0); MONOCYTES % (AUTO) 8.8 %; NEUTROPHILS # (AUTO) 3.8 10^3/uL (1.5-6.6); NEUTROPHILS % (AUTO) 68.3 %; PLT - PLATELET COUNT 154 10^3/uL (130-450); RED BLOOD COUNT 4.79 10^6/uL (4.70-6.10); RED CELL DISTRIBUTION WIDTH 12.4 % (12.0-15.0); WHITE BLOOD COUNT 5.5 x10^3/uL (4.8-10.8)
[2020-10-29 21:35] LABS: ALBUMIN 3.9 g/dL (3.2-5.5); ALBUMIN/GLOBULIN RATIO 1.1 (1.0-2.2); BILIRUBIN,TOTAL 0.5 mg/dL (0.2-1.0); CALCIUM 9.5 mg/dL (8.5-10.3); MAGNESIUM 2.2 mg/dL (1.7-2.8); POTASSIUM 3.5 mmol/L (3.5-5.0); TOTAL PROTEIN 7.6 g/dL (6.7-8.2)
--- NOTE | 2020-10-29 21:55 | CT Report ---
PROCEDURE: HEAD WO INDICATIONS: seizure and facial/head/neck injury with fall TECHNIQUE: Noncontrast 4.5 mm thick angled axial sections acquired from the foramen magnum to the vertex. For r adiation dose reduction, the following was used: automated exposure control, adjustment of mA and/or kV according to patient size. COMPARISON: None. FINDINGS: Image quality: Excellent. CSF spaces: Basal cisterns are patent. No extra-axial fluid collections. Ventricles are normal in size and shape. Brain: No midline shift. No intracranial masses or hemorrhage. Mcbride-white matter interface is norm al. Skull and face: Calvarium and visualized facial bones are intact, without suspicious lesions. Sinuses: Fluid level is noted in left maxillary sinus. IMPRESSION: 1. No CT evidence of acute intracranial pathology.. 2. No gross acute skull fracture. 3. Small amount of fluid seen in left maxillary sinus. Please correlate with CT facial bone findings. Reviewed by: Shahram Telles MD on 10/29/2020 9:53 PM PDT Approved by: Shahram Telles MD on 10/29/2020 9:53 PM PDT Station ID: [id number]
--- NOTE | 2020-10-29 21:56 | CT Report ---
PROCEDURE: CERVICAL SPINE WO INDICATIONS: seizure and facial/head/neck injury with fall TECHNIQUE: Noncontrast 3 mm thick sections acquired from the skull base to the T4 level. Sagittal and coronal r eformats were then constructed. For radiation dose reduction, the following was used: automated exp osure control, adjustment of mA and/or kV according to patient size. COMPARISON: None. FINDINGS: Image quality: Excellent. Bones: No fractures or dislocations. Degenerative endplate changes are seen at C5-6 level. Visualiz ed superior ribs are intact. Soft tissues: Prevertebral soft tissues are normal in thickness. No paravertebral hematomas. No ap ical pneumothoraces. IMPRESSION: 1. No acute cervical spine fracture or dislocation. 2. Mild degenerative disc disease at C5-6 level. Reviewed by: Shahram Telles MD on 10/29/2020 9:54 PM PDT Approved by: Shahram Telles MD on 10/29/2020 9:54 PM PDT Station ID: [id number]
--- NOTE | 2020-10-29 22:00 | CT Report ---
PROCEDURE: MAXILLOFACIAL WO INDICATIONS: seizure and facial/head/neck injury with fall TECHNIQUE: Noncontrast 1.5 mm thick axial images acquired from the mandible through the frontal sinuses, with co hamilton and sagittal reformatting. For radiation dose reduction, the following was used: automated ex posure control, adjustment of mA and/or kV according to patient size. COMPARISON: None. FINDINGS: Image quality: Excellent. Bones and teeth: Orbital hough are intact. Sinus hough show no fracture or deformity. Nasal bones and septum are intact. Visualized portions of the mandible demonstrate no fractures or subluxation. Zygomatic arches are intact. Pterygoid plates are intact. Visualized portions of the skull base an d auditory canals are intact. Sinuses: Paranasal sinuses are aerated, without fluid levels, mucosal thickening, or mucoceles. Mas toid air cells are aerated. Soft tissues: Mild mucosal thickening in right maxillary sinus is seen. Small amount of fluid is seen in dependent portion of left maxillary sinus. Mild mucosal thickening in bilateral ethmoid sinuses a lso seen. Bilateral mastoid air cells are well aerated. No enlarged lymph nodes. No soft tissue lace rations or debris. Vascular: Visualized vascular structures appear normal in the absence of contrast. Bony vascular fo ramina and canals are intact. IMPRESSION: 1. No acute facial bone or nasal bone fracture. Bilateral orbital hough are intact. 2. Mild mucosal thickening in right maxillary sinus and bilateral ethmoid sinuses. Small amount of fl uid in dependent portion of left maxillary sinus. Bilateral mastoid air cells are well aerated. Reviewed by: Shahram Telles MD on 10/29/2020 9:59 PM PDT Approved by: Shahram Telles MD on 10/29/2020 9:59 PM PDT Station ID: [id number]
[2020-10-30 06:21] VITALS: BP 135/91
[2020-10-30] MEDS ORDERED: levETIRAcetam 250 MG TABLET PO SCH (06:30)
[2020-10-30] MEDS ORDERED: levETIRAcetam 250 MG TABLET PO STA (06:30)
[2020-10-30] MEDS ORDERED: levETIRAcetam 250 MG TABLET ONE (06:41)
--- OUTSIDE RECORDS SUMMARY | 2020-11-02 02:37 | EXTERNAL MEDICAL SUMMARY RPT | Continuity of Care Document ---
:1980 Demographics Phone Unavailable Preferred Language Unknown Marital Status Unknown Rastafarian Affiliation Unknown Race Unknown Ethnic Group Unknown Author Organization [facility] Address [address] [place] [address] Phone Social History date description facility [phone]
== END 2020-10-30 06:43 | disposition home or self-care (01) ==
LOC: EDUNIT# → ED 20:35 → SUPCPDRO 20:35 → ED 10-30 06:43
DX: S01.112A Laceration without foreign body of left eyelid and periocular area, initial encounter (principal); W18.30XA Fall on same level, unspecified, initial encounter; T42.6X6A Underdosing of other antiepileptic and sedative-hypnotic drugs, initial encounter; G40.909 Epilepsy, unspecified, not intractable, without status epilepticus; Z91.138 Patient's unintentional underdosing of medication regimen for other reason; F17.200 Nicotine dependence, unspecified, uncomplicated; I10 Essential (primary) hypertension
CPT/HCPCS: 12011; 36415; 70450; 70486; 72125; 80053; 82550; 83690; 83735; 85025; 93005; 99283; 99284; A9270; G0480; 80320; 84484

== ENCOUNTER 2021-04-21 20:43 | Emergency (ER) | payer OTHER, MEDICARE, MEDICAID ==
--- NOTE | 2021-04-21 20:45 | ED Physician Documentation ---
History of Present Illness - Stated complaint Stated Complaint: FIT FOR CONFINEMENT - History obtained from History obtained from: Patient - History of Present Illness Timing: How many weeks ago (few weeks) Pain level now: 6 - Additonal information Additional information: brought to ED by police, currently under arrest. Brought to ED for evaluation of RUE pain, swelling, erythema. Patient is IVDA and has previous ED evaluations (here as well as other EDs) including admissions for cellulitis/abscess due to IVDA. He says he has had the RUE swelling, pain, redness before and says it never completely resolved despite treatment weeks ago in [facility]. He was admitted to this hospital ([facility]) for similar problem in August (left AMA). He says the lesion/area is worsening in size, worsening pain x several days. denies fever. Review of Systems Constitutional: denies: Fever, Chills, Sweats Skin: reports: Rash Musculoskeletal: reports: Extremity pain, Extremity swelling Neurologic: denies: Focal weakness, Numbness PD PAST MEDICAL HISTORY - Past Medical History Cardiovascular: Hypertension, Coronary artery disease, Angina, [place] Respiratory: None Neuro: Head injury, Seizure disorder Endocrine/Autoimmune: None GI: None : Other HEENT: None Psych: Anxiety, Panic attacks, Post traumatic stress disorder Musculoskeletal: None Derm: Psoriasis - Past Surgical History Past Surgical History: Yes General: Appendectomy - Present Medications Home Medications: Ambulatory Orders Medication Instructions Recorded Confirmed levETIRAcetam [Levetiracetam] 1,500 mg PO BID 03/25/18 10/29/20 Clindamycin HCl [Clindamycin 300MG 300 mg PO TID 09/11/20 09/11/20 CAP] Doxycycline Hyclate 100 mg PO BID #20 cap 04/21/21 - Allergies Allergies/Adverse Reactions: Allergies Allergy/AdvReac Type Severity Reaction Status Date / Time ceftriaxone Allergy Itching Verified 04/21/21 20:57 morphine Allergy Hives Verified 04/21/21 20:57 Penicillins Allergy Hives Verified 04/21/21 20:57 - Social History Does the pt smoke?: Yes Smoking Status: Current every day smoker Does the pt drink ETOH?: No Does the pt have substance abuse?: Yes - Immunizations Immunizations are current?: No Immunizations: TDAP >10years/unknown, Other immun not current - POLST Patient has POLST: No POLST Status: Full Code PD ED PE NORMAL - Vitals Vital signs reviewed: Yes - General General: Alert and oriented X 3, No acute distress, Well developed/nourished - Neuro Neuro: Alert and oriented X 3 PD ED PE EXPANDED - Extremities Extremities: Other (right posterolateral swelling, confluent erythema, TTP, fluctuance. no active drainage/discharge. there is erythematous streaking proxim al to the lesion 2-3 cm above elbow). No: Limited ROM RENE UE/Hands Visual: 1 - rash, swelling, tenderness Results - Vitals Vitals: Vital Signs - 24 hr 04/21/21 04/21/21 20:48 22:08 Temperature 36.8 C 36.5 C Heart Rate 83 75 Respiratory 15 18 Rate Blood Pressure 156/111 H 156/102 H O2 Saturation 100 99 Oxygen O2 Source Room air Procedures - Abscess I&D (location) Upper extremity right Radial Preparation: Chlorhexadine, Lidocaine 1% (buffered lidocaine) Incision: Incised with scalpel, Purulent drainage, Culture obtained Other: Pt tolerated well, Dressing applied, Antibiotic prescribed PD MEDICAL DECISION MAKING - ED course Complexity details: reviewed old records, considered differential, d/w patient ED course: right forearm abscess with surrounding cellulitis. I+D as above with large amount of pus expressed from the abscess. the remainder of the lesion is firm but without fluctuance, suggestive of cellulitis. He is given PO doxycycline and ibuprofen, rx for doxycycline Departure - Departure Disposition: 01 Home, Self Care Clinical Impression: Cellulitis, Abscess of right arm, IV drug abuse Condition: Good Instructions: ED Abscess IandD, ED Infec Skin Cellulitis Follow-Up: MARCELLA QUINTERO, MSN, [employer] [Credentialed Staff Provider] - Within 3 Days Prescriptions: Doxycycline Hyclate 100 mg PO BID #20 cap Discharge Date/Time: 04/21/21 22:10
[2021-04-21] MEDS ORDERED: BUFFERED LIDOCAINE 10 ML SYRINGE SUBQ STA (20:54)
[2021-04-21] MEDS ORDERED: DOXYCYCLINE 100 MG TABLET PO STA (21:33)
[2021-04-21] MEDS ORDERED: IBUPROFEN 600 MG TABLET PO STA (21:33)
[2021-04-21 22:09] VITALS: BP 156/102
== END 2021-04-21 22:10 | disposition home or self-care (01) ==
LOC: ED 20:43
DX: L03.114 Cellulitis of left upper limb (principal); L02.414 Cutaneous abscess of left upper limb; I10 Essential (primary) hypertension; F17.200 Nicotine dependence, unspecified, uncomplicated
CPT/HCPCS: 10060; 99282; 99283; A9270

== ENCOUNTER 2021-05-08 19:37 | Emergency (ER) | payer MEDICARE, MEDICAID ==
--- NOTE | 2021-05-08 20:36 | ED Physician Documentation ---
PD HPI SKIN - Stated complaint Stated Complaint: RT ARM PX,SWOLLEN - Chief complaint Chief Complaint: Wound - History obtained from History obtained from: Patient - Additional information Additional information: 40yo male with R arm pain and swelling x 3 days, preceded by an abscess on the other side of the same arm 1 month ago. Uses IVDU, heroin and meth. No fevers/chills. Review of Systems Ten Systems: 10 systems reviewed and negative Constitutional: reports: Reviewed and negative Nose: reports: Reviewed and negative Throat: reports: Reviewed and negative Cardiac: reports: Reviewed and negative PD PAST MEDICAL HISTORY - Past Medical History Past Medical History: Yes Cardiovascular: Hypertension, Coronary artery disease, Angina, [place] Respiratory: None Neuro: Head injury, Seizure disorder Endocrine/Autoimmune: None GI: None : Other HEENT: None Psych: Anxiety, Panic attacks, Post traumatic stress disorder Musculoskeletal: None Derm: Psoriasis - Past Surgical History Past Surgical History: Yes General: Appendectomy - Present Medications Home Medications: Ambulatory Orders Medication Instructions Recorded Confirmed levETIRAcetam [Levetiracetam] 1,500 mg PO BID 03/25/18 05/08/21 Oxycodone HCl/Acetaminophen 1 - 2 each PO Q6H PRN #14 tablet 05/08/21 [Percocet 5-325 mg Tablet] Sulfamethox/Trimeth 800/160 1 each PO BID #14 tablet 05/08/21 [Bactrim Ds 800/160] - Allergies Allergies/Adverse Reactions: Allergies Allergy/AdvReac Type Severity Reaction Status Date / Time ceftriaxone Allergy Itching Verified 05/08/21 19:52 morphine Allergy Hives Verified 05/08/21 19:52 Penicillins Allergy Hives Verified 05/08/21 19:52 - Social History Does the pt smoke?: Yes Smoking Status: Current every day smoker Does the pt drink ETOH?: No Does the pt have substance abuse?: Yes - Immunizations Immunizations are current?: No Immunizations: TDAP >10years/unknown, Other immun not current - POLST Patient has POLST: No POLST Status: Full Code PD ED PE NORMAL - Vitals Vital signs reviewed: Yes - General General: Alert and oriented X 3, No acute distress - Extremities Extremities: Other (Large pointed abscess measuring about 6 cm around to the proximal anterior right forearm with surrounding cellulitis.) - Neuro Neuro: Alert and oriented X 3, Normal speech Results - Vitals Vitals: Vital Signs - 24 hr 05/08/21 05/08/21 05/08/21 19:52 20:22 21:06 Temperature 36.6 C 36.6 C Heart Rate 90 90 81 Respiratory 20 20 18 Rate Blood Pressure 190/100 H 182/91 H 172/88 H O2 Saturation 100 100 99 Oxygen O2 Source Room air Procedures - Abscess I&D (location) R forearm Preparation: Lidocaine 1% Incision: Incised with scalpel, Purulent drainage, Loculations broken, Culture obtained Other: Pt tolerated well, Dressing applied, Antibiotic prescribed Departure - Departure Disposition: Home, Self Care Clinical Impression: Abscess, IV drug abuse Condition: Good Record reviewed to determine appropriate education?: Yes Instructions: ED Abscess IandD Prescriptions: Sulfamethox/Trimeth 800/160 [Bactrim Ds 800/160] 1 each PO BID #14 tablet Oxycodone HCl/Acetaminophen [Percocet 5-325 mg Tablet] 1 - 2 each PO Q6H PRN #14 tablet PRN Reason: pain Comments: Prescription sent electronically to [facility] We are performing a wound culture, the results should be done in 48-72 hours. If antibiotic change is necessary we will call you. Return if worse in the meantime, especially if you develop increased pain, fevers, cannot keep down the medication. Otherwise follow-up with your physician in approximately 2-3 days. I am prescribing a short course of narcotic pain medication for you. These are potentially dangerous and addictive medications that should be used carefully. These medications may constipate you. Take an ihbj-fyx-wmdwhai stool softener (docusate) twice daily with plenty of water while taking these medications. If you go 24 hours without a bowel movement, take onlr-yeb-ghwzyig miralax, per package instructions. Do not drink or drive while taking these medications. If you received narcotic or sedating medications while in the emergency department, do not drive for 24 hours. Store this medication in a safe, secure place and out of reach of children. It is a violation of federal law to give or sell this medication to another person or to use in a manner other than prescribed. The ED will not refill narcotic prescriptions, including prescriptions lost or stolen. To dispose of unwanted medications: 1. [facility] at [address] in [place] has a medication drop box. They accept prescription medications (in pill form) Saturday through Saturday 9:00 a.m. to 5:00 p.m. 2. The [facility] accepts prescription medications (in pill form only) for disposal year round. Call for more information. 3. Contact the [facility] for the next [facility] sponsored prescription drug collection event. , [phone], or [phone]; Note that many narcotic pain relievers also contain Tylenol/acetaminophen. Please ensure that your total dose of acetaminophen from all sources does not exceed 3 g (3000 mg) per day. Discharge Date/Time: 05/08/21 21:14
[2021-05-08] MEDS ORDERED: oxyCODONE 5 MG TABLET PO STA (20:45)
[2021-05-08] MEDS ORDERED: SULFAMETH/TRIMETH DS 800/160 MG TABLET PO STA (20:45)
[2021-05-08 21:07] VITALS: BP 172/88
== END 2021-05-08 21:14 | disposition home or self-care (01) ==
LOC: ED 19:37
DX: L02.413 Cutaneous abscess of right upper limb (principal); L03.113 Cellulitis of right upper limb; F11.10 Opioid abuse, uncomplicated; F15.10 Other stimulant abuse, uncomplicated; I10 Essential (primary) hypertension; F17.200 Nicotine dependence, unspecified, uncomplicated
CPT/HCPCS: 10060; 87070; 87205; 99283; A9270

== ENCOUNTER 2021-05-10 07:10 | Emergency (ER) | payer MEDICARE, MEDICAID ==
--- NOTE | 2021-05-10 08:13 | ED Physician Documentation ---
PD HPI SKIN - Stated complaint Stated Complaint: RT ARM PX - Chief complaint Chief Complaint: Wound - History obtained from History obtained from: Patient - History of Present Illness Timing - onset: How many days ago (several) Timing - duration: Days (several) Timing - details: Gradual onset, Still present Location: RUE (proximal right forearm abscess and progressive redness/swelling of forearm.) Quality / character: Painful, Discolored, Swelling, Draining Associated symptoms: Myalgias (right forearm). No: Fever, N/V/D Contributing factors: Other (IV drug use) Similar symptoms before: Diagnosis (skin abscesses and infections prior times.) Recently seen: Emergency Dept (seen 2 days ago for this, with I&D forearm in couple sites, drainage and Rx for abx/pain meds. 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 He presents with increased swelling, redness and pain down forearm and hand now.) Review of Systems Constitutional: denies: Fever, Chills Nose: denies: Rhinorrhea / runny nose, Congestion Throat: denies: Sore throat Respiratory: denies: Cough GI: denies: Nausea, Vomiting Musculoskeletal: reports: Extremity swelling Neurologic: denies: Focal weakness (has pain with hand/wrist movement leading to feeling of weakness.), Numbness PD PAST MEDICAL HISTORY - Past Medical History Past Medical History: Yes Cardiovascular: Hypertension, Coronary artery disease, Angina, [place] Respiratory: None Neuro: Head injury, Seizure disorder Endocrine/Autoimmune: None GI: None : Other HEENT: None Psych: Anxiety, Panic attacks, Post traumatic stress disorder Musculoskeletal: None Derm: Psoriasis - Past Surgical History Past Surgical History: Yes General: Appendectomy - Present Medications Home Medications: Ambulatory Orders Medication Instructions Recorded Confirmed levETIRAcetam [Levetiracetam] 1,500 mg PO BID 03/25/18 05/10/21 Oxycodone HCl/Acetaminophen 1 - 2 each PO Q6H PRN #14 tablet 05/08/21 05/10/21 [Percocet 5-325 mg Tablet] Sulfamethox/Trimeth 800/160 1 each PO BID #14 tablet 05/08/21 05/10/21 [Bactrim Ds 800/160] - Allergies Allergies/Adverse Reactions: Allergies Allergy/AdvReac Type Severity Reaction Status Date / Time ceftriaxone Allergy Itching Verified 05/10/21 07:20 morphine Allergy Hives Verified 05/10/21 07:20 Penicillins Allergy Hives Verified 05/10/21 07:20 - Social History Does the pt smoke?: Yes Smoking Status: Current every day smoker Does the pt drink ETOH?: Yes Does the pt have substance abuse?: Yes Substance Use and Type: Meth, Heroin - Immunizations Immunizations are current?: No Immunizations: TDAP >10years/unknown, Other immun not current - POLST Patient has POLST: No POLST Status: Full Code PD ED PE NORMAL - Vitals Vital signs reviewed: Yes - General General: Alert and oriented X 3, Well developed/nourished - Neck Neck: Supple, no meningeal sign, No adenopathy - Cardiac Cardiac: RRR, No murmur - Respiratory Respiratory: Clear bilaterally - Abdomen Abdomen: Soft, Non tender - Derm Derm: Warm and dry, Other (swelling and firmness without fluctuance at abscess sites. ) - Extremities Extremities: Other (right forearm with open incisions from recent I&Ds, with mild drainage from radial side wound. He presents with wrap over proximal forearm that is fairly snug. Edema and redness distal to dressing. No edema/redness proximal. Pain with gripping hand. Passive extension of fingers does not hurt though.) - Neuro Neuro: Alert and oriented X 3, No sensory deficit, Normal speech, Other (pulses at wrist and cap refill fingers are okay. ) Results - Vitals Vitals: Vital Signs - 24 hr 05/10/21 05/10/21 05/10/21 07:21 07:51 09:45 Temperature 36.3 C L 36.2 C L Heart Rate 75 72 71 Respiratory 18 16 12 Rate Blood Pressure 169/98 H 145/96 H O2 Saturation 100 100 100 Oxygen O2 Source Room air PD MEDICAL DECISION MAKING - ED course Complexity details: reviewed old records, reviewed results (I discussed CT scan and labs with pt, who agreed initially, but then declined testing when having difficulty with IV start and then "taking too long". He wanted to leave and will go to pharmacy and get prior scripts for abx/pain meds. I conveyed my conern for needing further drainage/etc.), considered differential (swelling, redness, pain in forearm distal to abscesses. some edema I believe is from tight dressing proximal forearm as edema has decreased in ER with wrapping off. Redness and still moderate swelling present. Concern for increased pressure in forearm co mpartment and residual abscess.), d/w patient ED course: I conveyed my concern for possible further drainage needed, injury to muscles, and potential hospitalization for IV meds. 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 Departure - Departure Disposition: 01 Home, Self Care Clinical Impression: Abscess, Cellulitis of right forearm Condition: Stable Record reviewed to determine appropriate education?: Yes Instructions: ED Infec Skin Cellulitis Comments: The antibiotics and pain medicine should still be available at the pharmacy from your visit 2 days ago. Pick them up and start use. Use some dressing for the open wounds. Be sure not to wrap it too tightly as I think some of it the swelling in your arm and hand were from restriction of ret urn flow at the area of the wrapping. You still have obviously infection through the tissue in the forearm and then needs the antibiotics. Elevate and rest your arm often, use a sling. Recheck of this in the next 2 to 3 days either walk-in clinic or here in the ER if you are unable to see your primary care. We want to ensure this is improving. Return if significantly worsening or general symptoms such as fever and vomiting for further evaluation as we were considering such as blood tests, IV antibiotics, imaging of the forearm etc. Discharge Date/Time: 05/10/21 10:40
[2021-05-10] MEDS ORDERED: HYDROmorphone 1 MG/ML CARPUJECT IVP STA (08:22)
[2021-05-10] MEDS ORDERED: CLINDAMYCIN 600 MG/50 ML 50 ML IV ONE (08:22)
[2021-05-10] MEDS ORDERED: KETOROLAC 15 MG/ML VIAL IVP STA (08:22)
[2021-05-10] MEDS ORDERED: IOVERSOL 320 100 ML VIAL IVP ONE (09:04)
[2021-05-10] MEDS ORDERED: CLINDAMYCIN 300 MG/2 ML VIAL IM STA (09:32)
[2021-05-10] MEDS ORDERED: HYDROmorphone 1 MG/ML CARPUJECT IM STA (09:32)
[2021-05-10] MEDS ORDERED: IBUPROFEN 600 MG TABLET PO STA (09:33)
[2021-05-10 09:46] VITALS: BP 145/96
== END 2021-05-10 10:40 | disposition home or self-care (01) ==
LOC: ED 07:10
DX: L02.413 Cutaneous abscess of right upper limb (principal); L03.113 Cellulitis of right upper limb; I10 Essential (primary) hypertension; F17.200 Nicotine dependence, unspecified, uncomplicated
CPT/HCPCS: 96372; 99283; 99284; A9270; J1170; Q9967; 80053; 82550; 83690; 85025

== ENCOUNTER 2021-10-06 08:00 | Outpatient (CLI) | payer MEDICARE, MEDICAID | END 2021-10-06 23:59 | LOC: LAB 08:00 | PROVIDERS: ATTEND Physician Assistant | DX: L02.413 Cutaneous abscess of right upper limb (principal) | CPT/HCPCS: 87070; 87077; 87205 ==

== ENCOUNTER 2021-10-12 13:21 | Emergency (ER) | payer OTHER, MEDICARE, MEDICAID ==
[2021-10-12] MEDS ORDERED: CLINDAMYCIN 150 MG CAPSULE PO STA (13:25)
[2021-10-12 13:30] VITALS: BP 180/111
--- NOTE | 2021-10-12 13:33 | ED Physician Documentation ---
History of Present Illness - Stated complaint Stated Complaint: FIT FOR CONFINEMENT - History obtained from History obtained from: Patient, Police - History of Present Illness Timing: How many weeks ago (1) Pain level max: 0 Pain level now: 0 Improved by: nothing Worsened by: nothing - Additonal information Additional information: Patient brought in by police. Being booked into [facility] to have a abscess follow- up. He was seen at a walk-in clinic about 6 days ago and the abscess was drained. Placed on doxycycline. He states that it is "100 times better". No fevers. No chills. No drainage. Review of Systems Constitutional: denies: Fever, Chills GI: denies: Nausea, Diarrhea : denies: Dysuria Skin: denies: Rash Musculoskeletal: denies: Neck pain, Back pain Neurologic: denies: Headache PD PAST MEDICAL HISTORY - Past Medical History Cardiovascular: Hypertension, Coronary artery disease, Angina, [place] Respiratory: None Neuro: Head injury, Seizure disorder Endocrine/Autoimmune: None GI: None : Other HEENT: None Psych: Anxiety, Panic attacks, Post traumatic stress disorder Musculoskeletal: None Derm: Psoriasis - Past Surgical History Past Surgical History: Yes General: Appendectomy - Present Medications Home Medications: Ambulatory Orders Medication Instructions Recorded Confirmed levETIRAcetam [Levetiracetam] 1,500 mg PO BID 03/25/18 05/10/21 Oxycodone HCl/Acetaminophen 1 - 2 each PO Q6H PRN #14 tablet 05/08/21 05/10/21 [Percocet 5-325 mg Tablet] Sulfamethox/Trimeth 800/160 1 each PO BID #14 tablet 05/08/21 05/10/21 [Bactrim Ds 800/160] clindamycin HCL [Cleocin HCl] 300 mg PO Q6H #40 cap 10/12/21 - Allergies Allergies/Adverse Reactions: Allergies Allergy/AdvReac Type Severity Reaction Status Date / Time ceftriaxone Allergy Itching Verified 10/12/21 13:30 morphine Allergy Hives Verified 10/12/21 13:30 Penicillins Allergy Hives Verified 10/12/21 13:30 - Social History Does the pt smoke?: Yes Smoking Status: Current every day smoker Does the pt drink ETOH?: Yes Does the pt have substance abuse?: Yes - Immunizations Immunizations are current?: No Immunizations: TDAP >10years/unknown, Other immun not current - POLST Patient has POLST: No POLST Status: Full Code PD ED PE NORMAL - Vitals Vital signs reviewed: Yes - General General: Alert and oriented X 3, No acute distress - HEENT HEENT: Moist mucous membranes - Neck Neck: Supple, no meningeal sign - Cardiac Cardiac: RRR - Respiratory Respiratory: No respiratory distress, Clear bilaterally - Abdomen Abdomen: Soft, Non tender, Non distended - Derm Derm: Warm and dry - Extremities Extremities: Other (Healing abscess to the right antecubital fossa. Mild cellulitis. No fluctuance or drainage currently.) - Neuro Neuro: Alert and oriented X 3 Results - Vitals Vitals: Vital Signs - 24 hr 10/12/21 13:26 Temperature 36.2 C L Heart Rate 94 Respiratory 18 Rate Blood Pressure 180/111 H O2 Saturation 100 Oxygen O2 Source Room air PD MEDICAL DECISION MAKING - ED course Complexity details: reviewed old records, considered differential, d/w patient ED course: Healing abscess to the right forearm. Mild cellulitis. Culture is group B strep. We will change to clindamycin. He is allergic to insulin and cephalosporins. Patient is well-appearing, nontoxic. Afebrile. No indication for repeat drainage. Patient counseled regarding signs and symptoms for which I believe and urgent re-evaluation would be necessary. Patient with good understanding of and agreement to plan and is comfortable going home at this time patient discharged to police custody. This document was made in part using voice recognition software. While efforts are made to proofread this document, sound alike and grammatical errors may occur. Message left for Jose Eduardo NICK [facility] Departure - Departure Disposition: 01 Home, Self Care Clinical Impression: Abscess re-check, Abscess of right arm, Cellulitis Condition: Good Instructions: ED Abscess IandD Follow-Up: JOSE EDUARDO MARINO ARNP [Physician No Access] - Prescriptions: clindamycin HCL [Cleocin HCl] 300 mg PO Q6H #40 cap Comments: You will need to be changed to clindamycin 300mg by mouth every 6 hours x 10 days. Please follow up with your doctor for recheck in 2-3 days. Keep the wound clean.
--- OUTSIDE RECORDS SUMMARY | 2021-10-12 13:39 | EXTERNAL MEDICAL SUMMARY RPT | Continuity of Care Document ---
:1980 Author Organization [facility] Address [address] [place] [address] Phone Care Team Providers Name Role Phone Price Unavailable Unavailable Allergies No information. Encounters No information. Medications date description facility 20210718 Clonidine Hydrochloride 0.1 MG Oral Tab [facility] [id number] 24 HR metoprolol succinate 50 MG Extend ed Release [facility] Tablet 20210718 buspirone hydrochloride 10 MG Oral Tabl [facility] 20210718 Trazodone Hydrochloride 100 MG Oral Tab [facility] 20210718 Lisinopril 20 MG Oral Tablet [facility] spital [id number] Sertraline 50 MG Oral Tablet [facility] spital [id number] Levetiracetam 500 MG Oral Tablet [facility] 20210718 gabapentin 300 MG Oral Capsule [facility] 11710733 Furosemide 20 MG Oral Tablet [facility] [id number] cefdinir 300 MG Oral Capsule [facility] [id number] 24 HR Nicotine 0.875 MG/HR Transdermal Patch [facility] Problems date description facility [id number] Cellulitis of right upper limb [facility] Procedures date description facility [id number] General Physician [facility] [id number] [facility] [id number] Diagnosis [facility] Results No information. Vital Signs date measurement value source 20210714 weight_standard 83.01 lb 20210714 weight_metric 37.65 kg 20210714 temperature_standard 99.5 F 20210714 temperature_metric 37.5 C 20210714 respiration_rate 20 /min 20210714 height_standard 72 in 20210714 height_metric 182.88 cm 20210714 heart_rate 92 /min 20210714 BP_systolic 160 mm[Hg] 20210714 BP_diastolic 86 mm[Hg] 20210714 BMI 24.8 kg/m2 20210718 temperature_standard 98.7 F 20210718 temperature_metric 37.06 C 20210718 respiration_rate 18 /min 20210718 heart_rate 89 /min 20210718 BP_systolic 176 mm[Hg] 20210718 BP_diastolic 108 mm[Hg]
== END 2021-10-12 13:51 | disposition home or self-care (01) ==
LOC: ED 13:21
DX: L03.113 Cellulitis of right upper limb (principal); I10 Essential (primary) hypertension; F17.200 Nicotine dependence, unspecified, uncomplicated
CPT/HCPCS: 99282; A9270

== ENCOUNTER 2021-12-07 14:27 | Emergency (ER) | payer OTHER, MEDICAID, MEDICARE ==
--- NOTE | 2021-12-07 14:37 | ED Physician Documentation ---
PD HPI SKIN - Stated complaint Stated Complaint: R ARM ABCESS - History obtained from History obtained from: Patient - History of Present Illness Timing - onset: How many days ago (several days to about a week of some soreness right forearm, with swelling/tenderness. Rx oral abx but swelling has increased the past few days. [facility] of [facility]&D of developing abscess.) Timing - duration: Days Timing - details: Gradual onset, Still present Location: RUE (proximal ulnar side forearm.) Quality / character: Painful, Discolored (red), Swelling. No: Draining Associated symptoms: Other (has patchy scaly rash areas on arms, shins bilaterally c/w psoriasis. Has Rx steroid cream and ointment in the past. Has had skin infections related to the psoriasis mainly. Prior history of staph.) Contributing factors: Other (psoriatic lesions in that area.). No: Recent illness Similar symptoms before: Diagnosis (staph infections.) Recently seen: Other ([facility]. Patient says the provider has not examined him in 3-4 days though.) Review of Systems Constitutional: denies: Fever, Chills, Myalgias Nose: denies: Rhinorrhea / runny nose, Congestion Throat: denies: Sore throat Respiratory: denies: Cough GI: denies: Nausea, Vomiting, Diarrhea Skin: reports: Rash (chronic psoriasis.) PD PAST MEDICAL HISTORY - Past Medical History Cardiovascular: Hypertension, Angina, [place] Respiratory: None Neuro: Head injury, Seizure disorder Endocrine/Autoimmune: None GI: None : Other HEENT: None Psych: Anxiety, Panic attacks, Post traumatic stress disorder Musculoskeletal: None Derm: Psoriasis - Past Surgical History Past Surgical History: Yes General: Appendectomy - Present Medications Home Medications: Ambulatory Orders Medication Instructions Recorded Confirmed levETIRAcetam [Levetiracetam] 1,500 mg PO BID 03/25/18 05/10/21 Oxycodone HCl/Acetaminophen 1 - 2 each PO Q6H PRN #14 tablet 05/08/21 05/10/21 [Percocet 5-325 mg Tablet] Sulfamethox/Trimeth 800/160 1 each PO BID #14 tablet 05/08/21 05/10/21 [Bactrim Ds 800/160] clindamycin HCL [Cleocin HCl] 300 mg PO Q6H #40 cap 10/12/21 Triamcinolone 0.1% Cream [Kenalog 1 applic TOP DAILY 10 Days #15 gm 12/07/21 0.1% Cream] Vits A and D/White Pet/Lanolin [A 1 applic TP DAILY #42.5 gm 12/07/21 and D Ointment] - Allergies Allergies/Adverse Reactions: Allergies Allergy/AdvReac Type Severity Reaction Status Date / Time ceftriaxone Allergy Itching Verified 12/07/21 14:56 morphine Allergy Hives Verified 12/07/21 14:56 Penicillins Allergy Hives Verified 12/07/21 14:56 - Social History Does the pt smoke?: Yes Smoking Status: Current every day smoker Does the pt drink ETOH?: Yes Does the pt have substance abuse?: Yes - Immunizations Immunizations are current?: No Immunizations: TDAP >10years/unknown, Other immun not current - POLST Patient has POLST: No POLST Status: Full Code PD ED PE NORMAL - Vitals Vital signs reviewed: Yes - General General: Alert and oriented X 3, Well developed/nourished - Cardiac Cardiac: RRR, No murmur - Respiratory Respiratory: Clear bilaterally - Abdomen Abdomen: Soft, Non tender - Derm Derm: Normal color, Warm and dry, Other (psoriatic raised scaly patches on shins, forearms, elbows, upper arms bilaterally. Right forearm with area of tender, red, warm skin with underlying fluctuance. No drainage. underlies area of psoriatic lesions. ) - Neuro Neuro: Alert and oriented X 3, No motor deficit, No sensory deficit, Normal speech Results - Vitals Vitals: Vital Signs - 24 hr 12/07/21 12/07/21 14:56 16:00 Temperature 37.1 C 37.1 C Heart Rate 98 93 Respiratory 16 16 Rate Blood Pressure 165/107 H 146/109 H O2 Saturation 100 100 Oxygen O2 Source Room air - Labs Labs: Microbiology 12/07/21 15:20 Wound Culture - Preliminary Arm - Right Procedures - Abscess I&D (location) right forearm Preparation: Confirmed with ultrasound, Marcaine 0.25% Incision: Incised with scalpel, Purulent drainage, Irrigated, Packed, Culture obtained Other: Pt tolerated well, Dressing applied, Antibiotic prescribed PD MEDICAL DECISION MAKING - ED course Complexity details: considered differential (presume staph abscess developing in area of psoriasis. he is on oral abx which he can continue. Laura did not bring list of meds, but I would presume staph coverage. I will leave message for truong payan with my ideas of treatment. ), d/w patient, d/w [employer] consultant (I left phone voice mail on Lynda Fowler phone. ) Departure - Departure Disposition: 01 Home, Self Care Clinical Impression: Abscess of forearm, right, Psoriasis Condition: Stable Instructions: ED Abscess IandD Follow-Up: LYNDA FOWLER ARNP [Physician No Access] - Prescriptions: Vits A and D/White Pet/Lanolin [A and D Ointment] 1 applic TP DAILY #42.5 gm Triamcinolone 0.1% Cream [Kenalog 0.1% Cream] 1 applic TOP DAILY 10 Days #15 gm Comments: Leave the packing in the abscess site for 2 days and then it can get removed. This allows for better drainage from the wound. Continue with your current antibiotics. We did do a culture every of the purulence and that should result in 2 days. Your provider can modify the antibiotic choice based on that if needed. Consider anti-inflammatory such as ibuprofen 3 times a day regularly for the next week. For your psoriasis, could consider triamcinolone steroid cream to the major spots followed by A&E ointment to help soften them. I left a message with the [facility] provider, all to Malcolm NICK, with my thoughts and recommendations. Discharge Date/Time: 12/07/21 16:02
[2021-12-07] MEDS ORDERED: DEXAMETHASONE 10 MG/ML VIAL PO STA (14:49)
[2021-12-07] MEDS ORDERED: HYDROcod/ACETAM 5/325 MG TABLET PO STA (14:49)
[2021-12-07] MEDS ORDERED: CHERRY SYRUP 10 ML UDC PO ONE (14:49)
[2021-12-07 16:01] VITALS: BP 146/109
== END 2021-12-07 16:02 | disposition home or self-care (01) ==
LOC: ED 14:27
DX: L02.413 Cutaneous abscess of right upper limb (principal); L40.9 Psoriasis, unspecified; I10 Essential (primary) hypertension; F17.200 Nicotine dependence, unspecified, uncomplicated
CPT/HCPCS: 10061; 87070; 87181; 87205; 99284

== ENCOUNTER 2022-10-11 17:30 | Outpatient (CLI) | payer MEDICARE, MEDICAID ==
[2022-10-11 21:02] LABS: BASOPHILS % (AUTO) 0.3 %; EOSINOPHILS # (AUTO) 0.2 10^3/uL (0.0-0.7); EOSINOPHILS % (AUTO) 3.1 %; HCT - HEMATOCRIT 40.1 % (42.0-52.0); HGB - HEMOGLOBIN 13.1 g/dL (14.0-18.0); LYMPHOCYTES # (AUTO) 1.4 10^3/uL (1.5-3.5); LYMPHOCYTES % (AUTO) 23.3 %; MEAN CORPUSCULAR HGB CONC 32.7 g/dL (32.0-36.0); MEAN PLATELET VOLUME 10.9 fL (7.4-11.4); MONOCYTES # (AUTO) 0.5 10^3/uL (0.0-1.0); MONOCYTES % (AUTO) 7.8 %; NEUTROPHILS # (AUTO) 3.9 10^3/uL (1.5-6.6); NEUTROPHILS % (AUTO) 65.3 %; PLT - PLATELET COUNT 184 10^3/uL (130-450); RED BLOOD COUNT 4.22 10^6/uL (4.70-6.10); RED CELL DISTRIBUTION WIDTH 12.8 % (12.0-15.0); WHITE BLOOD COUNT 5.9 x10^3/uL (4.8-10.8)
[2022-10-11 21:09] LABS: ALBUMIN 3.4 g/dL (3.2-5.5); ALBUMIN/GLOBULIN RATIO 0.8 (1.0-2.2); BILIRUBIN,TOTAL 0.4 mg/dL (0.2-1.0); CALCIUM 8.8 mg/dL (8.5-10.3); CREATININE 0.9 mg/dL (0.6-1.2); TOTAL PROTEIN 7.5 g/dL (6.7-8.2)
== END 2022-10-11 17:45 | disposition home or self-care (01) ==
LOC: LAB.N 17:30
PROVIDERS: ATTEND Physician Assistant Medical
DX: R60.0 Localized edema (principal)
CPT/HCPCS: 36415; 80053; 83880; 84443; 85025

== ENCOUNTER 2023-11-16 06:27 | Outpatient (CLI) | payer MEDICARE, MEDICAID | END 2023-11-16 23:59 | disposition critical access hospital (66) | LOC: EMS 06:27 | DX: S01.00XA Unspecified open wound of scalp, initial encounter (principal); R46.4 Slowness and poor responsiveness; Y04.8XXA Assault by other bodily force, initial encounter | CPT/HCPCS: A0425; A0429 ==

== ENCOUNTER 2023-11-16 06:48 | Emergency (ER) | payer MEDICARE, MEDICAID ==
[2023-11-16] MEDS ORDERED: LIDOCAINE 1%-EPI 1:100000 20 ML MDV SUBQ STA (07:01)
[2023-11-16 07:07] LABS: BASOPHILS % (AUTO) 0.2 %; EOSINOPHILS # (AUTO) 0.1 10^3/uL (0.0-0.7); EOSINOPHILS % (AUTO) 0.9 %; HCT - HEMATOCRIT 38.8 % (42.0-52.0); HGB - HEMOGLOBIN 12.5 g/dL (14.0-18.0); LYMPHOCYTES # (AUTO) 1.4 10^3/uL (1.5-3.5); LYMPHOCYTES % (AUTO) 24.8 %; MEAN CORPUSCULAR HEMOGLOBIN 28.4 pg (27.0-31.0); MEAN CORPUSCULAR HGB CONC 32.2 g/dL (32.0-36.0); MEAN CORPUSCULAR VOLUME 88.2 fL (80.0-94.0); MONOCYTES # (AUTO) 0.4 10^3/uL (0.0-1.0); MONOCYTES % (AUTO) 7.3 %; NEUTROPHILS # (AUTO) 3.8 10^3/uL (1.5-6.6); NEUTROPHILS % (AUTO) 66.4 %; PLT - PLATELET COUNT 188 10^3/uL (130-450); WHITE BLOOD COUNT 5.7 x10^3/uL (4.8-10.8)
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
[2023-11-16 07:51] LABS: ALBUMIN 3.8 g/dL (3.2-5.5); ALBUMIN/GLOBULIN RATIO 0.9 (1.0-2.2); ALKALINE PHOSPHATASE 79 IU/L (42-121); ALT ALANINE AMINOTRANSFERASE 15 IU/L (10-60); AST ASPARTATE AMINOTRANSFERASE 19 IU/L (10-42); BILIRUBIN,TOTAL 0.5 mg/dL (0.2-1.0); BUN - BLOOD UREA NITROGEN 20 mg/dL (6-20); CALCIUM 9.8 mg/dL (8.5-10.3); CARBON DIOXIDE - CO2 29 mmol/L (21-32); CHLORIDE 99 mmol/L (101-111); CREATININE 0.8 mg/dL (0.6-1.3); GFR - MDRD 107 (>89); GLUCOSE 102 mg/dL (74-104); LIPASE < 10 U/L (11-82); POTASSIUM 3.4 mmol/L (3.5-4.5); SODIUM 135 mmol/L (135-145); TOTAL PROTEIN 8.1 g/dL (6.4-8.9)
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
[2023-11-16] MEDS: ACETAMINOPHEN 500 MG TABLET PO STA (08:15)
[2023-11-16] MEDS: KETOROLAC 15 MG/ML VIAL IVP STA (08:17)
[2023-11-16 10:57] VITALS: BP 198/118; O2SAT 98
== END 2023-11-16 10:50 | disposition home or self-care (01) ==
LOC: EDUNIT# → ED 06:48
DX: S01.01XA Laceration without foreign body of scalp, initial encounter (principal); S16.1XXA Strain of muscle, fascia and tendon at neck level, initial encounter; Y00.XXXA Assault by blunt object, initial encounter; I10 Essential (primary) hypertension; F17.200 Nicotine dependence, unspecified, uncomplicated; Z79.899 Other long term (current) drug therapy
CPT/HCPCS: 12002; 36415; 70450; 72125; 80053; 83690; 85025; 99284; A9270

== ENCOUNTER 2023-11-30 08:00 | Outpatient (CLI) | payer MEDICARE, MEDICAID | END 2023-11-30 23:59 | disposition home or self-care (01) | LOC: LAB.S 08:00 | PROVIDERS: ATTEND Family Medicine | DX: L03.211 Cellulitis of face (principal) | CPT/HCPCS: 87070; 87205 ==